=== PATIENT | male | born 1945 | race Caucasian/White ===

== ENCOUNTER 2025-02-13 09:14 | Inpatient (IN) ==
--- NOTE | 2025-01-19 15:01 | PAT Medication Instructions ---
Medication Instructions Date of Service January 19, 2025 Home Medications acetaminophen 500 mg tablet 500 mg PO QID PRN Pain atenolol 50 mg tablet 50 mg PO HS atorvastatin 20 mg tablet 20 mg PO HS empagliflozin 10 mg tablet (Jardiance) 10 mg PO QAM metformin 1,000 mg tablet 1,000 mg PO BID naproxen sodium 220 mg tablet (Aleve) 220 mg PO BID PRN Pain semaglutide 0.25 mg or 0.5 mg (2 mg/3 mL) subcutaneous pen injector (Ozempic) 0.5 mg subcut WK diabetes valsartan 80 mg tablet 80 mg PO HS ASK your surgeon for instructions naproxen sodium 220 mg tablet (Aleve) 220 mg PO BID PRN Pain STOP 7 days prior to surgery semaglutide 0.25 mg or 0.5 mg (2 mg/3 mL) subcutaneous pen injector (Ozempic) 0.5 mg subcut WK diabetes STOP taking 3 days before surgery empagliflozin 10 mg tablet (Jardiance) 10 mg PO QAM DO NOT take the morning of surgery metformin 1,000 mg tablet 1,000 mg PO BID Take morning of surgery With a small sip of water, OTHERWISE NOTHING TO EAT OR DRINK AFTER MIDNIGHT: acetaminophen 500 mg tablet 500 mg PO QID PRN Pain (if needed) Take evening before surgery acetaminophen 500 mg tablet 500 mg PO QID PRN Pain (if needed) atenolol 50 mg tablet 50 mg PO HS atorvastatin 20 mg tablet 20 mg PO HS metformin 1,000 mg tablet 1,000 mg PO BID valsartan 80 mg tablet 80 mg PO HS Other Notes If you have any questions please call us at [phone] or [phone] or [phone] or [phone]
--- NOTE | 2025-01-20 09:48 | Anesthesiology Consultation ---
Date of Service January 20, 2025 Assessment & Plan (1) Encounter for pre-operative examination: Chart Review Chart Review: Acceptable Risk for Surgery (pending PCP clearance ) and Patient seen in Pre Admission Testing - Awaiting PCP clearance scheduled 01/23/25- please fax preop testing to PCP per patient request (Dr Resendez- [facility]) - Check BSG AM DOS - Last dose of Ozempic scheduled 02/02/25- will be off Ozempic x 11 days by DOS on 02/13/25 Per PAT appt on 01/20/25, no recent illness/disease exposures, illness related symptoms, or recent illness/disease positive tests. Will leave to surgeon's discretion if preop Covid testing needed Teaching & Discussion Pre-Anesthesia Teaching/Discussion Notes: Instructed NPO after midnight before surgery,except medications with 15 cc of water. Medication instructions provided according to the [facility] guidelines. History Surgery Operation Date: 02/13/25 07:45 Proposed Procedures p Hardware Removal L3-S1, Decompression L2-L3, L5-S1 Fusion L2-S1 Spinal Cord Monitoring - Silver Esteban DO Height/Weight Height: 6 ft Weight: 87.4 kg Allergies Allergy/AdvReac Type Severity Reaction Status Date / Time No Known Allergies Allergy Verified 01/19/25 13:40 Medications Home Medications Medication Instructions Recorded Confirmed Last Taken acetaminophen 500 mg tablet 500 mg PO QID PRN Pain 01/19/25 01/19/25 Unknown atenolol 50 mg tablet 50 mg PO HS 01/19/25 01/19/25 Unknown atorvastatin 20 mg tablet 20 mg PO HS 01/19/25 01/19/25 Unknown empagliflozin 10 mg tablet 10 mg PO QAM 01/19/25 01/19/25 Unknown (Jardiance) metformin 1,000 mg tablet 1,000 mg PO BID 01/19/25 01/19/25 Unknown naproxen sodium 220 mg tablet 220 mg PO BID PRN Pain 01/19/25 01/19/25 Unknown (Aleve) semaglutide 0.25 mg or 0.5 mg (2 0.5 mg subcut WK diabetes 01/19/25 01/19/25 01/19/25 mg/3 mL) subcutaneous pen injector (Ozempic) valsartan 80 mg tablet 80 mg PO HS 01/19/25 01/19/25 Unknown Past Medical History Medical History Chronic kidney disease stage 3 - monitoring Degenerative disc disease Diabetes mellitus, type 2 History of prostate cancer ~2018 - treated with CyberKnife radiation treatments & had gold material treatment([facility]). monitoring currently, PSA WNL since. Hx of renal calculi passed on his own. Hyperlipidemia Hypertension Exercise / Class Metabolic Activity II 4-5 Yardwork/Stairs/Walk up hill (one flight of stairs - no chest pain or SOB ) Past Family History Family History Other No family history of adverse response to anesthesia Past Surgical History Surgical History History of colonoscopy History of hydrocelectomy unilateral History of prostate biopsy S/P lumbar spinal fusion L3-S1 (~) Dr John at [facility] Past Anesthesia History No Hx of Anesthesia Complications and No Family Hx of Anesthesia Complications History of PONV No Hx of PONV and No Hx of Motion Sickness Social History Smoking Status: Current some day smoker Smoking cigarettes per day: pipe occasional (advised on npo policy) Do You Dip or Chew Tobacco: No Hx Alcohol Use: Yes alcohol intake frequency: holidays/special occasions only Hx Substance Use: No substance use type: does not use Review of Systems - Hx of blood transfusion (around )- post op with previous spinal fusion- had possible reaction to transfusion- had facial redness so blood transfusion was stopped Patient denies chest pain, shortness of breath, dyspnea on exertion, reflux, cough, wheezing, palpitations. No hx of seizures, stroke, [place], apnea/snoring. No hx of blood clots or blood transfusions Physical Exam Vital Signs VITALS BP 143/86 P 56 TEMP 97.5 SP02 100% RESP 16 Constitutional no acute distress ENMT Mouth: + small oral opening; no TMJ clicking Thyromental Distance: > or= 3.5 Finger Breadths (4.0) Mallampati Class: IV Full dentures on top and bottom Neck + facial hair (advised to shave/trim ); neck extension not limited Respiratory normal respiratory effort; no respiratory distress Auscultation: lungs clear to auscultation bilaterally; no wheezes Cardiovascular Rate/Rhythm: regular rate and regular rhythm Heart Sounds: no murmur Vessels: no carotid bruit Musculoskeletal Spine: no pain with cervical ROM Extremities: extremities normal to inspection Psychiatric Orientation: alert Lab Results Anesthesia Preop Results Results Anesthesia Widget: WBC 6.56 K/ul (4.8-10.8) 01/20/25 Hgb 13.4 g/dl (14.0-18.0) L 01/20/25 Hct 38.6 % (42.0-52.0) L 01/20/25 Plt 212 K/uL (130-400) 01/20/25 Na 140 mmol/L (136-145) 01/20/25 K 5.0 mmol/L (3.5-5.1) 01/20/25 Cl 108 mmol/L (98-107) H 01/20/25 CO2 26 mmol/L (21-32) 01/20/25 BUN 34 mg/dl (6-23) H 01/20/25 Creat 1.26 mg/dl (0.6-1.4) 01/20/25 Glucose Level 168 mg/dl (70-99(Fasting)) H 01/20/25 PT 10.2 Seconds (9.0-12.0) 01/20/25 PTT 32 Seconds (21-31) H 01/20/25 INR 0.9 (0.9-1.1) 01/20/25 HA1c 7.5 % (4.5-5.6) H 01/20/25 Urine Color Yellow 01/20/25 Urine Appearance Clear (Clear) 01/20/25 Urine pH 5.5 (4.5-7.5) 01/20/25 Urine Specific [place] 1.035 (1.000-1.030) H 01/20/25 Urine Protein Trace (Negative) H 01/20/25 Urine Glucose (UA) 3+ (Negative) H 01/20/25 Urine Ketones Trace (Negative) H 01/20/25 Urine Blood Trace (Negative) H 01/20/25 Urine Nitrite Negative (Negative) 01/20/25 Urine Bilirubin Negative (Negative) 01/20/25 Urine Urobilinogen Negative (Negative) 01/20/25 Urine Leukocyte Esterase Negative (Negative) 01/20/25 Urine WBC (Auto) 0-5 /hpf (0-5) 01/20/25 Urine RBC (Auto) 3-5 /hpf (0-2) H 01/20/25 Urine Hyaline Casts (Auto) 0-2 /lpf (0-2) 01/20/25 Urine Epithelial Cells (Auto) 0-2 /hpf (0-2) 01/20/25 Urine Bacteria (Auto) None Seen (None Seen) 01/20/25 Blood Type AB Negative 01/20/25 Antibody Screen NEGATIVE 01/20/25 Testing Electrocardiogram Date: 01/20/25 SB with 1st degree AVB at 56bpm Inferior infarct, age undetermined When compared to EKG from May 17, 2011- no significant change was found per cardio Chest X-Ray Date: 01/20/25 Findings: + NAD
[2025-02-13] MEDS: LACTATED RINGER'S 1,000 ML IV SCH (09:52)
[2025-02-13] MEDS: ACETAMINOPHEN 500 MG TAB PO SCH (10:32)
[2025-02-13] MEDS: CeleBREX 200 MG CAP PO SCH (10:32)
[2025-02-13] MEDS: GABAPENTIN 300 MG CAP PO SCH (10:32)
[2025-02-13] MEDS: LR 60ML/HR IV SCH (10:32)
[2025-02-13] MEDS ORDERED: DEXAMETHASONE SOD INJ 4 MG/ML VIAL ONE (10:36)
[2025-02-13] MEDS ORDERED: PROPOFOL IV EMULSION 10 MG/ML 20 ML VIAL IV ONE (10:36)
[2025-02-13] MEDS ORDERED: fentaNYL citrate PF 100 MCG/2 ML VIAL ONE (10:36)
[2025-02-13] MEDS ORDERED: LIDOCAINE 2% 2 ML VIAL/AMP(20MG/ML) INFIL ONE (10:36)
[2025-02-13] MEDS ORDERED: ONDANSETRON INJ 2 MG/ML 2 ML VIAL ONE ×2 (10:36→16:28)
[2025-02-13] MEDS ORDERED: GLYCOPYRROLATE 0.2 MG/ML VIAL ONE (10:36)
[2025-02-13] MEDS ORDERED: ROCURONIUM BROMIDE 10 MG/ML 5 ML VIAL IV ONE ×2 (10:36→13:24)
[2025-02-13] MEDS ORDERED: PROMETHAZINE HCL 6.25 MG in SODIUM CHLORIDE 0.9% 50 ML IV PRN (10:42)
[2025-02-13] MEDS ORDERED: HYDROmorphone INJ 1 MG/ML SYRINGE IV PRN (10:42)
[2025-02-13] MEDS ORDERED: ATROPINE SULFATE 0.1 MG/ML 10ML SYR IV PRN (10:42)
--- NOTE | 2025-02-13 10:59 | History & Physical Bridge Note ---
Date of Service February 13, 2025 History & Physical Bridge Note I have examined the patient, reviewed the History & Physical and in the interval since the performance of the History & Physical I have noted the following changes of clinical significance: no changes noted
--- NOTE | 2025-02-13 11:00 | History & Physical Report ---
Date of Service February 13, 2025 Assessment & Plan (1) Spinal stenosis, lumbar region with neurogenic claudication: Plan: Hardware removal L3-S1 decompression L2-L3 L5-S1 fusion L2-S1 History of Present Illness Chief Complaint: Back and leg pain Primary Care Provider: Calvin Resendez MD This is an 79-year-old male presents with chronic system back and leg pain and failing course of nonoperative care is here for surgical invention. Allergies Allergy/AdvReac Type Severity Reaction Status Date / Time No Known Allergies Allergy Verified 02/13/25 09:51 Home Medications Medication Instructions Recorded Confirmed Type acetaminophen 500 mg tablet 500 mg PO QID PRN Pain 01/19/25 02/13/25 History atenolol 50 mg tablet 50 mg PO HS 01/19/25 02/13/25 History atorvastatin 20 mg tablet 20 mg PO HS 01/19/25 02/13/25 History empagliflozin 10 mg tablet 10 mg PO QAM 01/19/25 02/13/25 History (Jardiance) metformin 1,000 mg tablet 1,000 mg PO BID 01/19/25 02/13/25 History naproxen sodium 220 mg tablet 220 mg PO BID PRN Pain 01/19/25 02/13/25 History (Aleve) semaglutide 0.25 mg or 0.5 mg (2 0.5 mg subcut WK diabetes 01/19/25 02/13/25 History mg/3 mL) subcutaneous pen injector (Ozempic) valsartan 80 mg tablet (Diovan) 80 mg PO HS 01/19/25 02/13/25 History Past Med/Surg History Problem List (Updated 02/13/25 @ 11:00 by Silver Esteban DO) Spinal stenosis, lumbar region with neurogenic claudication Encounter for pre-operative examination Medical History (Updated 02/13/25 @ 11:00 by Silver Esteban DO) AAA (abdominal aortic aneurysm) 3.3cm per Oct 2024 u/s per PCP records Diabetes mellitus, type 2 Hyperlipidemia Hypertension Degenerative disc disease Chronic kidney disease stage 3 - monitoring Hx of renal calculi passed on his own. History of prostate cancer ~2017 - treated with CyberKnife radiation treatments & had gold material treatment([facility]). monitoring currently, PSA WNL since. Surgical History History of hydrocelectomy unilateral History of colonoscopy History of prostate biopsy S/P lumbar spinal fusion L3-S1 (~) Dr John at [facility] Family History Other No family history of adverse response to anesthesia Social History Smoking Status: Current some day smoker Tobacco Type: Pipe Cigarettes Per Day: pipe occasional (advised on npo policy); Second Hand Exposure: No; Do You Dip or Chew Tobacco: No; Tobacco Cessation Education Requested by Patient: No Hx Alcohol Use: Yes Hx Substance Use: No Preferred Language: French Communication Ability: Effective Rehab Physician Required: No Beliefs That Will Affect Care: None Current Living Situation: Spouse Other Information That Helps Us Care for You: No Feels Safe at Home: Yes Safety Concerns: Feels Safe At This Time Assistive Devices: Walker Physical Exam Physical Exam: Patient is alert and oriented heart regular rhythm lungs clear Results & Data Results & Data Vital Signs (Past 12 Hours) Vital Signs Temp Pulse Resp BP Pulse Ox O2 Del Method 02/13/25 09:50 36.9 C 60 20 148/77 H 100 Room Air
[2025-02-13] MEDS: ceFAZolin 2000MG 2,000 MG/15 ML SYR IV SCH ×2 (11:27→20:30)
[2025-02-13] MEDS ORDERED: ePHEDrine sulfate 50 MG/5 ML SYR ONE (11:47)
[2025-02-13] MEDS: BUPIVACAINE/EPINEPHRINE 0.25% 1:200,000 30 ML VIAL ONE (11:50)
[2025-02-13] MEDS ORDERED: HYDROmorphone INJ 2 MG/ML SYR/VIAL ONE (11:53)
[2025-02-13] MEDS ORDERED: PHENYLEPHRINE 100MCG/ML 5ML SYR ONE (12:43)
[2025-02-13] MEDS ORDERED: PHENYLEPHRINE HCL 10 MG/ML VIAL ONE (14:19)
[2025-02-13] MEDS ORDERED: SUGAMMADEX SODIUM 200 MG/2 ML VIAL IV ONE (14:25)
[2025-02-13] MEDS: FLOSEAL HEMOSTATIC MATRIX 10ML TOP ONE (14:35)
[2025-02-13] MEDS: ceFAZolin 330 MG/ML 1 GM VIAL ONE (14:36)
--- NOTE | 2025-02-13 14:56 | Operative Report ---
Post Operative Report Pre & Post Diagnosis Operation Date: 02/13/25 10:55 Pre-Op Diagnosis: #1 lumbar spondylosis with radiculopathy #2 lumbar spinal stenosis Post-Op Diagnosis: Same I identified the patient and participated in the time-out.: Yes Procedure Operation Date: 02/13/25 10:55 Actual Procedures #1 removal of posterior instrumentation L3-L5. #2 exploration of fusion L3-L5. #3 lumbar decompression with bilateral medial facetectomies and foraminotomies L2-L3 L5-S1. #4 posterior spinal fusion L2-L3 L5-S1. #5 placement of posterior instrumentation L2-S1 using camber. #6 interbody fusion L2-L3 L5-S1. #7 placement of Spira 13 x 26 mm at L2-L3 and 9 x 26 mm at L5-S1. #8 placement locally harvested morselized autograft and posterior gutters. #9 placement infuse collagen sponge combined with Koros in the posterior lateral gutters and os design interbody space. #10 application of versa wrap of the exposed dura. Surgeon Silver Esteban, DO Directory Clerk Alexi Peters Estimated Blood Loss 1,250 Findings See Below Patient lost over 1200 cc of blood. This is largely due to the necessity of removing previous instrumentation which was quite difficult in nature. Technical difficulty with significant and recommending an modifier 22. Specimens None Indications This is an 79-year-old male presents publish diagnosis of failing course of nonoperative care is here for surgical invention. Description of Procedure Patient was met with identified informed consent obtained. Patient was then taken to the operative suite underwent vision placement by position the [place] table top Ramin frame. All bony promises well-padded eyes expected to ensure no external pressure placed upon them. This point the thoracolumbar spine was prepped and draped no sterile fashion. Sharp dissection with the assistance of Bovie cautery from down to and exposing the lamina transverse processes of L2 and instrumentation at L3 L4-5 bilaterally. As well as the sacral ala. I then proceeded move the hardware bilaterally at L3-L4-L5 noting marked maturation of the bone graft. I then performed a complete laminectomy of L5 including bilateral medial facetectomies and foraminotomies addressing severe neuroforaminal stenosis. I then proceeded to perform a complete laminectomy of L2 with bilateral medial facetectomies and foraminotomies addressing severe subarticular and foraminal stenosis. Pedicle screws were then placed in L2-L3 L5 and S1 levels bilaterally with assistance of fluoroscopy in the process chester placed. By way of a transforaminal approach on the left complete discectomy of L5-S1 was performed endplates guided to subcortical main bone and 9 x 26 mm Spira cage filled with os design bone graft tapped in position. Then proceeded to L2-L3 and by way of a transforaminal approach on the left complete discectomy performed endplates guided to subcortical mean bone and a 13 x 26 mm spiral cage filled with os design bone graft tapped in position. The rods were then locked in a final position bilaterally. The transverse processes of L2-L3 L5 and the sacral ala burred to subcortical bleeding bone. Infuse collagen sponge, with Koros and local autograft placed in the posterior gutters. Versa wrap placed over the exposed dura. 15 round ZBIGNIEW drain inserted. The incision was then closed with 1 Vicryl in the fascia 2-0 Vicryl subcutaneously and 4 Monocryl for fascial closure. Steri-Strips sterile dressing placed. Patient waken taken to PACU in stable condition. Please note Alexi record was present at the entire procedure and while the patient positioning complex portion of the surgery and final skin closure. I attest to the content of the Intraoperative Record and any orders documented therein. Any exceptions are noted below.
--- NOTE | 2025-02-13 15:17 | Fluoroscopy Report ---
FL lumbar spine 2-3V CLINICAL HISTORY: L3-S1 HW REMOVAL L2-L3 L5-S1 DECOMPRESSION L2-S1 FUSION COMPARISON STUDY: None FLUOROSCOPY TIME: 28 seconds FLUOROSCOPY IMAGES: 5 EXPOSURE DOSE: 19 mGy FINDINGS: Fluoroscopy was provided for lumbar fusion. IMPRESSION: Intraoperative fluoroscopy. ACT 112: Negative or not required by law. Electronically signed by: Bulmaro Lord M.D. 02/13/2025 3:16 PM
[2025-02-13] MEDS ORDERED: ALBUMIN HUMAN 5% 12.5 GM/250 ML VIAL IV ONE (16:35)
[2025-02-13 17:11] LABS: Hematocrit (blood only) 26.9 % (42.0-52.0); Hemoglobin 9.4 g/dl (14.0-18.0)
--- NOTE | 2025-02-13 17:29 | Anesthesiology Progress Note ---
Date of Service February 13, 2025 Anesthesia Post Procedure Vital Signs Vital Signs: Temp Pulse Pulse Resp BP Pulse Ox O2 Del Method 02/13/25 17:15 74 20 115/56 L 100 Nasal Cannula 02/13/25 17:05 36.5 C 75 12 116/57 L 100 Nasal Cannula 02/13/25 16:55 73 12 119/59 L 100 Nasal Cannula 02/13/25 16:45 71 12 93/50 L 100 Nasal Cannula 02/13/25 16:35 77 12 90/53 L 100 Nasal Cannula 02/13/25 16:25 73 13 89/53 L 100 Nasal Cannula 02/13/25 16:15 69 12 88/50 L 100 Nasal Cannula 02/13/25 16:05 72 12 87/49 L 100 Nasal Cannula 02/13/25 15:55 74 12 89/55 L 100 Nasal Cannula 02/13/25 15:45 83 12 87/49 L 100 Nasal Cannula 02/13/25 15:35 79 12 109/65 100 Nasal Cannula 02/13/25 15:25 82 12 77/51 L 100 Oxymask 02/13/25 15:18 36.0 C L 79 16 122/58 L 100 Oxymask 02/13/25 09:50 36.9 C 60 20 148/77 H 100 Room Air O2 Flow Rate 02/13/25 17:15 2 02/13/25 17:05 2 02/13/25 16:55 2 02/13/25 16:45 2 02/13/25 16:35 2 02/13/25 16:25 2 02/13/25 16:15 2 02/13/25 16:05 2 02/13/25 15:55 2 02/13/25 15:45 2 02/13/25 15:35 2 02/13/25 15:25 6 02/13/25 15:18 6 02/13/25 09:50 Pain Intensity Lower Back: Pain Intensity: 5 Back: Pain Intensity: 2 Transfer of Care Handoff Completed per policy Notes Mental Status: alert / awake / arousable Patient Amnestic to Procedure: Yes Nausea / Vomiting: adequately controlled Pain: adequately controlled Airway Patency, RR, SpO2: stable & adequate BP & HR: stable & adequate Hydration State: stable & adequate Anesthetic Complications: no major complications apparent
[2025-02-13] MEDS ORDERED: hydrOXYzine HCl 25 MG TAB PO PRN (17:44)
[2025-02-13] MEDS ORDERED: METOCLOPRAMIDE HCL INJ 5 MG/ML 2 ML VIAL IV PRN (17:44)
[2025-02-13] MEDS ORDERED: DO NOT ADMINISTER FLU VACCINE PRN (17:44)
[2025-02-13] MEDS ORDERED: bisacodyL 10 MG SUPP PR PRN (17:44)
[2025-02-13] MEDS ORDERED: ONDANSETRON INJ 2 MG/ML 2 ML VIAL IV PRN (17:44)
[2025-02-13] MEDS ORDERED: diphenhydrAMINE Capsule 25 MG CAP PO PRN (17:44)
[2025-02-13] MEDS ORDERED: ONDANSETRON 4 MG OD TAB PO PRN (17:44)
[2025-02-13] MEDS ORDERED: FAMOTIDINE 20 MG TAB PO PRN (17:44)
[2025-02-13] MEDS ORDERED: MAGNESIUM HYDROXIDE SUSP 30 ML UDC PO PRN (17:44)
[2025-02-13] MEDS ORDERED: LORazepam 0.5 MG TAB PO PRN (17:44)
[2025-02-13] MEDS ORDERED: ACETAMINOPHEN 1,000 MG/100 ML VIAL IV PRN (17:44)
[2025-02-13] MEDS ORDERED: DO NOT ADMINISTER PNEUMOCOCCAL VACCINE PRN (17:44)
[2025-02-13] MEDS ORDERED: PROMETHAZINE 12.5 MG/50.5 ML BAG IV PRN (17:44)
[2025-02-13] MEDS ORDERED: ACETAMINOPHEN 500 MG TAB PO PRN (17:44)
[2025-02-13] MEDS ORDERED: ALUMINUM/MAGNESIUM SUSP 30 ML UDC PO PRN (17:44)
[2025-02-13] MEDS ORDERED: LORazepam 2 MG/1 ML VIAL IV PRN (17:44)
[2025-02-13] MEDS ORDERED: NALOXONE HCL 0.4 MG/1 ML VIAL/CARP IV PRN (17:44)
[2025-02-13] MEDS ORDERED: SOD PHOSPHATE/SOD BIPHOSPHATE ENEMA 132 ML BTL PR PRN (17:44)
[2025-02-13] MEDS: PROMETHAZINE HCL INJ 25 MG/ML 1 ML VIAL ONE (17:55)
[2025-02-13] MEDS: SODIUM CHLORIDE 0.9% 50 ML BAG ONE (17:55)
[2025-02-13] MEDS ORDERED: GLUCOSE 10 TAB/TUBE PO PRN (19:20)
[2025-02-13] MEDS ORDERED: GLUCOSE 40% GEL 15 GM TUBE PO PRN (19:20)
[2025-02-13] MEDS ORDERED: DEXTROSE 50% 50 ML SYRINGE IV PRN (19:20)
[2025-02-13] MEDS ORDERED: GLUCAGON FOR INJ 1 MG VIAL SQ PRN (19:20)
[2025-02-13] MEDS ORDERED: CARBOHYDRATES FOR HYPOGLYCEMIA PO PRN (19:20)
--- NOTE | 2025-02-13 19:25 | Consultation ---
Date of Consultation February 13, 2025 Assessment & Plan (1) Status post lumbar spine operative procedure for decompression of spinal cord: (2) Acute blood loss as cause of postoperative anemia: (3) Spinal stenosis, lumbar region with neurogenic claudication: (4) Diabetes mellitus, type 2: (5) Hypertension: (6) Chronic kidney disease: Plan Patient status post lumbar procedure for decompression of the lumbar spine with significant amount of blood loss intraoperatively. Patient was hypotensive and was resuscitated with IV fluids and albumin. Patient now asymptomatic on the medical floor. Patient's MAP has been greater than 65 on all the most recent blood pressure readings Patient is not tachycardic or lightheaded. Continue to monitor hemoglobin, consider transfusion of PRBCs if hemoglobin less than 7 and/or patient becomes symptomatic. Hold Diovan due to blood pressure Atenolol has hold parameters, hold if meets criteria Short acting insulin sliding scale per parameters to manage his diabetes Monitor electrolytes and renal function Pain management and VTE prophylaxis per attending History of Present Illness Requesting Physician: Dr. Esteban Reason for Consultation: Postoperative management diabetes, hypertension, blood loss Attending Physician: Silver Esteban, DO History of Present Illness Patient is an 79-year-old gentleman presents to [facility] earlier today under the service of Dr. Esteban. Patient underwent lumbar surgical procedure outlined as follows: #1 removal of posterior instrumentation L3-L5. #2 exploration of fusion L3-L5. #3 lumbar decompression with bilateral medial facetectomies and foraminotomies L2-L3 L5-S1. #4 posterior spinal fusion L2-L3 L5-S1. #5 placement of posterior instrumentation L2-S1 using camber. #6 interbody fusion L2-L3 L5-S1. #7 placement of Spira 13 x 26 mm at L2-L3 and 9 x 26 mm at L5-S1. #8 placement locally harvested morselized autograft and posterior gutters. #9 placement infuse collagen sponge combined with Koros in the posterior lateral gutters and os design interbody space. #10 application of versa wrap of the exposed dura. During the procedure patient had significant amount of blood loss, reported approximate 1200 cc. Patient did not have hypotension associated with this and was resuscitated with 2600 cc of normal saline and 500 cc of albumin. We were consulted to evaluate the patient up on the medical floor after he had returned from PACU. Time of my evaluation the patient is sitting up in bed eating his dinner. His is at his bedside. He denies any lightheadedness and dizziness. No shortness of breath. No chest pain. He is tolerated the meal. He is aware that he had some significant blood loss. He states that when he had his first lumbar surgery he also had some blood loss and required a blood transfusion. Apparently at that time he had significant reaction to the blood transfusion. He is hesitant to have a blood transfusion again unless absolutely necessary. He understands that he will most likely need insulin while here in the hospital to manage his diabetes. Also he is aware that the steroids he receives with increases his glucose. Otherwise he states that he is feeling better. Back feels better and he denies any significant pain. Allergies Allergy/AdvReac Type Severity Reaction Status Date / Time No Known Allergies Allergy Verified 02/13/25 09:51 Home Medications Medication Instructions Recorded Confirmed Type acetaminophen 500 mg tablet 500 mg PO QID PRN Pain 01/19/25 02/13/25 History atenolol 50 mg tablet 50 mg PO HS 01/19/25 02/13/25 History atorvastatin 20 mg tablet 20 mg PO HS 01/19/25 02/13/25 History empagliflozin 10 mg tablet 10 mg PO QAM 01/19/25 02/13/25 History (Jardiance) metformin 1,000 mg tablet 1,000 mg PO BID 01/19/25 02/13/25 History naproxen sodium 220 mg tablet 220 mg PO BID PRN Pain 01/19/25 02/13/25 History (Aleve) semaglutide 0.25 mg or 0.5 mg (2 0.5 mg subcut WK diabetes 01/19/25 02/13/25 History mg/3 mL) subcutaneous pen injector (Ozempic) valsartan 80 mg tablet (Diovan) 80 mg PO HS 01/19/25 02/13/25 History Patient History Medical History (Updated 02/13/25 @ 19:28 by Aidan Mann DO) AAA (abdominal aortic aneurysm) 3.3cm per Oct 2024 u/s per PCP records Diabetes mellitus, type 2 Hyperlipidemia Hypertension Degenerative disc disease Chronic kidney disease stage 3 - monitoring Hx of renal calculi passed on his own. History of prostate cancer ~2017 - treated with CyberKnife radiation treatments & had gold material treatment([facility]). monitoring currently, PSA WNL since. Surgical History (Updated 02/13/25 @ 19:28 by Aidan Mann DO) History of hydrocelectomy unilateral History of colonoscopy History of prostate biopsy S/P lumbar spinal fusion L3-S1 (~) Dr John at [facility] Family History Other No family history of adverse response to anesthesia Social History Smoking Status: Current some day smoker Tobacco Type: Pipe Cigarettes Per Day: pipe occasional (advised on npo policy); Second Hand Exposure: No; Do You Dip or Chew Tobacco: No; Tobacco Cessation Education Requested by Patient: No Hx Alcohol Use: Yes Hx Substance Use: No Preferred Language: Wolof Communication Ability: Effective Manager Laundry Required: No Beliefs That Will Affect Care: None Current Living Situation: Spouse Other Information That Helps Us Care for You: No Feels Safe at Home: Yes Safety Concerns: Feels Safe At This Time Assistive Devices: Walker Review of Systems Review of Systems: Pertinent positive and negative review of systems as mentioned in the HPI Physical Exam Physical Exam: Constitutional: Alert, nontoxic, no acute distress HEENT: Mucous membranes moist. Sclera clear Neck: Soft, no adenopathy Lungs: Clear to auscultation, decreased, no wheezes rales or rhonchi CV: S1-S2, regular Abdomen: Soft, nontender, nondistended Extremities: No significant edema Musculoskeletal: Surgical dressing ZBIGNIEW drain coming from lumbar spine Neuro: No focal deficits Psych: Cooperative, normal mood Results & Data Vital Signs (Past 12 Hours) Vital Signs Temp Pulse Pulse Resp BP Pulse Ox O2 Del Method 02/13/25 18:30 36.4 C L 75 18 94/59 L 100 Nasal Cannula 02/13/25 18:00 71 18 99/60 L 99 Nasal Cannula 02/13/25 17:30 36.5 C 84 18 95/55 L 99 Nasal Cannula 02/13/25 17:15 74 20 115/56 L 100 Nasal Cannula 02/13/25 17:05 36.5 C 75 12 116/57 L 100 Nasal Cannula 02/13/25 16:55 73 12 119/59 L 100 Nasal Cannula 02/13/25 16:45 71 12 93/50 L 100 Nasal Cannula 02/13/25 16:35 77 12 90/53 L 100 Nasal Cannula 02/13/25 16:25 73 13 89/53 L 100 Nasal Cannula 02/13/25 16:15 69 12 88/50 L 100 Nasal Cannula 02/13/25 16:05 72 12 87/49 L 100 Nasal Cannula 02/13/25 15:55 74 12 89/55 L 100 Nasal Cannula 02/13/25 15:45 83 12 87/49 L 100 Nasal Cannula 02/13/25 15:35 79 12 109/65 100 Nasal Cannula 02/13/25 15:25 82 12 77/51 L 100 Oxymask 02/13/25 15:18 36.0 C L 79 16 122/58 L 100 Oxymask 02/13/25 09:50 36.9 C 60 20 148/77 H 100 Room Air O2 Flow Rate 02/13/25 18:30 2 02/13/25 18:00 2 02/13/25 17:30 2 02/13/25 17:15 2 02/13/25 17:05 2 02/13/25 16:55 2 02/13/25 16:45 2 02/13/25 16:35 2 02/13/25 16:25 2 02/13/25 16:15 2 02/13/25 16:05 2 02/13/25 15:55 2 02/13/25 15:45 2 02/13/25 15:35 2 02/13/25 15:25 6 02/13/25 15:18 6 02/13/25 09:50 Diagnostic Findings Reviewed imaging, laboratory and diagnostic studies. Pertinent findings as below. Hemoglobin 13.4 prior to admission, postoperatively hemoglobin 9.4 Glucose reviewed
[2025-02-13] MEDS: DOCUSATE SODIUM/SENNA 50/8.6MG TAB PO SCH (20:30)
[2025-02-13] MEDS: ATORVASTATIN 20 MG TAB PO SCH (20:30)
[2025-02-13] MEDS: ATENOLOL 50 MG TABLET PO SCH (20:30)
[2025-02-13] MEDS: oxyCODONE HCL IR 5 MG TAB (IMMEDIATE RELEASE) PO PRN (20:32)
[2025-02-13] MEDS: INSULIN ASPART PER UNIT CHARGE SC SCH (20:41)
--- OUTSIDE RECORDS SUMMARY | 2025-02-13 20:43 | External Medical Summary | Summary of Care ---
Author Name Unknown Organization [facility] Address [address] [facility] [facility] [place] [address] Phone [phone] Care Team Providers Care Tunnel Man Name Role Phone Calvin Resendez MD Primary Care Provider [phone] Reason for Visit * Reason Onset Date Comments Advice 01/28/2025 Encounter Details Date Type Department Care Team (Late st Contact Info) Description 01/28/2025 Telephone [facility] [address] [facility] [place] [phone] Calvin Resendez MD [address] [facility] [address] Advice Allergies Active Allergy Reactions Criticality Noted Date Comments Bee Venom 07/24/2014 documented as of this encounter (statuses as of 02/10/2025) Medications EPIPEN 2-GRZEGORZ 0.3 MG/0.3ML IJ SOAJ as needed Act elton BD Pen Needle Short U/F 31G X 8 MM (Insulin Pen Needle)Indications :Type 2 diabetes mellitus with hemoglobin A1c goal of less than 7.0% ([facility]) USE DIRECTED WITH VICTOZA 100 Each 3 01/19/20 22 Active metFORMIN HCl 1000 MG Oral Tablet (Glucophage)Indica tions:Type 2 diabetes mellitus with hemoglobin A1c goal of less than 7.0% (HCC) take 1 tablet by mouth twice a day 180 Tablet 1 08/01/20 23 Active Ozempic (0.25 or 0.5 MG/DOSE) 2 MG/3ML Solution Pen-injector (Semaglutide(0.25 or 0.5MG/DOS)) inject 0.5 milligram subcutaneously every week 9 mL 1 05/15/20 Active Gabapentin 100 MG Oral Capsule (Neurontin)Indicat ions:Chronic bilateral low back pain with left-sided sciatica 2 three times a day 540 Capsule 1 05/15/20 Active Additional Information Patient not taking.Reported on 01/23/2025 Atenolol 50 MG Oral Tablet (Tenormin)Indicati ons:HTN, goal below 130/80 take 1 tablet by mouth once daily 90 Tablet 1 05/15/20 Active Atorvastatin Calcium 20 MG Oral Tablet (Lipitor)Indicatio ns:Hyperlipidemia, unspecified hyperlipidemia type take 1 tablet by mouth once daily 90 Tablet 2 07/15/20 Active Valsartan 80 MG Oral Tablet (Diovan)Indication s:HTN, goal below 130/80 take 1 tablet by mouth at bedtime 90 Tablet 1 11/10/20 24 Active Jardiance 10 MG Oral Tablet (Empagliflozin) take 1 tablet by mouth daily every morning 90 Tablet 1 12/07/19 Active documented as of this encounter (statuses as of 02/10/2025) Active Problems Problem Noted Date Diagnosed Date Type 2 diabetes mellitus wit h stage 3a chronic kidney disease, without long-term current use of insulin 01/23/2025 AAA (abdominal aortic aneurysm) 11/04/2024 Overview (11/04/2024): 3.3 cm AAA noted on renal us 10/29/24 Type 2 diabetes mellitus wit h stage 3 chronic kidney disease, without long-term current use of insulin 12/01/2020 Hypertensive kidney disease with stage 3a chronic kidney disease 09/27/2020 Overview: Per CKD protocol Spinal stenosis of lumbar re gion without neurogenic claudication 08/28/2019 History of prostate cancer 12/27/2018 Overview (01/05/2023): Follows with [facility] Anemia of chronic disease 11/03/2016 Status post lumbar spinal fusion 08/13/2015 Type 2 diabetes mellitus wit h hemoglobin A1c goal of less than 7.0% 07/24/2014 Overview (03/14/2016): ICD-10 update of inactive term HTN, goal below 130/80 07/24/2014 Hyperlipidemia 07/24/2014 Displacement of lumbar inter vertebral disc without myelopathy 05/30/2011 documented as of this encounter (statuses as of 02/10/2025) Resolved Problems Problem Noted Date Diagnosed Date Resolved Date Type 2 diabetes mellitus wit h stage 3a chronic kidney disease, without long-term current use of insulin 02/05/2024 09/09/2024 Chronic kidney disease, stage 3a 01/02/2022 01/05/2023 Overview: Per CKD protocol Diabetes mellitus with stage 3 chronic kidney disease 09/27/2020 01/05/2023 Overview: Per CKD protocol Hypertensive kidney disease with chronic kidney disease stage III 06/24/2019 09/30/2020 Overview: Per CKD protocol Benign hypertensive kidney d isease with chronic kidney disease stage I through stage IV, or unspecified(403.10) 03/29/2018 12/27/2018 Type 2 diabetes mellitus wit h stage 3 chronic kidney disease, without long-term current use of insulin 03/29/2018 09/30/2020 Overview: Per CKD protocol Kidney disease, chronic, sta ge III (GFR 30-59 ml/min) 08/17/2015 04/11/2018 Degenerative disc disease, lumbar 08/13/2015 12/27/2018 Sacral back pain 08/13/2015 08/28/2019 Lumbago 08/13/2015 12/27/2018 documented as of this encounter (statuses as of 02/10/2025) Immunizations Name Administration Dates Next Due COVID-19 mRNA, LNP-s, No Pre serve, 2-Dose Series (GID Group) 09/24/2021,02/07/2021,01/12/2021 COVID-19, MRNA-LNP, PF, 30 M CG/0.3 mL, 12 YRS AND ABOVE, IM (PFIZER-Comirnat) 09/09/2024 Pneumococcal Conjugate Vacc, 13 Valent (Prevnar) 02/04/2016 Pneumococcal Polysaccharide PPV23 (Pneumovax) 12/09/2010 Season Influenza, Quad, PF, Adjuvanted, 65+ Yrs, IM (FLUAD) 08/20/2020 Seasonal Influenza Vac., MDV , IM, 0.5 mL (Fluzone) 07/24/2014,10/24/2013,10/19/2012,10/06,09/26/2010,10/19/2009 Seasonal Influenza, High Dos e, Trivalent, PF, IM (Fluzone HD) 09/09/2024 Seasonal Influenza, PF, 6 M & above, IM , (FluLaval or Fluzone) 12/27/2018,08/17/2017 Seasonal Influenza, Quadriva lent Hd (Fluzone Hd) 11/14/2023,01/05/2023,12/12/2021 Seasonal Influenza, Quadriva lent, No Preserve, IM 11/03/2016,08/13/2015 Seasonal Influenza, Trivalen t, Adjuvanted, 65+ YRS, PF, (Fluad) 08/28/2019 TDAP (age 10 and older)(Boostrix) 03/29/2018 Varicella Zoster Vaccine (Adult) 08/13/2015 Zoster Vaccine Recombinant (Shingrix) 06/14/2022 ,12/20/2021 documented as of this encounter Social History Tobacco Use Types Packs/Day Years Used Date Smoking Tobacco: Some Days Pipe Smokeless Tobacco: Never Alcohol Use Standard Drinks/Week Comments Not Currently 1 (1 standard drink = 0.6 oz pur e alcohol) not since 06/2024 PHQ-2 Answer Date Recorded PHQ Adult Total Score 0 09/09/2024 Hunger Vital Sign Answer Date Recorded Within the past 12 months, y ou worried that your food would run out before you got the money to buy more. Never true 02/05/20 24 Within the past 12 months, t he food you bought just didn't last and you didn't have money to get more. Never true 02/05/2024 Childcare Answer Date Recorded Do you feel overwhelmed with taking care of a child, family member or friend? No 02/05/2024 Does your family need help f inding childcare? (Household - for ages 0-17 years) Not on file 02/05/2024 Clothing Answer Date Recorded Have you been unable to get clothing when it was really needed? No 02/05/2024 Is your family able to get c lothes or diapers when needed? (Household - for ages 0-17 years) Not on file 02/05/2024 Personal Safety Answer Date Recorded Do you feel unsafe or have concerns for your saf ety? No 02/05/2024 Do you have concerns for you r family's safety? (Household - for ages 0-17 years) Not on file 02/05/2024 Utilities Answer Date Recorded Do you have trouble paying y our heating, water, or electric bill? No 02/05/2024 Is your family able to pay t he heat, water, or electric bill? (Household - for ages 0-17 years) Not on file 02/05/2024 Does your family have access to good internet? (Household - for ages 0-17 years) Not on file 02/05/2024 Employment Status Answer Date Recorded Are you unemployed or without regular income? No 02/05/2024 Does the household have a [facility] source [facility] income? (Household - for ages 0-17 years) Not on file 02/05/2024 Social Connections Answer Date Recorded How often do you feel lonely or isolated from th ose around you? Never 02/05/2024 Financial Resource Strain Answer Date R ecorded Do you have any trouble payi ng for your medications, or do you think you might in the future? No 02/05/2024 Does your family have troubl e paying for medicine? (Household - for ages 0-17 years) Not on file 02/05/2024 Transportation Needs Answer Date Record ed READ ONLY Do you have troubl e getting a ride to medical visits or work? Never True 02/05/2024 Does your family have a hard time getting a ride to doctors visits? (Household - for ages 0-17 years) Not on file 02/05/2024 Has lack of transportation k ept you from medical appointments, meetings, work, or from getting things needed for daily living? Check all that apply. (Adult - for ages 18 years and over) Not on file 02/05/2024 Do you (or your family) have trouble finding or paying for a ride (transportation)? (Household - for ages 0-17 years) Not on file 02/05/2024 Housing Stability Answer Date Recorded Do you currently live in a s helter or have no steady place to sleep at night? No 02/05/2024 READ ONLY Do you think you a re at risk of becoming homeless? No 02/05/2024 Does your family worry about paying for your home or becoming homeless? (Household - for ages 0-17 years) Not on file 0 02/05/2024 Are you homeless or worried that you might be in the future? (Adult - for ages 18 years and over) Not on file Are you (or your family) kian eless or worried that you might be in the future? (Household - for ages 0-17 years) Not on file Food Insecurity Answer Date Recorded Do you need food for this week? No 02/05/2024 Are you able to get enough f ood for your family? (Household - for ages 0-17 years) Not on file 02/05/2024 Does your family need food t his week? (Household - for ages 0-17 years) Not on file 02/05/2024 Do you always have enough fo od for your family? (Household - for ages 0-17 years) Not on file 02/05/2024 Food Insecurity Answer Date Recorded Within the past 12 months, y ou worried that your food would run out before you got the money to buy more. Never true 02/05/20 24 Within the past 12 months, t he food you bought just didn't last and you didn't have money to get more. Never true 02/05/2024 Do you need food for this week? No 02/05/2024 Sex and Gender Information Value Date Recorded Sex Assigned at Male 06/12/2022 8:06 AM EDT Legal Sex Male 6:53 AM EST Gender Identity Not on file Sexual Orientation Not on file documented as of this encounter Miscellaneous Notes * Telephone Encounter - Rochelle Franco NRCMA - 02/09/2025 4:02 PM EDT Zoey notified. * Telephone Encounter - Bo Grover MD - 02/06/2025 3:56 PM EDT Yes, cleared for surgery * Telephone Encounter - Christianne Lujan LPN - 02/06/2025 11:52 AM EDT Pre-op clearance appt done 01/23/25 Dr Alvarado. Preop labs, EKG and CXR dated 01/20 are now available in chart. * Telephone Encounter - Cynthia Thomas OSA - 02/06/2025 9:08 AM EDT Danielle from [facility] called to ask that the doctor review the pre- op testing she loaded into [facility] and let them know if the patient is cleared. Surgery is Next Week.Thank You. * Telephone Encounter - Deana Holland OSA - 01/28/2025 10:35 AM EDT Pre op clearance testing was faxed to office, needs reviewed and posted to [employer]. documented in this encounter Plan of Treatment Upcoming Encounters Date Type Department Care Team (Late st Contact Info) Description 03/16/2025 7:00 AM EDT [facility] [place] [phone] Calvin Resendez MD [address] [place] [address] Health Maintenance Due Date Last Done Comments DISCUSS TOBACCO CESSATION (REFER TO SMARTSET #[id number]) 11/03/2017 11/03/2016 (Discussed) Adult Wellness Visit 06/12/2023 06/12/2022 B-12 11/14/2024 11/14/2023, 12/20, 08/28/2019, Additional history exists Albumin/Creatinine Ratio 02/07/2025 024, 01/05/2023, 06/13/2022, Additional history exists COVID-19 Vaccine ( season) 2025 09/09/2024, 09/24/2021, 02/07/2021, Additional history exists Diabetic Eye Exam 06/16/2025 06/16/2024, , 04/11/2023, Additional history exists GFR 07/23/2025 01/20/2025, 08/20, 02/05/2024, Additional history exists HbA1c 07/23/2025 01/20/2025, 08/20, 02/05/2024, Additional history exists CKD PHOS USE SMARTSET [id number] 09/09/202508/20, 02/05/2024, 07/16/2023, Additional history exists Depression Screening 09/09/2025 09/09/2024 Diabetic Foot Exam 09/09/2025 09/09/2024, 0 07/16/2023, 06/12/2022, Additional history exists CKD HGB USE SMARTSET 22953 01/20/202601/20, 09/09/2024, 03/28/2023, Additional history exists DTap/Tdap Vaccines (2 - Td or Tdap) 03/29/2028 03/29/2018 Pneumococcal Vaccine: 50+ Years Completed 02/04/2016, 12/09/2010 Zoster Vaccines Completed 06/14/2022, 02/0 11/2021, 08/13/2015 Influenza Vaccine (FLU shot) Completed , 11/14/2023, 01/05/2023, Additional history exists HPV (Gardasil) Vaccine Aged Out No lo nger eligible based on patient's age to complete this topic Hepatitis B Vaccine Aged Out No longe r eligible based on patient's age to complete this topic MENINGOCOCCAL (MENACTRA/MENVEO) Aged Out No longer eligible based on patient's age to complete this topic Meningitis B Vaccine (Bexsero/Trumemba) Aged Out No longer eligible based on patient's age to complete this topic documented as of this encounter Medical Devices Not on filedocumented as of this encounter Care Teams Tunnel Man Relationship Specialty Start Date End Date Calvin Resendez MD [address] [place] [address] PCP - General Family Medicine 12/12/21 documented as of this encounter
--- OUTSIDE RECORDS SUMMARY | 2025-02-13 20:43 | External Medical Summary | Summary of Care ---
Author Name Unknown Organization [facility] Address [address] [facility] [place] [address] Phone [phone] Care Team Providers Care Bladder Tier Name Role Phone Augie Freire MD Primary Care Provider [phone] [phone] Reason for Visit * Reason Comments eRx-Medication Refill Encounter Details Date Type Department Care Team (Late st Contact Info) Description 02/11/2025 Refill [facility] [address] [place] [phone] Augie Freire MD [address] [place] [address] Type 2 diabetes mellitus with hemoglobin A1c goal of less than 7.0% (HCC) Allergies Active Allergy Reactions Criticality Noted Date Comments Bee Venom 07/24/2014 documented as of this encounter (statuses as of 02/12/2025) Medications EPIPEN 2-GRZEGORZ 0.3 MG/0.3ML IJ SOAJ as needed Act elton BD Pen Needle Short U/F 31G X 8 MM (Insulin Pen Needle)Indication s:Type 2 diabetes mellitus with hemoglobin A1c goal of less than 7.0% (HCC) USE DIRECTED WITH VICTOZA 100 Each 3 022 Active Ozempic (0.25 or 0.5 MG/DOSE) 2 MG/3ML Solution Pen-injector (Semaglutide(0.25 or 0.5MG/DOS)) inject 0.5 milligram subcutaneously every week 9 mL 1 024 Active Gabapentin 100 MG Oral Capsule (Neurontin)Indica tions:Chronic bilateral low back pain with left-sided sciatica 2 three times a day 540 Capsule 1 024 Active Additional Information Patient not taking.Reported on 01/23/2025 Atenolol 50 MG Oral Tablet (Tenormin)Indicat ions:HTN, goal below 130/80 take 1 tablet by mouth once daily 90 Tablet 1 024 Active Atorvastatin Calcium 20 MG Oral Tablet (Lipitor)Indicati ons:Hyperlipidemi a, unspecified hyperlipidemia type take 1 tablet by mouth once daily 90 Tablet 2 024 Active Valsartan 80 MG Oral Tablet (Diovan)Indicatio ns:HTN, goal below 130/80 take 1 tablet by mouth at bedtime 90 Tablet 1 024 Active Jardiance 10 MG Oral Tablet (Empagliflozin) take 1 tablet by mouth daily every morning 90 Tablet 1 025 Active metFORMIN HCl 1000 MG Oral Tablet (Glucophage)Indic ations:Type 2 diabetes mellitus with hemoglobin A1c goal of less than 7.0% (HCC) take 1 tablet by mouth twice a day 180 Tablet 1 025 Active metFORMIN HCl 1000 MG Oral Tablet (Glucophage)Indic ations:Type 2 diabetes mellitus with hemoglobin A1c goal of less than 7.0% (HCC) take 1 tablet by mouth twice a day 180 Tablet 1 023 2024 Discontinued documented as of this encounter (statuses as of 02/12/2025) Active Problems Problem Noted Date Diagnosed Date [...] prostate cancer 12/27/2018 Overview (01/05/2023): Follows with [facility] Anemia of chronic disease 11/03/2016 Status post lumbar spinal fusion 08/13/2015 Type 2 diabetes mellitus wit h hemoglobin A1c goal of less than 7.0% 07/24/2014 Overview (03/14/2016): ICD-10 update of inactive term HTN, goal below 130/80 07/24/2014 Hyperlipidemia 07/24/2014 Displacement of lumbar inter vertebral disc without myelopathy 05/30/2011 documented as of this encounter (statuses as of 02/12/2025) Resolved Problems Problem Noted Date Diagnosed Date [...] as of this encounter (statuses as of 02/12/2025) Immunizations Name Administration Dates Next Due COVID-19 mRNA, LNP-s, No Pre serve, 2-Dose Series ([employer]) 09/24/2021,02/07/2021,01/12/2021 COVID-19, MRNA-LNP, PF, 30 M CG/0.3 mL, 12 YRS AND ABOVE, IM (PFIZER-Comirnaty) 09/09/2024 Pneumococcal Conjugate Vacc, 13 Valent (Prevnar) [...] No 02/05/2024 Does the household have a re lar source of income? (Household - for ages [...] encounter Miscellaneous Notes * Telephone Encounter - Gunjan Julien, [facility] - 02/12/2025 1:28 PM EDTSigned Prescriptions: Disp Refills metFORMIN HCl 1000 MG Oral Tablet (Glucoph*180 Ta*1 Sig: take 1 tablet by mouth twice a dayAuthorizing Provider: AUGIE FREIRE User: GUNJAN JULIEN MA documented in this encounter Plan of Treatment Upcoming Encounters Date Type Department Care Team (Late st Contact Info) Description 03/16/2025 7:00 AM EDT Office Visit [facility] [address] [place] [phone] Augie Freire MD [address] [place] [address] Health Maintenance Due Date Last Done Comments DISCUSS TOBACCO CESSATION (REFER TO SMARTSET #3346) 11/03/2017 11/03/2016 (Discussed) Adult Wellness Visit 06/12/2023 [...] Additional history exists CKD PHOS USE SMARTSET 17374 09/09/202508/20, 02/05/2024, 07/16/2023, Additional history exists Depression Screening 09/09/2025 09/09/2024 Diabetic Foot Exam 09/09/2025 09/09/2024, 0 07/16/2023, 06/12/2022, Additional history exists CKD HGB USE SMARTSET 87193 01/20/202601/20, 09/09/2024, 03/28/2023, Additional history exists DTap/Tdap Vaccines (2 - Td or Tdap) 03/29/2028 03/29/2018 Pneumococcal Vaccine: 50+ Years Completed 02/04/2016, 12/09/2010 Zoster Vaccines Completed 06/14/2022, 11/2021, 08/13/2015 Influenza Vaccine (FLU shot) Completed [...] Not on filedocumented as of this encounter Visit Diagnoses Diagnosis Type 2 diabetes mellitus with hemoglobin A1c goal of less than 7.0% (HCC) documented in this encounter Care Teams Bladder Tier Relationship Specialty Start Date End Date Augie Freire MD [address] [place] [phone] PCP - General Family Medicine 12/12/21 documented as of this encounter
--- OUTSIDE RECORDS SUMMARY | 2025-02-13 20:43 | External Medical Summary | Summary of Care ---
Author Name Unknown Organization [facility] Address [address] [facility] [place] [address] Phone [phone] Care Team Providers Care Repairer And Checker Name Role Phone Calvin Resendez MD Primary Care Provider [phone] [phone] Reason for Visit * Reason Onset Date Comments Advice 01/28/2025 Encounter Details Date Type Department Care Team (Late st Contact Info) Description 01/28/2025 Telephone [facility] [address] [facility] [place] [phone] Calvin Resendez MD 21 [facility] [place] [address] Advice Allergies Active Allergy Reactions Criticality Noted Date Comments Bee Venom 07/24/2014 documented as of this encounter (statuses as of 02/06/2025) Medications EPIPEN 2-GRZEGORZ 0.3 MG/0.3ML IJ SOAJ as needed Act elton BD Pen Needle Short U/F 31G X 8 MM (Insulin Pen Needle)Indications :Type 2 diabetes mellitus with hemoglobin A1c goal of less than 7.0% ([facility]) USE DIRECTED WITH VICTOZA 100 Each 3 [...] as of this encounter (statuses as of 02/06/2025) Active Problems Problem Noted Date Diagnosed Date [...] prostate cancer 12/27/2018 Overview (01/05/2023): Follows with [facility] Anemia of chronic disease 11/03/2016 Status post lumbar spinal fusion 08/13/2015 Type 2 diabetes mellitus wit h hemoglobin A1c goal of less than 7.0% 07/24/2014 Overview (03/14/2016): ICD-10 update of inactive term HTN, goal below 130/80 07/24/2014 Hyperlipidemia 07/24/2014 Displacement of lumbar inter vertebral disc without myelopathy 05/30/2011 documented as of this encounter (statuses as of 02/06/2025) Resolved Problems Problem Noted Date Diagnosed Date [...] as of this encounter (statuses as of 02/06/2025) Immunizations Name Administration Dates Next Due COVID-19 mRNA, LNP-s, No Pre serve, 2-Dose Series ([employer]) 09/24/2021,02/07/2021,01/12/2021 COVID-19, MRNA-LNP, PF, 30 M CG/0.3 [...] No 02/05/2024 Does the household have a [facility] source of income? (Household - for [...] encounter Miscellaneous Notes * Telephone Encounter - Bo Grover MD [...] the pre- op testing she loaded into epic and let them know if the patient is cleared. Surgery is Next Week.Thank You. * Telephone Encounter - Deana Holland OSA - 01/28/2025 10:35 AM EDT Pre op clearance testing was faxed to office, needs reviewed and posted to [employer]. documented in this encounter Plan of Treatment Upcoming Encounters Date Type Department Care Team (Late st Contact Info) Description 03/16/2025 7:00 AM EDT Office Visit [facility] [place] [phone] Calvin Resendez MD [address] [place] [address] Health Maintenance Due Date Last Done Comments DISCUSS TOBACCO CESSATION (REFER TO SMARTSET #3291) 11/03/2017 11/03/2016 (Discussed) Adult Wellness Visit 06/12/2023 [...] Additional history exists CKD PHOS USE SMARTSET 74537 09/09/202508/20, 02/05/2024, 07/16/2023, Additional history exists Depression Screening 09/09/2025 09/09/2024 Diabetic Foot Exam 09/09/2025 09/09/2024, 0 07/16/2023, 06/12/2022, Additional history exists CKD HGB USE SMARTSET 42075 01/20/202601/20, 09/09/2024, 03/28/2023, Additional history exists DTap/Tdap Vaccines (2 - Td or Tdap) 03/29/2028 03/29/2018 Pneumococcal Vaccine: 50+ Years Completed 02/04/2016, 12/09/2010 Zoster Vaccines Completed 06/14/2022, 0211/2021, 08/13/2015 Influenza Vaccine (FLU shot) Completed , [...] filedocumented as of this encounter Care Teams Repairer And Checker Relationship Specialty Start Date End Date Calvin Resendez MD [address] [facility] [place] [phone] PCP - General Family Medicine 12/12/21 documented as of this encounter
--- OUTSIDE RECORDS SUMMARY | 2025-02-13 20:43 | External Medical Summary | Summary of Care ---
Author Name Unknown Organization [facility] Address [address] [place] [facility] [place] [address] Phone [phone] Care Team Providers Care Electrical Systems Engineer Name Role Phone Calvin Resendez MD Primary Care Provider [phone] [phone] Encounter Details Date Type Department Care Team (Late st Contact Info) Description 01/20/2025 Result Scan Unspecified Department <No scans attached> Allergies Active Allergy Reactions Criticality Noted Date Comments Bee Venom 07/24/2014 documented as of this encounter (statuses as of 01/27/2025) Medications EPIPEN 2-GRZEGORZ 0.3 MG/0.3ML IJ SOAJ [...] subcutaneously every week 9 mL 1 05/15/20 24 Active Gabapentin 100 MG Oral Capsule (Neurontin)Indicat ions:Chronic bilateral low back pain with left-sided sciatica 2 three times a day 540 Capsule 1 05/15/20 Active Additional Information Patient not taking.Reported on 01/23/2025 Atenolol 50 MG Oral Tablet (Tenormin)Indicati ons:HTN, goal below 130/80 take 1 tablet by mouth once daily 90 Tablet 1 05/15/20 24 Active Atorvastatin Calcium 20 MG Oral Tablet (Lipitor)Indicatio ns:Hyperlipidemia, unspecified hyperlipidemia type take 1 tablet by mouth once daily 90 Tablet 2 07/15/20 24 Active Valsartan 80 MG Oral Tablet (Diovan)Indication s:HTN, goal below 130/80 take 1 tablet by mouth at bedtime 90 Tablet 1 11/10/20 24 Active Jardiance 10 MG Oral Tablet (Empagliflozin) take 1 tablet by mouth daily every morning 90 Tablet 1 12/07/19 25 Active documented as of this encounter (statuses as of 01/27/2025) Active Problems Problem Noted Date Diagnosed Date [...] prostate cancer 12/27/2018 Overview (01/05/2023): Follows with [facility] Anemia of chronic disease 11/03/2016 Status post lumbar spinal fusion 08/13/2015 Type 2 diabetes mellitus wit h hemoglobin A1c goal of less than 7.0% 07/24/2014 Overview (03/14/2016): ICD-10 update of inactive term HTN, goal below 130/80 07/24/2014 Hyperlipidemia 07/24/2014 Displacement of lumbar inter vertebral disc without myelopathy 05/30/2011 documented as of this encounter (statuses as of 01/27/2025) Resolved Problems Problem Noted Date Diagnosed Date [...] as of this encounter (statuses as of 01/27/2025) Immunizations Name Administration Dates Next Due COVID-19 mRNA, LNP-s, No Pre serve, 2-Dose Series ([employer]) 09/24/2021,02/07/2021,01/12/2021 COVID-19, MRNA-LNP, PF, 30 M CG/0.3 [...] 02/05/2024 Does the household have a re gular source of income? (Household - for ages [...] on file documented as of this encounter Plan of Treatment Upcoming Encounters Date Type Department Care Team (Late st Contact Info) Description 03/16/2025 7:00 AM EDT [facility] [place] [phone] Calvin Resendez MD [address] [place] [phone] Health Maintenance Due Date Last Done Comments DISCUSS TOBACCO CESSATION (REFER TO SMARTSET #4637) 11/03/2017 11/03/2016 (Discussed) Adult Wellness Visit 06/12/2023 06/12/2022 B-12 11/14/2024 11/14/2023, 12/20, 08/28/2019, Additional history exists Albumin/Creatinine Ratio 02/07/2025 024, 01/05/2023, 06/13/2022, Additional history exists COVID-19 Vaccine ( season) 2025 09/09/2024, 09/24/2021, 02/07/2021, Additional history exists GFR 03/10/2025 01/20/2025, 08/20, 02/05/2024, Additional history exists HbA1c 03/10/2025 01/20/2025, 08/20, 02/05/2024, Additional history exists Diabetic Eye Exam 06/16/2025 06/16/2024, , 04/11/2023, Additional history exists CKD HGB USE SMARTSET 59566 09/09/202501/20, 09/09/2024, 03/28/2023, Additional history exists CKD PHOS USE SMARTSET 48182 09/09/202508/20, 02/05/2024, 07/16/2023, Additional history exists Depression Screening 09/09/2025 09/09/2024 Diabetic Foot Exam 09/09/2025 09/09/2024, 0 07/16/2023, 06/12/2022, Additional history exists DTap/Tdap Vaccines (2 - [...] Not on filedocumented as of this encounter Procedures Procedure Name Priority Date/Time Associated Diagnosis Comments EKG SCANNED RESULT 01/20/2025 documented in this encounter Results * EKG SCANNED RESULT (01/20/2025) 01/20/2025 us No Physician Data Unknown EKG Final Result documented in this encounter Care Teams Electrical Systems Engineer Relationship Specialty Start Date End Date Calvin Resendez MD 21 [facility] [place] [phone] PCP - General Family Medicine 12/12/21 documented as of this encounter
--- OUTSIDE RECORDS SUMMARY | 2025-02-13 20:44 | External Medical Summary | Summary of Care ---
Author Name Unknown Organization [facility] Address [address] [facility] [address] Phone [phone] Care Team Providers Care Legal Clerk Name Role Phone Calvin Resendez MD Primary Care Provider [phone] [phone] Reason for Referral * Evaluate & Treat - Unlimited Visits (Within 10 days (routine)) - Authorized Specialty Diagnoses / Procedures Referred By Contac t Referred To Contact Neuro/Ortho Surgery - Spine. / Neurological Surgery Diagnoses Spinal stenosis of lumbar region with neurogenic claudication Calvin Resendez MD [address] [place] [address] Phone: tel: fax: Referral ID Status Reason Start Date Expiration Date Visits Requested Visits Authorized [id number] Authorized Specialty Services Required 11/27/[phone] Question Answer Referral Priority Within 10 days (routine) Where should this appointment be scheduled? [facility] spine region: Back - Thoracic/Lumbar Do you have any recent complete loss of bladder or bowel function? No Encounter Details Date Type Department Care Team (Late st Contact Info) Description 11/27/2024 Telephone [facility] Yennifer Alfonso [address] [place] [phone] Calvin Resendez MD [address] [place] [address] Allergies Active Allergy Reactions Criticality Noted Date Comments Bee Venom 07/24/2014 documented as of this encounter (statuses as of 11/27/2024) Medications EPIPEN 2-GRZEGORZ 0.3 MG/0.3ML IJ SOAJ [...] times a day 540 Capsule 1 05/15/20 24 Active Empagliflozin 10 MG Oral Tablet (Jardiance) Take 1 Tablet by mouth in the morning. 90 Tablet 1 05/15/20 24 Active Atenolol 50 MG Oral Tablet (Tenormin)Indicati ons:HTN, [...] bedtime 90 Tablet 1 11/10/20 24 Active documented as of this encounter (statuses as of 11/27/2024) Active Problems Problem Noted Date Diagnosed Date AAA (abdominal aortic aneurysm) 11/04/2024 Overview (11/04/2024): [...] prostate cancer 12/27/2018 Overview (01/05/2023): Follows with [facility] Anemia of chronic disease 11/03/2016 Status post lumbar spinal fusion 08/13/2015 Type 2 diabetes mellitus wit h hemoglobin A1c goal of less than 7.0% 07/24/2014 Overview (03/14/2016): ICD-10 update of inactive term HTN, goal below 130/80 07/24/2014 Hyperlipidemia 07/24/2014 Displacement of lumbar inter vertebral disc without myelopathy 05/30/2011 documented as of this encounter (statuses as of 11/27/2024) Resolved Problems Problem Noted Date Diagnosed Date [...] as of this encounter (statuses as of 11/27/2024) Immunizations Name Administration Dates Next Due COVID-19 mRNA, LNP-s, No Pre serve, 2-Dose Series ([employer]) 09/24/2021,02/07/2021,01/12/2021 COVID-19, MRNA-LNP, PF, 30 M CG/0.3 mL, 12 YRS AND ABOVE, IM ([facility]) 09/09/2024 Pneumococcal Conjugate Vacc, 13 Valent (Prevnar) [...] ages 0-17 years) Not on file 02/05/2024 Sex and Gender Information Value Date Recorded Sex Assigned at Male 06/12/2022 8:06 AM EDT Legal Sex Male 6:53 AM EST Gender Identity Not on file Sexual Orientation Not on file documented as of this encounter Miscellaneous Notes * Telephone Encounter - Calvin Resendez MD - 11/27/2024 12:13 PM EST Spine referral placed, myg sent to pt documented in this encounter Plan of Treatment Upcoming Encounters Date Type Department Care Team (Late st Contact Info) Description 12/22/2024 7:45 AM EST Office Visit Ophthalmology, [place] [address] [place] [address] Micah Aquino MD [address] [place] [address] 03/16/2025 7:00 AM EDT Office Visit Family [facility], [place] [address] [place] [phone] Calvin Resendez MD [address] [place] [address] Scheduled Referrals Name Type Priority Associated Diagnoses Orde r Schedule SPINE SURGERY REFERRAL OP Referral Within 10 days (routine) Spinal stenosis of lumbar region with neurogenic claudication Ordered: 11/27/2024 Health Maintenance Due Date Last Done Comments DISCUSS TOBACCO CESSATION (REFER TO SMARTSET #3291) 11/03/2017 11/03/2016 (Discussed) Adult Wellness Visit 06/12/2023 06/12/2022 B-12 11/14/2024 11/14/2023, 12/20, 08/28/2019, Additional history exists Albumin/Creatinine Ratio 02/07/20252 024, 01/05/2023, 06/13/2022, Additional history exists GFR 03/10/2025 09/09/2024, 01/17, 07/16/2023, Additional history exists HbA1c 03/10/2025 09/09/2024, 01/17, 07/16/2023, Additional history exists Diabetic Eye Exam 06/16/2025 06/16/2024, , 04/11/2023, Additional history exists CKD HGB USE SMARTSET 68469 09/09/202509/09, 03/28/2023, 01/05/2023, Additional history exists CKD PHOS USE SMARTSET 49197 09/09/202508/20, 02/05/2024, 07/16/2023, Additional history exists Depression Screening 09/09/2025 09/09/2024 Diabetic Foot Exam 09/09/2025 09/09/2024, 0 07/16/2023, 06/12/2022, Additional history exists DTap/Tdap Vaccines (2 - Td or Tdap) 03/29/2028 03/29/2018 Pneumococcal Vaccine: 50+ Years Completed 02/04/2016, 12/09/2010 Zoster Vaccines Completed 06/14/2022, 02/11/2021, 08/13/2015 COVID-19 Vaccine Completed 09/09/2024, 04/2021, 02/07/2021, Additional history exists Influenza Vaccine (FLU shot) Completed , 11/14/2023, [...] as of this encounter Visit Diagnoses Diagnosis Spinal stenosis of lumbar region with neurogenic claudication- Primary Spinal stenosis, lumbar region, with neurogenic claudication documented in this encounter Care Teams Legal Clerk Relationship Specialty Start Date End Date Calvin Resendez MD [address] [place] [address] PCP - General Family Medicine 12/12/21 documented as of this encounter
--- OUTSIDE RECORDS SUMMARY | 2025-02-13 20:44 | External Medical Summary | Summary of Care ---
Author Name Unknown Organization [facility] Address [address] [place] [address] Phone [phone] Care Team Providers Care Clearing Distribution Clerk Name Role Phone Calivn Resendez MD Primary Care Provider [phone] [phone] Reason for Visit * Reason Onset Date Comments Imaging Records Request 12/09/2024 Encounter Details Date Type Department Care Team (Late st Contact Info) Description 12/09/2024 Telephone Radiology Film File [address] [place] [address] Support, Imaging Radiology [address] [place] [address] Imaging Records Request Allergies Active Allergy Reactions Criticality Noted Date Comments Bee Venom 07/24/2014 documented as of this encounter (statuses as of 12/09/2024) Medications EPIPEN 2-GRZEGORZ 0.3 MG/0.3ML IJ SOAJ [...] day 540 Capsule 1 05/15/20 24 Active Atenolol 50 MG [...] as of this encounter (statuses as of 12/09/2024) Active Problems Problem Noted Date Diagnosed Date [...] prostate cancer 12/27/2018 Overview (01/05/2023): Follows with [facility] Anemia of chronic disease 11/03/2016 Status post lumbar spinal fusion 08/13/2015 Type 2 diabetes mellitus wit h hemoglobin A1c goal of less than 7.0% 07/24/2014 Overview (03/14/2016): ICD-10 update of inactive term HTN, goal below 130/80 07/24/2014 Hyperlipidemia 07/24/2014 Displacement of lumbar inter vertebral disc without myelopathy 05/30/2011 documented as of this encounter (statuses as of 12/09/2024) Resolved Problems Problem Noted Date Diagnosed Date [...] as of this encounter (statuses as of 12/09/2024) Immunizations Name Administration Dates Next Due COVID-19 mRNA, LNP-s, No Pre serve, 2-Dose Series (Cinnamon) 09/24/2021,02/07/2021,01/12/2021 COVID-19, MRNA-LNP, PF, 30 M CG/0.3 [...] encounter Miscellaneous Notes * Telephone Encounter - Bulmaro Hickman [employer] Support - 12/09/2024 9:39 AM EST [facility] [place] 11-22-2024 MRI L SPINE, MRI PELVIS images be pushed to theirsystem. [place] Authorization to Release on file. Images pushed to [facility] external connection through [employer] Report(s) faxed to [phone]. documented in this encounter Plan of Treatment Upcoming Encounters Date Type Department Care Team (Late st Contact Info) Description 12/22/2024 7:45 AM EST Office Visit [facility] [place] [address] Micah Aquino MD [place] [address] 03/16/2025 7:00 AM EDT Office Visit Family Practice, [place] [address] [place] [phone] Calvin Resendez MD [address] [place] [address] Health Maintenance Due Date Last Done Comments DISCUSS TOBACCO CESSATION (REFER TO SMARTSET #3291) 11/03/2017 11/03/2016 (Discussed) Adult Wellness Visit 06/12/2023 06/12/2022 B-12 11/14/2024 11/14/2023, 12/20, 08/28/2019, Additional history exists Albumin/Creatinine Ratio 02/07/2025 024, 01/05/2023, 06/13/2022, Additional history exists GFR 03/10/2025 09/09/2024, 01/17, 07/16/2023, Additional history exists HbA1c 03/10/2025 09/09/2024, 01/17, 07/16/2023, Additional history exists Diabetic Eye Exam 06/16/2025 06/16/2024, , 04/11/2023, Additional history exists CKD HGB USE SMARTSET 91572 09/09/202509/09, 03/28/2023, 01/05/2023, Additional history exists CKD PHOS USE SMARTSET 56716 09/09/202508/20, 02/05/2024, 07/16/2023, Additional history exists Depression Screening 09/09/2025 09/09/2024 Diabetic Foot Exam 09/09/2025 09/09/2024, 0 07/16/2023, 06/12/2022, Additional history exists DTap/Tdap Vaccines (2 - Td or Tdap) 03/29/2028 03/29/2018 Pneumococcal Vaccine: 50+ Years Completed 02/04/2016, 12/09/2010 Zoster Vaccines Completed 06/14/2022, 02/0 11/2021, 08/13/2015 COVID-19 Vaccine Completed 09/09/2024, 04/2021, 02/07/2021, [...] filedocumented as of this encounter Care Teams Clearing Distribution Clerk Relationship Specialty Start Date End Date Calvin Resendez MD [address] [place] [address] PCP - General Family Medicine 12/12/21 documented as of this encounter
--- OUTSIDE RECORDS SUMMARY | 2025-02-13 20:44 | External Medical Summary | Summary of Care ---
Author Name Unknown Organization [facility] Address [address] [facility] [place] [address] Phone [phone] Care Team Providers Care Footwear Sales Associate Name Role Phone Calvin Resendez MD Primary Care Provider [phone] Reason for Visit * Reason Comments Physical-Exam Pre-op. Back surgery 02/13. UOC. Encounter Details Date Type Department Care Team (Late st Contact Info) Description 01/23/2025 11:20 AM EST Office Visit [facility] [address] [place] [phone] Juan Francisco Aranda MD [address] [place] [place] [phone] Pre-op evaluation*; Type 2 diabetes mellitus with stage 3a chronic kidney disease, without long-term current use of insulin (HCC); History of fusion of lumbar spine; Lumbar disc disease with radiculopathy; Degeneration of intervertebral disc of lumbar region with discogenic back pain and lower extremity pain; Osteoarthritis of spine with radiculopathy, lumbar region; HTN, goal below 130/80; Hyperlipidemia, unspecified hyperlipidemia type; Pararenal abdominal aortic aneurysm (AAA) without rupture (HCC) Allergies Active Allergy Reactions Criticality Noted Date Comments Bee Venom 07/24/2014 documented as of this encounter (statuses as of 01/24/2025) Medications EPIPEN 2-GRZEGORZ 0.3 MG/0.3ML IJ SOAJ [...] day 540 Capsule 1 05/15/20 24 Active Additional Information Patient not taking.Reported on [...] as of this encounter (statuses as of 01/24/2025) Active Problems Problem Noted Date Diagnosed Date [...] prostate cancer 12/27/2018 Overview (01/05/2023): Follows with [facility] Anemia of chronic disease 11/03/2016 Status post lumbar spinal fusion 08/13/2015 Type 2 diabetes mellitus wit h hemoglobin A1c goal of less than 7.0% 07/24/2014 Overview (03/14/2016): ICD-10 update of inactive term HTN, goal below 130/80 07/24/2014 Hyperlipidemia 07/24/2014 Displacement of lumbar inter vertebral disc without myelopathy 05/30/2011 documented as of this encounter (statuses as of 01/24/2025) Resolved Problems Problem Noted Date Diagnosed Date [...] as of this encounter (statuses as of 01/24/2025) Immunizations Name Administration Dates Next Due COVID-19 mRNA, LNP-s, No Pre serve, 2-Dose Series ([employer]) 09/24/2021,02/07/2021,01/12/2021 COVID-19, MRNA-LNP, PF, 30 M CG/0.3 [...] Tobacco: Some Days Pipe Smokeless Tobacco: Never Tobacco Cessation:Ready to Q uit: No; Counseling Given: Yes Alcohol Use Standard Drinks/Week Comments Not Currently [...] on file documented as of this encounter Last Filed Vital Signs Vital Sign Reading Time Taken Comments Blood Pressure 130/72 01/23/2025 11:18 AM EST Pulse 64 01/23/2025 11:18 AM EST Temperature 35.7 C (96.2 F) 01/23/2025 11:[address] Respiratory Rate - - Oxygen Saturation 96% 01/23/2025 11:18 AM EST Inhaled Oxygen Concentration - - Weight 88.2 kg (194 lb 8 oz) 01/23/2025 11:18 AM EST Height - - Body Mass Index 27.13 09/09/2024 9:41 AM EDT documented in this encounter Progress Notes * Juan Francisco Aranda MD - 01/23/2025 11:21 AM EST Images from the original note were not included. Pre-Operative Medical Evaluation Procedure Information Type of Surgery: Scheduled for hardware removal of L3, L5, decompression of L2, L3, and L5/S1, and instrumentation of L2/S1. Referring Physician / Surgeon: Dr. Esteban at [facility]. Date of procedure: 02/13/2025. History of Present Illness He is an 79 year old with lumbar spinal stenosis who presents for preoperative clearance. He is scheduled for lumbar spine surgery on February [address] [facility], involving hardware removalof L3-L5, decompression of L2-L3 and L5-S1, and instrumentation of L2-S1. He has a history of lumbar fusion and lumbar disc disease with radiculopathy, experiencing persistent left-sided radicular pain despite multiple injections and physical therapy. An MRI in 2022 revealed posterior lumbar ostomyand fusion of L3-L5, with multilevel degenerative changes, most pronounced at L2, L3, L5, and S1, adjacent to the fused segments. There is moderate spinal canal narrowing due to progressive ligamentum flavum thickening and facet arthropathy at L2-L3, and increased degenerative disc disease at L5-[id number] to a prior exam in 2010. He has diabetes, managed with Jardiance 10 mg daily, Ozempic 0.5 mg weekly, and Metformin 1 gram twice daily. His last A1c was 7.5%. Hypertension is controlled with Valsartan 80 mg nightly and Atenolol 50 mg daily. Blood pressure isreported to be under control. He has an abdominal aortic aneurysm, identified on an ultrasound in October 2024, showing aneurysmal dilation of the proximal abdominal aorta with an AP diameter of 3.3 cm and transverse diameter of3.1 cm. The mid and distal aorta measures 2.5 cm and 2.2 cm respectively, with atherosclerotic changes. This condition is being monitored, and Atenolol is part of the management to prevent further damage. He uses a walker to prevent falls due to neuropathy and back issues. He experiences neuropathy, which he attributes to both diabetes and his back condition. He smokes a pipe occasionally but has never smoked cigarettes. No swelling in his legs and no past reactions to anesthesia. Previous blood work in August showed normal kidney function and no anemia. Medical History Problem List: Type 2 diabetes mellitus with stage 3a chronic kidney disease, without long-term current use of insulin ([facility]) (01/23/2025) AAA (abdominal aortic aneurysm) ([facility]) (11/04/2024) Type 2 diabetes mellitus with stage 3a chronic kidney disease, without long-term current use of insulin ([facility]) (02/05/2024) Chronic kidney disease, stage 3a ([facility]) (01/02/2022) Type 2 diabetes mellitus with stage 3 chronic kidney disease, without long-term current use of insulin ([facility]) (12/01/2020) Diabetes mellitus with stage 3 chronic kidney disease ([facility]) (2019) Hypertensive kidney disease with stage 3a chronic kidney disease (07/2020) Spinal stenosis of lumbar region without neurogenic claudication (08/2019) Hypertensive kidney disease with chronic kidney disease stage III ([facility]) (06/24/2019) History of prostate cancer (12/27/2018) Benign hypertensive kidney disease with chronic kidney disease stage I through stage IV, or unspecified(403.10) (03/29/2018) Type 2 diabetes mellitus with stage 3 chronic kidney disease, without long-term current use of insulin ([facility]) (03/29/2018) Anemia of chronic disease (11/03/2016) Kidney disease, chronic, stage III (GFR 30-59 ml/min) ([facility]) (2014) Degenerative disc disease, lumbar (08/13/2015) Status post lumbar spinal fusion (08/13/2015) Sacral back pain (08/13/2015) Lumbago (08/13/2015) Type 2 diabetes mellitus with hemoglobin A1c goal of less than 7.0% ([facility]) (07/24/2014) HTN, goal below 130/80 (07/24/2014) Hyperlipidemia (07/24/2014) Displacement of lumbar intervertebral disc without myelopathy (2010) Current Medications Jardiance 10 MG Oral Tablet (Empagliflozin), take 1 tablet by mouth daily every morning Valsartan 80 MG Oral Tablet (Diovan), 80 mg, Oral, HS Atorvastatin Calcium 20 MG Oral Tablet (Lipitor), take 1 tablet by mouth once daily Atenolol 50 MG Oral Tablet (Tenormin), take 1 tablet by mouth once daily Ozempic (0.25 or 0.5 MG/DOSE) 2 MG/3ML Solution Pen-injector (Semaglutide(0.25 or 0.5MG/DOS)), inject 0.5 milligram subcutaneously every week metFORMIN HCl 1000 MG Oral Tablet (Glucophage), take 1 tablet by mouth twice a day BD Pen Needle Short U/F 31G X 8 MM (Insulin Pen Needle), USE DIRECTED WITH VICTOZA Gabapentin 100 MG Oral Capsule (Neurontin), 2 three times a day (Patient not taking: Reported on 01/23/2025) EPIPEN 2-GRZEGORZ 0.3 MG/0.3ML IJ SOAJ, as needed (Patient not taking: Reported on 01/23/2025) Allergies: Bee venom Past Medical History: has a past medical history of Benign hypertensive kidney disease with chronic kidney disease stage I through stage IV, or unspecified(403.10) (03/29/2018), Cataract, senile, Essential hypertension, benign, INFORMATION, Kidney stones, Mixed hyperlipidemia, Sacral back pain (08/13/2015), and Type II or unspecified type diabetes mellitus without mention of complication, not stated as uncontrolled (2004). Past Surgical History: has a past surgical history that includes information and information. Social History: reports that he has been smoking pipe. He has never used smokeless tobacco. He reports that he doesnot currently use alcohol after a past usage of about 1.0 standard drink of alcohol per week. He reports that he does not use drugs. Family History: family history includes Diabetes in his father; Hypertension in his father; Stroke in his father. Anesthesia History Type of Anesthesia: General Endotracheal and Caudal block Anesthesia reaction: No History of surgical complications: None Personal history of venous thromboembolic disease: No Objective BP 130/72 | Pulse 64 | Temp 96.2 F (35.7 C) (Tympanic) | Wt 194 lb 8 oz (88.2 kg) | SpO2 96% | BMI 27.13 kg/m | BSA 2.1 m Physical Exam Physical Exam Vitals reviewed. Constitutional: General: He is not in acute distress. Appearance: Normal appearance. Comments: Ambulates with the assistance of a Rollator walker HENT: Nose: Nose normal. Eyes: Conjunctiva/sclera: Conjunctivae normal. Neck: Thyroid: No thyroid mass, thyromegaly or thyroid tenderness. Cardiovascular: Pulses: Normal pulses. Heart sounds: Normal heart sounds. No murmur heard. Pulmonary: Effort: Pulmonary effort is normal. No respiratory distress. Breath sounds: Normal breath sounds. Musculoskeletal: Cervical back: Neck supple. Right lower leg: No edema. Left lower leg: No edema. Comments: Lumbar spine with limited ROM. Neurological: General: No focal deficit present. Mental Status: He is alert and oriented to person, place, and time. Mental status is at baseline. Gait: Gait abnormal. Psychiatric: Mood and Affect: Mood normal. Behavior: Behavior normal. Thought Content: Thought content normal. Results LABS A1c: 7.5% Hb: 14.6 (08/2024) Mitochondria: 43 (08/2024) RADIOLOGY Lumbar spine MRI: Posterior lumbar ostomy and fusion of L3-L5, multilevel degenerative change, moderate spinal canal narrowing related to progressive ligamentum flavum thickening and facet arthropathy at L2-L3, increased degenerative disc disease in L5-S1 compared to 2010 (2022) Abdominal aorta ultrasound: Aneurysmal dilation, proximal abdominal aorta with AP diameter of 3.3 cm and transverse diameter of 3.1 cm, mid AP diameter of 2.5 cm, distal AP diameter of 2.2 cm with atherosclerotic change (10/29/2024) Surgical Risk Revised Cardiac Risk Index (RCRI) High-risk type of surgery? 1=Yes History of ischemic heart disease? 0=No History of congestive heart failure? 0=No History of cerebrovascular disease? 0=No Pre-operative treatment with insulin? 0=No Preoperative serum creatinine >2.0 mg/dL? 0=No Revised cardiac index score One Risk Factor- 1.0% (95% CI: 0.5-1.4) Functional and Surgical Risk Assessment Functional status is good (greater than 4 METS). Patient is ave medical risk for the listed procedure. Assessment and Plan Assessment & Plan Preop evaluation -Presently Clinically Stable for Scheduled Surgery. -To call with any changes in present status. -I was not able to obtain medical records (preoperative labs and EKG) despite reaching out to [facility] multiple times. No contraindication to surgery if normal laboratory tests and ECG. ? Lumbar Spinal Stenosis Persistent left-sided radicular pain despite multiple injections and physical therapy. History of lumbar fusion and lumbar disc disease with radiculopathy. Scheduled for hardware removal of L3, L5, decompression of L2, L3, and L5 S1, and instrumentation of L2 S1 on 02/13/[address]eban at [facility]. -Continue current management plan. Type 2 Diabetes Mellitus Controlled on Jardiance 10mg daily, Metformin 1g twice daily, and Ozempic 0.5mg weekly. -Continue current management plan. -Stop Ozempic 1 week before surgery. -Stop Jardiance 3-4 days before surgery. Hypertension Controlled on Valsartan 80mg nightly and Atenolol 50mg daily. -Continue current management plan. Hyperlipidemia Managed with Atorvastatin daily. -Continue current management plan. Abdominal Aortic Aneurysm Noted on ultrasound from 10/29/2024. Atenolol used for management. -Continue current management plan. -Monitor for changes. Neuropathy Likely secondary to diabetes and lumbar spinal stenosis. -Continue current management plan. Follow-up after surgery to assess recovery and reinstate medications as appropriate. Visit Diagnoses and Orders 1. Pre-op evaluation 2. Type 2 diabetes mellitus with stage 3a chronic kidney disease, without long- term current use of insulin (HCC) 3. History of fusion of lumbar spine 4. Lumbar disc disease with radiculopathy 5. Degeneration of intervertebral disc of lumbar region with discogenic back pain and lower extremity pain 6. Osteoarthritis of spine with radiculopathy, lumbar region 7. HTN, goal below 130/80 8. Hyperlipidemia, unspecified hyperlipidemia type 9. Pararenal abdominal aortic aneurysm (AAA) without rupture (HCC) Perioperative medication adjustments and instructions As above. Text in this note was generated using an [employer] documentation service. I discussed the use of a device to record and summarize our discussion today. All persons present during the encounter consented to its use. Juan Francisco Alvarado MD [facility] [address] [place] [id number] documented in this encounter Nursing Notes * Zulema Fang MED ASSIST - 01/23/2025 11:14 AM EST Chief Complaint Patient presents with Physical-Exam Pre-op. Back surgery 02/13. UOC. Pt had pre-op testing done at [facility] on Sunday, including labs, EKG and chest X-ray documented in this encounter Plan of Treatment Upcoming Encounters Date Type Department Care Team (Late st Contact Info) Description 03/16/2025 7:00 AM EDT Office Visit [facility] [address] [phone] Calvin Resendez MD [address] [place] [place] [address] Health Maintenance Due Date Last Done Comments DISCUSS TOBACCO CESSATION (REFER TO SMARTSET #[id number]) 11/03/2017 11/03/2016 (Discussed) Adult Wellness Visit 06/12/2023 06/12/2022 B-12 11/14/2024 11/14/2023, 12/20, 08/28/2019, Additional history exists Albumin/Creatinine Ratio 02/07/2025 024, 01/05/2023, 06/13/2022, Additional history exists COVID-19 Vaccine ( season) 2025 09/09/2024, 09/24/2021, 02/07/2021, Additional history exists GFR 03/10/2025 09/09/2024, 01/17, 07/16/2023, Additional history exists HbA1c 03/10/2025 09/09/2024, 01/17, 07/16/2023, Additional history exists Diabetic Eye Exam 06/16/2025 06/16/2024, , 04/11/2023, Additional history exists CKD HGB USE SMARTSET 42462 09/09/202509/09, 03/28/2023, 01/05/2023, Additional history exists CKD PHOS USE SMARTSET 65246 09/09/202508/20, 02/05/2024, 07/16/2023, Additional history exists Depression [...] as of this encounter Visit Diagnoses Diagnosis Pre-op evaluation- Primary Preoperative examination, unspecified Type 2 diabetes mellitus with stage 3a chronic kidney disease, without long-term current use of insulin (HCC) History of fusion of lumbar spine Lumbar disc disease with radiculopathy Displacement of lumbar intervertebral disc without myelopathy Degeneration of intervertebral disc of lumbar region with discogenic back pain and lower extremity pain Osteoarthritis of spine with radiculopathy, lumbar region HTN, goal below 130/80 Unspecified essential hypertension Hyperlipidemia, unspecified hyperlipidemia type Pararenal abdominal aortic aneurysm (AAA) without rupture (HCC) documented in this encounter Care Teams Footwear Sales Associate Relationship Specialty Start Date End Date Calvin Resendez MD [address] [place] [phone] PCP - General Family Medicine 12/12/21 documented as of this encounter"
--- OUTSIDE RECORDS SUMMARY | 2025-02-13 20:44 | External Medical Summary | Summary of Care ---
Author Name Unknown Organization [facility] Address [address] [facility] [place] [address] Phone [phone] Care Team Providers Care Skilled Nursing Facilities Professional Name Role Phone Calvin Resendez MD Primary Care Provider [phone] Encounter Details Date Type Department Care Team (Late st Contact Info) Description 01/27/2025 Orders Only [facility] [address] [facility] [place] [address] Calvin Resendez MD [address] [place] [address] Allergies Active Allergy Reactions Criticality Noted Date [...] prostate cancer 12/27/2018 Overview (01/05/2023): Follows with [facility] Anemia of chronic disease 11/03/2016 Status [...] mRNA, LNP-s, No Pre serve, 2-Dose Series ([employer]) 09/24/2021,02/07/2021,01/12/2021 COVID-19, MRNA-LNP, PF, 30 M CG/0.3 mL, 12 YRS AND ABOVE, IM ([employer]) 09/09/2024 Pneumococcal Conjugate Vacc, 13 Valent (Prevnar) [...] Description 03/16/2025 7:00 AM EDT Office Visit [facility] [address] [place] [phone] Calvin Resendez MD [address] [phone] Health Maintenance Due Date Last Done Comments DISCUSS TOBACCO CESSATION (REFER TO SMARTSET #[id number]) 11/03/2017 11/03/2016 (Discussed) Adult Wellness Visit 06/12/2023 [...] Additional history exists CKD HGB USE SMARTSET 92748 09/09/202501/20, 09/09/2024, 03/28/2023, Additional history exists CKD PHOS USE SMARTSET 50244 09/09/202508/20, 02/05/2024, 07/16/2023, Additional history exists Depression Screening 09/09/2025 09/09/2024 Diabetic Foot Exam 09/09/2025 09/09/2024, 0 07/16/2023, 06/12/2022, Additional history exists DTap/Tdap Vaccines (2 - Td or Tdap) 03/29/2028 03/29/2018 Pneumococcal Vaccine: 50+ Years Completed 02/04/2016, 12/09/2010 Zoster Vaccines Completed 06/14/2022, 02/11/2021, 08/13/2015 Influenza Vaccine (FLU shot) Completed , [...] Procedure Name Priority Date/Time Associated Diagnosis Comments XR CHEST 2 VIEWS Routine 01/20/2025 CHEMISTRY-OUTSIDE Routine 01/20/2025 documented in this encounter Results * (ABNORMAL) CHEMISTRY-OUTSIDE (01/20/2025) Not all results display below - see scan for full detail OUTSIDE LAB (SEE SCANNED REPORT) Comment:SEE SCAN - HA1C, CBC D, BMP, PTINR , UA CREATININE 1.26 0.6 - 1.4 MG/DL OUTSIDE LAB (SEE SCANNED REPORT) EGFR 57.30 ML/MIN OUTSIDE LA B (SEE SCANNED REPORT) POTASSIUM 5.0 3.5 - 5.1 MMOL/L OUTSIDE LAB (SEE SCANNED REPORT) GLUCOSE 168(A) 70 - 99 MG/DL OUTSIDE LAB (SEE SCANNED REPORT) HOURS FASTING OUTSID E LAB (SEE SCANNED REPORT) TRIGLYCERIDES-OUT SIDE LAB OUTSIDE LAB (SEE SCANNED REPORT) CHOLESTEROL-OUTSI DE LAB OUTSIDE LAB (SEE SCANNED REPORT) HDL-OUTSIDE LAB OUTS BARRY LAB (SEE SCANNED REPORT) CHOL/HDL RATIO-OUTSIDE LAB OUTSIDE LA B (SEE SCANNED REPORT) LDL (CALCULATED)-OUTS BARRY LAB OUTSIDE LAB (SEE SCANNED REPORT) LDL (DIRECT MEASURE)-OUTSIDE LAB OUTSIDE LAB (SEE SCANNED REPORT) HEMOGLOBIN, [id number] LAB 7.5(A) 4.5 - 5.6 % OUTSIDE LAB (SEE SCANNED REPORT) PHOSPHORUS-OUTSID E LAB OUTSIDE LAB (SEE SCANNED REPORT) PTH-OUTSIDE LAB OUTS BARRY LAB (SEE SCANNED REPORT) MICROALBUMIN RATIO-OUTSIDE LAB OUTSIDE LA B (SEE SCANNED REPORT) PROTEIN, UA-OUTSIDE LAB OUTSIDE LAB (SEE SCANNED REPORT) HGB 13.4(A) 14.0 - 18.0 G/DL OUTSIDE LAB (SEE SCANNED REPORT) 01/20/2025 us Silver Esteban DO LABORATORY Fin al Result OUTSIDE LAB (SEE SCANNED REPORT) * XR CHEST 2 VIEWS (01/20/2025) Anatomical Region Laterality Modality Chest Other 01/20/2025 us Silver Esteban DO RADIOLOGY (RAD GENE RAL) Final Result documented in this encounter Care Teams Skilled Nursing Facilities Professional Relationship Specialty Start Date End Date Calvin Resendez MD [address] [facility] [place] [phone] PCP - General Family Medicine 12/12/21 documented as of this encounter
--- OUTSIDE RECORDS SUMMARY | 2025-02-13 20:44 | External Medical Summary | Summary of Care ---
Author Name Unknown Organization [facility] Address [address] [facility] [address] Phone [phone] Care Team Providers Care Mediator Name Role Phone Calvin Resendez MD Primary Care Provider +1 [phone] Reason for Referral * Evaluate & Treat - Unlimited Visits (Within 10 days (routine)) - Authorized Specialty Diagnoses / Procedures Referred By Contac t Referred To Contact Neuro/Ortho Surgery - Spine. / Neurological Surgery Diagnoses Spinal stenosis of lumbar region with neurogenic claudication Calvin Resendez MD [address] [address] Phone: tel: fax: Referral ID Status Reason Start Date Expiration Date Visits Requested Visits Authorized [id number] Authorized Specialty Services Required 11/27/[phone] Question Answer Referral Priority Within 10 days (routine) Where should this appointment be scheduled? [facility] spine region: Back - Thoracic/Lumbar Do you have any recent complete loss of bladder or bowel function? No Encounter Details Date Type Department Care Team (Late st Contact Info) Description 11/27/2024 Telephone [facility] Yennifer Alfonso [address] [phone] Calvin Resendez MD [address] [address] Allergies Active Allergy Reactions Criticality Noted Date Comments Bee Venom 07/24/2014 documented as of this encounter (statuses as of 11/28/2024) Medications EPIPEN 2-GRZEGORZ 0.3 MG/0.3ML IJ SOAJ [...] as of this encounter (statuses as of 11/28/2024) Active Problems Problem Noted Date Diagnosed Date [...] prostate cancer 12/27/2018 Overview (01/05/2023): Follows with [facility] Anemia of chronic disease 11/03/2016 Status post lumbar spinal fusion 08/13/2015 Type 2 diabetes mellitus wit h hemoglobin A1c goal of less than 7.0% 07/24/2014 Overview (03/14/2016): ICD-10 update of inactive term HTN, goal below 130/80 07/24/2014 Hyperlipidemia 07/24/2014 Displacement of lumbar inter vertebral disc without myelopathy 05/30/2011 documented as of this encounter (statuses as of 11/28/2024) Resolved Problems Problem Noted Date Diagnosed Date [...] as of this encounter (statuses as of 11/28/2024) Immunizations Name Administration Dates Next Due COVID-19 mRNA, LNP-s, No Pre serve, 2-Dose Series ([employer]) 09/24/2021,02/07/2021,01/12/2021 COVID-19, MRNA-LNP, PF, 30 M CG/0.3 mL, 12 YRS AND ABOVE, IM ([employer]) 09/09/2024 Pneumococcal Conjugate Vacc, 13 Valent (Prevnar) [...] encounter Miscellaneous Notes * Telephone Encounter - Louise Leone OSA - 11/28/2024 7:22 AM EST Lmom for pt to call and schedule with a spine surgeon 2nd attempt * Telephone Encounter - Calvin Resendez MD - 11/27/2024 12:13 PM EST Spine referral placed, myg sent to pt documented in this encounter Plan of Treatment Upcoming Encounters Date Type Department Care Team (Late st Contact Info) Description 12/22/2024 7:45 AM EST Office Visit Ophthalmology, [place] [address] [address] Micah Aquino MD [address] [address] 03/16/2025 7:00 AM EDT Office Visit Family [facility], [place] [address] [phone] Calvin Resendez MD [address] [address] Scheduled Referrals Name Type Priority Associated Diagnoses Orde r Schedule SPINE SURGERY REFERRAL OP Referral Within 10 days (routine) Spinal stenosis of lumbar region with neurogenic claudication Ordered: 11/27/2024 Health Maintenance Due Date Last Done Comments DISCUSS TOBACCO CESSATION (REFER TO SMARTSET #7616) 11/03/2017 11/03/2016 (Discussed) Adult Wellness Visit 06/12/2023 06/12/2022 B-12 11/14/2024 11/14/2023, 12/20, 08/28/2019, Additional history exists Albumin/Creatinine Ratio 02/07/20252 024, 01/05/2023, 06/13/2022, Additional history exists GFR 03/10/2025 09/09/2024, 01/17, 07/16/2023, Additional history exists HbA1c 03/10/2025 09/09/2024, 01/17, 07/16/2023, Additional history exists Diabetic Eye Exam 06/16/2025 06/16/2024, , 04/11/2023, Additional history exists CKD HGB USE SMARTSET 57286 09/09/202509/09, 03/28/2023, 01/05/2023, Additional history exists CKD PHOS USE SMARTSET 32870 09/09/202508/20, 02/05/2024, 07/16/2023, Additional history exists Depression Screening 09/09/2025 09/09/2024 Diabetic Foot Exam 09/09/2025 09/09/2024, 0 07/16/2023, 06/12/2022, Additional history exists DTap/Tdap Vaccines (2 - Td or Tdap) 03/29/2028 03/29/2018 Pneumococcal Vaccine: 50+ Years Completed 02/04/2016, 12/09/2010 Zoster Vaccines Completed 06/14/2022, 11/2021, 08/13/2015 COVID-19 Vaccine Completed 09/09/2024, 04/2021, [...] claudication documented in this encounter Care Teams Mediator Relationship Specialty Start Date End Date Calvin Resendez MD [address] [address] PCP - General Family Medicine 12/12/21 documented as of this encounter
--- OUTSIDE RECORDS SUMMARY | 2025-02-13 20:44 | External Medical Summary | Summary of Care ---
Author Name Unknown Organization [facility] [address] [facility] [address] Phone [phone] Care Team Providers Care Blade Sharpener Name Role Phone Calvin Resendez MD Primary Care Provider [phone] [phone] Reason for Referral * Evaluate & Treat - Unlimited Visits (Within 10 days (routine)) - Authorized Specialty Diagnoses / Procedures Referred By Contac t Referred To Contact Neuro/Ortho Surgery - Spine. / Neurological Surgery Diagnoses Spinal stenosis of lumbar region with neurogenic claudication Calvin Resendez MD [address] [address] Phone: tel: fax: Referral ID Status Reason Start Date Expiration Date Visits Requested Visits Authorized [id number] Authorized Specialty Services Required 11/27/[phone] Question Answer Referral Priority Within 10 days (routine) Where should this appointment be scheduled? [facility]: Back - Thoracic/Lumbar Do you have any recent complete loss of bladder or bowel function? No Encounter Details Date Type Department Care Team (Late st Contact Info) Description 11/27/2024 Telephone [facility] Yennifer Alfonso [address] [phone] Calvin Resendez MD [address] [address] Allergies Active Allergy Reactions Criticality Noted Date [...] prostate cancer 12/27/2018 Overview (01/05/2023): Follows with [facility] Anemia of chronic disease 11/03/2016 Status [...] mRNA, LNP-s, No Pre serve, 2-Dose Series (Vers[employer]) 09/24/2021,02/07/2021,01/12/2021 COVID-19, MRNA-LNP, PF, 30 M CG/0.3 mL, 12 YRS AND ABOVE, IM ([facility]) 09/09/2024 Pneumococcal Conjugate Vacc, 13 Valent (Prevnar) [...] Miscellaneous Notes * Telephone Encounter - Louise eLone OSA - 11/28/2024 7:22 AM EST Lmom [...] 12/22/2024 7:45 AM EST Office Visit Ophthalmology, [place] [address] [address] Micah Aquino MD [address] [address] 03/16/2025 7:00 AM EDT Office Visit Family [facility], [place] [address] [phone] Calvin Resendez MD [address] [address] Scheduled Referrals Name Type Priority Associated Diagnoses Orde r Schedule SPINE SURGERY REFERRAL OP Referral Within 10 days (routine) Spinal stenosis of lumbar region with neurogenic claudication Ordered: 11/27/2024 Health Maintenance Due Date Last Done Comments DISCUSS TOBACCO CESSATION (REFER TO SMARTSET #[id number]) 11/03/2017 11/03/2016 (Discussed) Adult Wellness Visit 06/12/2023 06/12/2022 B-12 11/14/2024 11/14/2023, 12/20, 08/28/2019, Additional history exists Albumin/Creatinine Ratio 02/07/20252 024, 01/05/2023, 06/13/2022, Additional history exists GFR 03/10/2025 09/09/2024, 01/17, 07/16/2023, Additional history exists HbA1c 03/10/2025 09/09/2024, 01/17, 07/16/2023, Additional history exists Diabetic Eye Exam 06/16/2025 06/16/2024, , 04/11/2023, Additional history exists CKD HGB USE SMARTSET 90376 09/09/202509/09, 03/28/2023, 01/05/2023, Additional history exists CKD PHOS USE SMARTSET 79173 09/09/202508/20, 02/05/2024, 07/16/2023, Additional history exists Depression [...] claudication documented in this encounter Care Teams Blade Sharpener Relationship Specialty Start Date End Date Calvin Resendez MD [address] [address] PCP - General Family Medicine 12/12/21 documented as of this encounter
--- OUTSIDE RECORDS SUMMARY | 2025-02-13 20:44 | External Medical Summary | Summary of Care ---
Author Name Unknown Organization [facility] Address [address] [facility] [place] [address] Phone [phone] Care Team Providers Care Audio Visual Aids Director Name Role Phone Calvin Resendez MD Primary Care Provider [phone] [phone] Reason for Referral * Evaluate & Treat - Unlimited Visits (Within 10 days (routine)) - Authorized Specialty Diagnoses / Procedures Referred By Contac t Referred To Contact Neuro/Ortho Surgery - Spine. / Neurological Surgery Diagnoses Spinal stenosis of lumbar region with neurogenic claudication Calvin Resendez MD [address] [address] Phone: tel: fax: Referral ID Status Reason Start Date Expiration Date Visits Requested Visits Authorized [id number] Authorized Specialty Services Required 11/27/[phone] Question Answer Referral Priority Within 10 days (routine) Where should this appointment be scheduled? [facility] region: Back - Thoracic/Lumbar Do you have any recent complete loss of bladder or bowel function? No Reason for Visit * Reason Onset Date Comments Other 11/27/2024 Encounter Details Date Type Department Care Team (Late st Contact Info) Description 11/27/2024 Telephone [facility] Yennifer Alfonso [address] [phone] Calvin Resendez MD [address] [address] Other Allergies Active Allergy Reactions Criticality Noted Date [...] prostate cancer 12/27/2018 Overview (01/05/2023): Follows with [facility] Anemia of chronic disease 11/03/2016 Status [...] mRNA, LNP-s, No Pre serve, 2-Dose Series ([employer]) 09/24/2021,02/07/2021,01/12/2021 COVID-19, MRNA-LNP, PF, 30 M CG/0.3 [...] encounter Miscellaneous Notes * Telephone Encounter - Jolene Aponte OSA - 11/28/2024 10:43 AM EST pt wishes to go back to Dr Kirill John in [place] fax# [phone] please fax order Ty * Telephone Encounter - Louise Leone OSA [...] Description 12/22/2024 7:45 AM EST Office Visit [facility], [place] [address] [address] Micah Aquino MD [address] [address] 03/16/2025 7:00 AM EDT Office Visit [facility] [address] [phone] Calvin Resendez MD [address] [address] Scheduled Referrals Name Type Priority Associated Diagnoses Orde r Schedule SPINE SURGERY REFERRAL OP Referral Within 10 days (routine) Spinal stenosis of lumbar region with neurogenic claudication Ordered: 11/27/2024 Health Maintenance Due Date Last Done Comments DISCUSS TOBACCO CESSATION (REFER TO SMARTSET #8725) 11/03/2017 11/03/2016 (Discussed) Adult Wellness Visit 06/12/2023 06/12/2022 B-12 11/14/2024 11/14/2023, 12/20, 08/28/2019, Additional history exists Albumin/Creatinine Ratio 02/07/2025 024, 01/05/2023, 06/13/2022, Additional history exists GFR 03/10/2025 09/09/2024, 01/17, 07/16/2023, Additional history exists HbA1c 03/10/2025 09/09/2024, 01/17, 07/16/2023, Additional history exists Diabetic Eye Exam 06/16/2025 06/16/2024, , 04/11/2023, Additional history exists CKD HGB USE SMARTSET 19128 09/09/202509/09, 03/28/2023, 01/05/2023, Additional history exists CKD PHOS USE SMARTSET 98357 09/09/202508/20, 02/05/2024, 07/16/2023, Additional history exists Depression [...] claudication documented in this encounter Care Teams Audio Visual Aids Director Relationship Specialty Start Date End Date Calvin Resendez MD [address] [address] PCP - General Family Medicine 12/12/21 documented as of this encounter
--- OUTSIDE RECORDS SUMMARY | 2025-02-13 20:44 | External Medical Summary | Summary of Care ---
Author Name Unknown Organization [facility] Address [address] [facility] [address] Phone [phone] Care Team Providers Care Patient Sitter Name Role Phone Calvin Resendez MD Primary Care Provider [phone] [phone] Reason for Referral * Precert (Within 10 days (routine)) - Authorized Specialty Diagnoses / Procedures Referred By Contac t Referred To Contact Radiology Diagnoses Status post lumbar spinal fusion Spinal stenosis of lumbar region with neurogenic 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 Procedures MRI L SPINE W WO CONTRAST Calvin Resendez MD [address] [place] [address] Phone: tel: fax: Referral ID Status Reason Start Date Expiration Date V isits Requested Visits Authorized [id number] Authorized 11/03/[phone] Reason for Visit * Precert (Within 10 days (routine)) - Authorized Specialty Diagnoses / Procedures Referred By Contac t Referred To Contact Radiology Diagnoses Status post lumbar spinal fusion Spinal stenosis of lumbar region with neurogenic 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 Procedures MRI L SPINE W WO CONTRAST Calvin Resendez MD [address] [place] [address] Phone: tel: fax: Referral ID Status Reason Start Date Expiration Date V isits Requested Visits Authorized [id number] Authorized 11/03/[phone] Encounter Details Date Type Department Care Team (Latest Contact Info) Description 11/22/2024 11:51 AM EST - 11/22/2024 11:59 PM EST Hospital Encounter Radiology, [facility] [address] [place] [address] Arrived Discharge Disposition: Home - Self Care Allergies Active Allergy Reactions Criticality Noted Date Comments Bee Venom 07/24/2014 documented as of this encounter (statuses as of 11/23/2024) Medications EPIPEN 2-GRZEGORZ 0.3 MG/0.3ML IJ SOAJ [...] as of this encounter (statuses as of 11/23/2024) Active Problems Problem Noted Date Diagnosed Date [...] prostate cancer 12/27/2018 Overview (01/05/2023): Follows with [facility] Anemia of chronic disease 11/03/2016 Status post lumbar spinal fusion 08/13/2015 Type 2 diabetes mellitus wit h hemoglobin A1c goal of less than 7.0% 07/24/2014 Overview (03/14/2016): ICD-10 update of inactive term HTN, goal below 130/80 07/24/2014 Hyperlipidemia 07/24/2014 Displacement of lumbar inter vertebral disc without myelopathy 05/30/2011 documented as of this encounter (statuses as of 11/23/2024) Resolved Problems Problem Noted Date Diagnosed Date [...] as of this encounter (statuses as of 11/23/2024) Immunizations Name Administration Dates Next Due COVID-19 mRNA, LNP-s, No Pre serve, 2-Dose Series ([employer]) 09/24/2021,02/07/2021,01/12/2021 COVID-19, MRNA-LNP, PF, 30 M CG/0.3 [...] 12/22/2024 7:45 AM EST Office Visit Ophthalmology, [place] [address] [address] Micah Aquino MD [address] [address] 03/16/2025 7:00 AM EDT Office Visit Family Practice, [place] [address] [phone] Calvin Resendez MD [address] [address] Pending Results Name Type Priority Associated Diagnoses Date /Time MRI L SPINE W WO CONTRAST Medical Imaging Routine Status post lumbar spinal fusion Spinal stenosis of lumbar region with neurogenic 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 11/22/2024 1:24 PM EST Scheduled Orders Name Type Priority Associated Diagnoses Orde r Schedule MRI L SPINE W WO CONTRAST Medical Imaging Routine Status post lumbar spinal fusion Spinal stenosis of lumbar region with neurogenic 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 1 Occurrences starting 11/22/2024 until 11/22/2024 Health Maintenance Due Date Last Done Comments [...] Additional history exists CKD HGB USE SMARTSET 50624 09/09/202509/09, 03/28/2023, 01/05/2023, Additional history exists CKD PHOS USE SMARTSET 51036 09/09/202508/20, 02/05/2024, 07/16/2023, Additional history exists Depression [...] as of this encounter Visit Diagnoses Diagnosis Status post lumbar spinal fusion Arthrodesis status Spinal stenosis of lumbar region with neurogenic claudication Spinal stenosis, lumbar region, with neurogenic 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 documented in this encounter Care Teams Patient Sitter Relationship Specialty Start Date End Date Calvin Resendez MD [address] [address] PCP - General Family Medicine 12/12/21 documented as of this encounter
--- OUTSIDE RECORDS SUMMARY | 2025-02-13 20:44 | External Medical Summary | Summary of Care ---
Author Name Unknown Organization [facility] Address [address] [facility] [address] Phone [phone] Care Team Providers Care Verifying Machine Operator Name Role Phone Calvin Resendez MD Primary Care Provider [phone] [phone] Encounter Details Date Type Department Care Team (Late st Contact Info) Description 12/11/2024 Population Health External Data Unspecified Department Allergies Active Allergy Reactions Criticality Noted Date Comments Bee Venom 07/24/2014 documented as of this encounter (statuses as of 12/11/2024) Medications EPIPEN 2-GRZEGORZ 0.3 MG/0.3ML IJ SOAJ [...] as of this encounter (statuses as of 12/11/2024) Active Problems Problem Noted Date Diagnosed Date [...] as of this encounter (statuses as of 12/11/2024) Resolved Problems Problem Noted Date Diagnosed Date [...] as of this encounter (statuses as of 12/11/2024) Immunizations Name Administration Dates Next Due COVID-19 mRNA, LNP-s, No Pre serve, 2-Dose Series ([employer]) 09/24/2021,02/07/2021,01/12/2021 COVID-19, MRNA-LNP, PF, 30 M CG/0.3 mL, 12 YRS AND ABOVE, IM [facility] 09/09/2024 Pneumococcal Conjugate Vacc, 13 Valent (Prevnar) [...] 18 years and over) Not on file 03/19/202 4 Are you (or your family) kian eless [...] 12/22/2024 7:45 AM EST Office Visit Ophthalmology, [place] [address] [place] [address] Micah Aquino MD [address] [address] 03/16/2025 7:00 AM EDT Office Visit Family [facility], [place] [address] [phone] Calvin Resendez MD [address] [address] Health Maintenance Due Date Last Done Comments [...] Additional history exists CKD HGB USE SMARTSET 19544 09/09/202509/09, 03/28/2023, 01/05/2023, Additional history exists CKD PHOS USE SMARTSET 37018 09/09/202508/20, 02/05/2024, 07/16/2023, Additional history exists Depression Screening 09/09/2025 09/09/2024 Diabetic Foot Exam 09/09/2025 09/09/2024, 0 07/16/2023, 06/12/2022, Additional history exists DTap/Tdap Vaccines (2 - Td or Tdap) 03/29/2028 03/29/2018 Pneumococcal Vaccine: 50+ Years Completed 02/04/2016, 12/09/2010 Zoster Vaccines Completed 06/14/2022, /11/2021, 08/13/2015 COVID-19 Vaccine Completed 09/09/2024, 04/2021, 02/07/2021, [...] filedocumented as of this encounter Care Teams Verifying Machine Operator Relationship Specialty Start Date End Date Calvin Resendez MD [address] [address] PCP - General Family Medicine 12/12/21 documented as of this encounter
--- OUTSIDE RECORDS SUMMARY | 2025-02-13 20:44 | External Medical Summary | Summary of Care ---
Author Name Unknown Organization [facility] Address [address] [facility] [place] [address] Phone [phone] Care Team Providers Care Supervisor Matrix Name Role Phone Augie Freire MD Primary Care Provider +1 [phone] Reason for Visit * Reason Comments eRx-Medication Refill Encounter Details Date Type Department Care Team (Late st Contact Info) Description 12/07/[address] [facility] [address] [facility] [place] [address] Augie Freire MD [address] [facility] [place] [address] Allergies Active Allergy Reactions Criticality Noted Date Comments Bee Venom 07/24/2014 documented as of this encounter (statuses as of 12/07/2024) Medications EPIPEN 2-GRZEGORZ 0.3 MG/0.3ML IJ SOAJ as needed Act elton BD Pen Needle Short U/F 31G X 8 MM (Insulin Pen Needle)Indication s:Type 2 diabetes mellitus with hemoglobin A1c goal of less than 7.0% ([facility]) USE DIRECTED WITH VICTOZA 100 Each 3 022 Active metFORMIN HCl 1000 MG Oral Tablet (Glucophage)Indic ations:Type 2 diabetes mellitus with hemoglobin A1c goal of less than 7.0% (HCC) take 1 tablet by mouth twice a day 180 Tablet 1 023 Active Ozempic (0.25 or 0.5 MG/DOSE) 2 MG/3ML Solution Pen-injector (Semaglutide(0.25 or 0.5MG/DOS)) inject 0.5 milligram subcutaneously every week 9 mL 1 024 Active Gabapentin 100 MG Oral Capsule (Neurontin)Indica tions:Chronic bilateral low back pain with left-sided sciatica 2 three times a day 540 Capsule 1 024 Active Atenolol 50 MG Oral Tablet (Tenormin)Indicat ions:HTN, [...] every morning 90 Tablet 1 025 Active Empagliflozin 10 MG Oral Tablet (Jardiance) Take 1 Tablet by mouth in the morning. 90 Tablet 1 024 2024 Discontinued documented as of this encounter (statuses as of 12/07/2024) Active Problems Problem Noted Date Diagnosed Date [...] prostate cancer 12/27/2018 Overview (01/05/2023): Follows with [facility] Anemia of chronic disease 11/03/2016 Status post lumbar spinal fusion 08/13/2015 Type 2 diabetes mellitus wit h hemoglobin A1c goal of less than 7.0% 07/24/2014 Overview (03/14/2016): ICD-10 update of inactive term HTN, goal below 130/80 07/24/2014 Hyperlipidemia 07/24/2014 Displacement of lumbar inter vertebral disc without myelopathy 05/30/2011 documented as of this encounter (statuses as of 12/07/2024) Resolved Problems Problem Noted Date Diagnosed Date [...] as of this encounter (statuses as of 12/07/2024) Immunizations Name Administration Dates Next Due COVID-19 mRNA, LNP-s, No Pre serve, 2-Dose Series ([employer]) 09/24/2021,02/07/2021,01/12/2021 COVID-19, MRNA-LNP, PF, 30 M CG/0.3 mL, 12 YRS AND ABOVE, IM [facility] 09/09/2024 Pneumococcal Conjugate Vacc, 13 Valent (Prevnar) [...] No 02/05/2024 Does the household have a zuni hospitallar source of income? (Household - for ages [...] encounter Miscellaneous Notes * Telephone Encounter - April Juárez RPh - 12/07/2024 6:00 PM ESTSigned Prescriptions: Disp Refills Jardiance 10 MG Oral Tablet (Empagliflozin)90 Tab*1 Sig: take 1tablet by mouth daily every morningAuthorizing Provider: AUGIE FREIRE User: APRIL JUÁREZ documented in this encounter Plan of Treatment Upcoming Encounters Date Type Department Care Team (Late st Contact Info) Description 12/22/2024 7:45 AM EST Office Visit Ophthalmology, [place] [address] [address] Micah Aquino MD [address] [address] 03/16/2025 7:00 AM EDT Office Visit Family Practice, [place] [address] [phone] Augie Freire MD [address] [place] [place] [address] Health Maintenance Due Date Last Done Comments [...] Additional history exists CKD HGB USE SMARTSET 05108 09/09/202509/09, 03/28/2023, 01/05/2023, Additional history exists CKD PHOS USE SMARTSET 89286 09/09/202508/20, 02/05/2024, 07/16/2023, Additional history exists Depression [...] filedocumented as of this encounter Care Teams Supervisor Matrix Relationship Specialty Start Date End Date Augie Freire MD [address] [place] [address] PCP - General Family Medicine 12/12/21 documented as of this encounter
--- OUTSIDE RECORDS SUMMARY | 2025-02-13 20:44 | External Medical Summary | Summary of Care ---
Author Name Unknown Organization [facility] [address] [facility] [facility] [facility] [address] Phone [phone] Care Team Providers Care Dental Hygiene Teacher Name Role Phone Calvin Resendez MD Primary Care Provider [phone] [phone] Reason for Referral * Evaluate & Treat - Unlimited Visits (Within 10 days (routine)) - Authorized Specialty Diagnoses / Procedures Referred By Contac t Referred To Contact Neuro/Ortho Surgery - Spine. / Neurological Surgery Diagnoses Spinal stenosis of lumbar region with neurogenic claudication Calvin Resendez MD [address] [place] [address] Phone: tel: fax: Referral ID Status Reason Start Date Expiration Date Visits Requested Visits Authorized [id number] Authorized Specialty Services Required 11/27/[phone] Question Answer Referral Priority Within 10 days (routine) Where should this appointment be scheduled? [facility] spine region: Back - Thoracic/Lumbar Do you have any recent complete loss of bladder or bowel function? No Encounter Details Date Type Department Care Team (Late st Contact Info) Description 11/27/2024 Telephone [facility] Yennifer Alfonso [address] [place] [phone] Calvin Resendez MD [address] [place] [address] Allergies Active Allergy Reactions Criticality Noted Date [...] prostate cancer 12/27/2018 Overview (01/05/2023): Follows with [facility] Anemia of chronic disease 11/03/2016 Status [...] mRNA, LNP-s, No Pre serve, 2-Dose Series ([employer]) 09/24/2021,02/07/2021,01/12/2021 COVID-19, MRNA-LNP, PF, 30 M CG/0.3 mL, 12 YRS AND ABOVE, IM ([employer]) 09/09/2024 Pneumococcal Conjugate Vacc, 13 Valent (Prevnar) [...] 12/22/2024 7:45 AM EST Office Visit Ophthalmology, [place] [address] [address] Micah Aquino MD [address] [place] [address] 03/16/2025 7:00 AM EDT Office Visit Family [facility], [place] [address] [phone] Calvin Resendez MD [address] [place] [address] Scheduled Referrals Name Type Priority Associated Diagnoses Orde r Schedule SPINE SURGERY REFERRAL OP Referral Within 10 days (routine) Spinal stenosis of lumbar region with neurogenic claudication Ordered: 11/27/2024 Health Maintenance Due Date Last Done Comments DISCUSS TOBACCO CESSATION (REFER TO SMARTSET #0741) 11/03/2017 11/03/2016 (Discussed) Adult Wellness Visit 06/12/2023 06/12/2022 B-12 11/14/2024 11/14/2023, 12/20, 08/28/2019, Additional history exists Albumin/Creatinine Ratio 02/07/20252 024, 01/05/2023, 06/13/2022, Additional history exists GFR 03/10/2025 09/09/2024, 01/17, 07/16/2023, Additional history exists HbA1c 03/10/2025 09/09/2024, 01/17, 07/16/2023, Additional history exists Diabetic Eye Exam 06/16/2025 06/16/2024, , 04/11/2023, Additional history exists CKD HGB USE SMARTSET 23082 09/09/202509/09, 03/28/2023, 01/05/2023, Additional history exists CKD PHOS USE SMARTSET 63633 09/09/202508/20, 02/05/2024, 07/16/2023, Additional history exists Depression [...] claudication documented in this encounter Care Teams Dental Hygiene Teacher Relationship Specialty Start Date End Date Calvin Resendez MD [address] [place] [address] PCP - General Family Medicine 12/12/21 documented as of this encounter
--- OUTSIDE RECORDS SUMMARY | 2025-02-13 20:44 | External Medical Summary | Summary of Care ---
Author Name Unknown Organization [facility] Address [address] [place] [address] Phone [phone] Care Team Providers Care Practical Nursing Instructor Name Role Phone Calvin Resendez MD Primary Care Provider [phone] [phone] Reason for Referral * Evaluate & Treat - Unlimited Visits (Within 10 days (routine)) - Authorized Specialty Diagnoses / Procedures Referred By Contac t Referred To Contact Neuro/Ortho Surgery - Spine. / Neurological Surgery Diagnoses Spinal stenosis of lumbar region with neurogenic claudication Calvin Resendez MD [address] [address] Phone: tel: fax: Referral ID Status Reason Start Date Expiration Date Visits Requested Visits Authorized [id number] Authorized Specialty Services Required 11/27/[phone] Question Answer Referral Priority Within 10 days (routine) Where should this appointment be scheduled? [facility] region: Back - Thoracic/Lumbar Do you have any recent complete loss of bladder or bowel function? No Encounter Details Date Type Department Care Team (Late st Contact Info) Description 11/27/2024 Telephone [facility] Yennifer Alfonso [address] [place] [phone] Calvin Resendez MD [address] [place] [address] Allergies Active Allergy Reactions Criticality Noted Date [...] prostate cancer 12/27/2018 Overview (01/05/2023): Follows with [facility] Anemia of chronic disease 11/03/2016 [...] mRNA, LNP-s, No Pre serve, 2-Dose Series ([employer]) 09/24/2021,02/07/2021,01/12/2021 COVID-19, MRNA-LNP, PF, 30 M CG/0.3 mL, 12 YRS AND ABOVE, IM ([employer]) 09/09/2024 Pneumococcal Conjugate Vacc, 13 Valent (Prevnar) [...] 12/22/2024 7:45 AM EST Office Visit Ophthalmology, [place] [address] [address] Micah Aquino MD [address] [place] [address] 03/16/2025 7:00 AM EDT Office Visit Family [facility], [place] [address] [phone] Calvin Resendez MD [address] [place] [address] Scheduled Referrals Name Type Priority Associated Diagnoses [...] Additional history exists CKD HGB USE SMARTSET 77533 09/09/202509/09, 03/28/2023, 01/05/2023, Additional history exists CKD PHOS USE SMARTSET 34445 09/09/202508/20, 02/05/2024, 07/16/2023, Additional history exists Depression [...] claudication documented in this encounter Care Teams Practical Nursing Instructor Relationship Specialty Start Date End Date Calvin Resendez MD [address] [place] [address] PCP - General Family Medicine 12/12/21 documented as of this encounter
--- OUTSIDE RECORDS SUMMARY | 2025-02-13 20:44 | External Medical Summary | Summary of Care ---
Author Name Unknown Organization [facility] Address [address] [facility] [place] [address] Phone [phone] Care Team Providers Care Learning Services Coordinator Name Role Phone Calvin Resendez MD Primary Care Provider [phone] [phone] Reason for Referral * Evaluate & Treat - Unlimited Visits (Within 10 days (routine)) - Authorized Specialty Diagnoses / Procedures Referred By Contac t Referred To Contact Neuro/Ortho Surgery - Spine. / Neurological Surgery Diagnoses Spinal stenosis of lumbar region with neurogenic claudication Calvin Resendez MD [address] [address] Phone: tel: fax: Referral ID Status Reason Start Date Expiration Date Visits Requested Visits Authorized [id number] Authorized Specialty Services Required 11/27/[phone] [...] (Late st Contact Info) Description 11/27/2024 Telephone [facility] Yennifer Alfonso [address] [phone] [...] mRNA, LNP-s, No Pre serve, 2-Dose Series ([employer]) 09/24/2021,02/07/2021,01/12/2021 COVID-19, MRNA-LNP, PF, 30 M CG/0.3 [...] encounter Miscellaneous Notes * Telephone Encounter - Danielle Shipley, JACQUE - 11/28/2024 10:45 AM EST Faxed as requested * Telephone Encounter - Jolene Aponte OSA - 11/28/2024 10:43 AM EST pt wishes to go back to Dr Kirill John in [place] fax# [phone] please fax order Ty * Telephone Encounter [...] Description 12/22/2024 7:45 AM EST Office Visit [facility] [address] [address] Micah Aquino MD [address] [place] [address] 03/16/2025 7:00 AM EDT Office Visit [facility] [place] [address] [phone] Calvin Resendez MD [address] [place] [address] Scheduled Referrals Name Type Priority Associated Diagnoses [...] Additional history exists CKD HGB USE SMARTSET 98395 09/09/202509/09, 03/28/2023, 01/05/2023, Additional history exists CKD PHOS USE SMARTSET 87257 09/09/202508/20, 02/05/2024, 07/16/2023, Additional history exists Depression [...] claudication documented in this encounter Care Teams Learning Services Coordinator Relationship Specialty Start Date End Date Calvin Resendez MD [address] [address] PCP - General Family Medicine 12/12/21 documented as of this encounter
--- OUTSIDE RECORDS SUMMARY | 2025-02-13 20:44 | External Medical Summary | Summary of Care ---
Author Name Unknown Organization [facility] Address [address] [facility] [address] Phone [phone] Care Team Providers Care Shade Bander Name Role Phone Calvin Resendez MD Primary Care Provider [phone] [phone] Reason for Referral * Evaluate & Treat - Unlimited Visits (Within 10 days (routine)) - Authorized Specialty Diagnoses / Procedures Referred By Contac t Referred To Contact Neuro/Ortho Surgery - Spine. / Neurological Surgery Diagnoses Spinal stenosis of lumbar region with neurogenic claudication Calvin Resendez MD [address] [address] Phone: tel: fax: Referral ID Status Reason Start Date Expiration Date Visits Requested Visits Authorized [id number] Authorized Specialty Services Required 11/27/[phone] Question Answer Referral Priority Within 10 days (routine) Where should this appointment be scheduled? [facility] region: Back - Thoracic/Lumbar Do you have any recent complete loss of bladder or bowel function? No Encounter Details Date Type Department Care Team (Late st Contact Info) Description 11/27/2024 Telephone [facility] Yennifer Alfonso [address] [phone] Calvin Resendez MD [address] [place] [address] Allergies Active Allergy Reactions Criticality Noted Date [...] prostate cancer 12/27/2018 Overview (01/05/2023): Follows with [facility] Anemia of chronic disease 11/03/2016 Status post [...] mRNA, LNP-s, No Pre serve, 2-Dose Series ([employer]) 09/24/2021,02/07/2021,01/12/2021 COVID-19, MRNA-LNP, PF, 30 M CG/0.3 mL, 12 YRS AND ABOVE, IM ([facility]) 09/09/2024 Pneumococcal Conjugate Vacc, 13 Valent (Prevnar) [...] 12/22/2024 7:45 AM EST Office Visit Ophthalmology, [place] [address] [address] Micah Aquino MD [address] [address] 03/16/2025 7:00 AM EDT Office Visit Family [facility], [place] [address] [phone] Calvin Resendez MD [address] [place] [address] Scheduled Referrals Name Type Priority Associated Diagnoses [...] Additional history exists CKD HGB USE SMARTSET 28176 09/09/202509/09, 03/28/2023, 01/05/2023, Additional history exists CKD PHOS USE SMARTSET 68233 09/09/202508/20, 02/05/2024, 07/16/2023, Additional history exists Depression [...] claudication documented in this encounter Care Teams Shade Bander Relationship Specialty Start Date End Date Calvin Resendez MD [address] [address] PCP - General Family Medicine 12/12/21 documented as of this encounter
--- OUTSIDE RECORDS SUMMARY | 2025-02-13 20:45 | External Medical Summary | Summary of Care ---
Author Name Unknown Organization [facility] Address [address] [facility] [place] [address] Phone [phone] Care Team Providers Care Supervisor Dairy Sanitation Name Role Phone Augie Freire MD Primary Care Provider [phone] [phone] Reason for Visit * Reason Comments eRx-Medication Refill Encounter Details Date Type Department Care Team (Late st Contact Info) Description 11/08/2024 Refill [facility] [address] [facility] [place] [phone] Augie Freire MD 21 [facility] [place] [address] HTN, goal below 130/80 Allergies Active Allergy Reactions Criticality Noted Date Comments Bee Venom 07/24/2014 documented as of this encounter (statuses as of 11/10/2024) Medications EPIPEN 2-GRZEGORZ 0.3 MG/0.3ML IJ SOAJ as needed Act elton BD Pen Needle Short U/F 31G X 8 MM (Insulin Pen Needle)Indication s:Type 2 diabetes mellitus with hemoglobin A1c goal of less than 7.0% ([facility]) USE DIRECTED WITH VICTOZA 100 Each 3 022 Active metFORMIN HCl 1000 MG Oral Tablet (Glucophage)Indic ations:Type 2 diabetes mellitus with hemoglobin A1c goal of less than 7.0% ([facility]) take 1 tablet by mouth twice a day 180 Tablet 1 023 Active Ozempic (0.25 or 0.5 MG/DOSE) 2 MG/3ML Solution Pen-injector (Semaglutide(0.25 or 0.5MG/DOS)) inject 0.5 milligram subcutaneously every week 9 mL 1 Active Gabapentin 100 MG Oral Capsule (Neurontin)Indica tions:Chronic bilateral low back pain with left-sided sciatica 2 three times a day 540 Capsule 1 Active Empagliflozin 10 MG Oral Tablet (Jardiance) Take 1 Tablet by mouth in the morning. 90 Tablet 1 024 Active Atenolol 50 MG Oral [...] at bedtime 90 Tablet 1 024 Active Valsartan 80 MG Oral Tablet (Diovan)Indicatio ns:HTN, goal below 130/80 Take 1 Tablet by mouth at bedtime. 90 Tablet 1 024 2023 Discontinued documented as of this encounter (statuses as of 11/10/2024) Active Problems Problem Noted Date Diagnosed Date [...] prostate cancer 12/27/2018 Overview (01/05/2023): Follows with [facility] Anemia of chronic disease 11/03/2016 Status post lumbar spinal fusion 08/13/2015 Type 2 diabetes mellitus wit h hemoglobin A1c goal of less than 7.0% 07/24/2014 Overview (03/14/2016): ICD-10 update of inactive term HTN, goal below 130/80 07/24/2014 Hyperlipidemia 07/24/2014 Displacement of lumbar inter vertebral disc without myelopathy 05/30/2011 documented as of this encounter (statuses as of 11/10/2024) Resolved Problems Problem Noted Date Diagnosed Date [...] as of this encounter (statuses as of 11/10/2024) Immunizations Name Administration Dates Next Due COVID-19 mRNA, LNP-s, No Pre serve, 2-Dose Series ([employer]) 09/24/2021,02/07/2021,01/12/2021 COVID-19, MRNA-LNP, PF, 30 M CG/0.3 mL, 12 YRS AND ABOVE, IM ([facility] 09/09/2024 Pneumococcal Conjugate Vacc, 13 Valent (Prevnar) [...] No 02/05/2024 Does the household have a [facility] source of income? (Household - for ages [...] encounter Miscellaneous Notes * Telephone Encounter - Juan Francisco Melendez RPh - 11/10/2024 11:53 AM EST Signed Prescriptions: Disp Refills Valsartan 80 MG Oral Tablet (Diovan) 90 Tab*1 Sig: take 1 tablet by mouth at bedtimeAuthorizing Provider: AUGIE FREIRE User: JUAN FRANCISCO MELENDEZ- documented in this encounter Plan of Treatment Upcoming Encounters Date Type Department Care Team (Late st Contact Info) Description 11/22/2024 12:30 PM EST [address] [address] 11/22/2024 1:15 PM EST Hospital Encounter Radiology, [address] [place] [address] 12/22/2024 7:45 AM EST Office Visit Ophthalmology, [place] [address] [address] Micah Aquino MD 21 [facility] [place] [address] 03/16/2025 7:00 AM EDT Office Visit Family Practice, [place] [address] [phone] [facility] [place] [address] Health Maintenance Due Date Last Done Comments [...] Additional history exists CKD HGB USE SMARTSET 22614 09/09/202509/09, 03/28/2023, 01/05/2023, Additional history exists CKD PHOS USE SMARTSET 23883 09/09/202508/20, 02/05/2024, 07/16/2023, Additional history exists Depression Screening 09/09/2025 09/09/2024 Diabetic Foot Exam 09/09/2025 09/09/2024, 0 07/16/2023, 06/12/2022, Additional history exists DTap/Tdap Vaccines (2 - Td or Tdap) 03/29/2028 03/29/2018 Pneumococcal Vaccine: 65+ Years Completed 02/04/2016, 12/09/2010 Zoster Vaccines Completed [...] as of this encounter Visit Diagnoses Diagnosis HTN, goal below 130/80 Unspecified essential hypertension documented in this encounter Care Teams Supervisor Dairy Sanitation Relationship Specialty Start Date End Date Aguie Freire MD [address] [place] [address] PCP - General Family Medicine 12/12/21 documented as of this encounter
--- OUTSIDE RECORDS SUMMARY | 2025-02-13 20:45 | External Medical Summary | Summary of Care ---
Author Name Unknown Organization [facility] [address] [place] [address] Phone [phone] Care Team Providers Care Tutor Coordinator Name Role Phone Calvin Resendez MD Primary Care Provider [phone] [phone] Encounter Details Date Type Department Care Team (Latest Contact Info) Description 10/29/2024 1:25 PM EST - 10/29/2024 11:59 PM [facility] Hospital Encounter Radiology, [address] [phone] Arrived Discharge Disposition: Home - Self Care Allergies Active Allergy Reactions Criticality Noted Date Comments Bee Venom 07/24/2014 documented as of this encounter (statuses as of 10/30/2024) Medications EPIPEN 2-GRZEGORZ 0.3 MG/0.3ML IJ SOAJ [...] daily 90 Tablet 1 05/15/20 24 Active Valsartan 80 MG Oral Tablet (Diovan)Indication s:HTN, goal below 130/80 Take 1 Tablet by mouth at bedtime. 90 Tablet 1 05/15/20 24 Active Atorvastatin Calcium 20 MG Oral Tablet (Lipitor)Indicatio ns:Hyperlipidemia, unspecified hyperlipidemia type take 1 tablet by mouth once daily 90 Tablet 2 07/15/20 24 Active documented as of this encounter (statuses as of 10/30/2024) Active Problems Problem Noted Date Diagnosed Date Type 2 diabetes mellitus wit h stage 3 chronic kidney disease, without long-term current use of insulin 12/01/2020 Hypertensive kidney disease with stage 3a chronic kidney disease 09/27/2020 Overview: Per CKD protocol Spinal stenosis of lumbar re gion without neurogenic claudication 08/28/2019 History of prostate cancer 12/27/2018 Overview (01/05/2023): Follows with [facility] Anemia of chronic disease 11/03/2016 Status post lumbar spinal fusion 08/13/2015 Type 2 diabetes mellitus wit h hemoglobin A1c goal of less than 7.0% 07/24/2014 Overview (03/14/2016): ICD-10 update of inactive term HTN, goal below 130/80 07/24/2014 Hyperlipidemia 07/24/2014 Displacement of lumbar inter vertebral disc without myelopathy 05/30/2011 documented as of this encounter (statuses as of 10/30/2024) Resolved Problems Problem Noted Date Diagnosed Date [...] as of this encounter (statuses as of 10/30/2024) Immunizations Name Administration Dates Next Due COVID-19 mRNA, LNP-s, No Pre serve, 2-Dose Series ([employer]) 09/24/2021,02/07/2021,01/12/2021 COVID-19, MRNA-LNP, PF, 30 M CG/0.3 mL, 12 YRS AND ABOVE, IM ([employer]) 09/09/2024 Pneumococcal Conjugate Vacc, 13 Valent (Prevnar) [...] No 02/05/2024 Does the household have a [facility] source of income? (Household - for [...] 12/22/2024 7:45 AM EST Office Visit Ophthalmology, [place] [address] Micah Aquino MD [address] [place] [place] [address] 03/16/2025 7:00 AM EDT Office Visit Family Practice, [place] [address] [phone] Calvin Resendez MD [address] [place] [address] Health Maintenance Due Date Last Done Comments [...] Additional history exists CKD HGB USE SMARTSET 19442 09/09/202509/09, 03/28/2023, 01/05/2023, Additional history exists CKD PHOS USE SMARTSET 43234 09/09/202508/20, 02/05/2024, 07/16/2023, Additional history exists Depression [...] Procedure Name Priority Date/Time Associated Diagnosis Comments US RENAL Routine 10/29/2024 6:11 PM EST Acute right flank pain documented in this encounter Results * US RENAL (10/29/2024 6:11 PM EST) Anatomical Region Laterality Modality Abdomen, Body Ultrasound 10/30/2024 8:23 AM EST Impressions 10/30/2024 8:21 AM EST IMPRESSION: Kidneys within normal limits. Proximal abdominal aorta aneurysm. Diffuse urinary bladder wall thickening and trabeculation as discussed. Prostate gland enlarged. Cholelithiasis. Narrative 10/30/2024 8:21 AM EST EXAM: US RENAL HISTORY: 2 weeks right flank pain, rule out kidney stone TECHNIQUE: Real-time scanning performed of kidneys, visualized regional abdominal aorta and urinary bladder. COMPARISON: XR ABDOMEN 1 VIEW, ACC: [id number], dated 2024-10-27 15:47:50; CT UROGRAPHY W WO CONTRAST, ACC: [id number], dated 2024-03-17 14:56:45; XR ABDOMEN 1 VIEW, ACC: [id number], dated 2022-07-12 12:27:53 FINDINGS: Kidneys: Renal size length: Right-12.6 cm and left-11.5 cm Each renal contour is lobulated. There is no discrete focal lesion identified. Cortex bilaterally maintained in regard to thickness/echotexture. No hydronephrosis. No demonstrable intrarenal calculus or perinephric abnormality. Limited gallbladder: Limited image gallbladder demonstrates cholelithiasis. Visualized regional abdominal aorta: There is aneurysmal dilatation proximal abdominal aorta with AP diameter of 3.3 cm and transverse diameter 3.1 cm. AP diameters: Mid-2.5 cm and distal-2.2 cm There is atherosclerotic change. Urinary bladder: Not optimally distended. No gross intraluminal lesion. The urinary bladder wall is again diffusely thickened and trabeculated. This could in part reflect degree of distension however outlet obstruction, inflammatory/infectious or infiltrative process are differential considerations. Please correlate clinically Prostate gland measurements correspond to volume approximally 70 cc; enlarged Procedure Note Bo Miller MD - 10/30/2024 EXAM: US RENAL HISTORY: 2 weeks right flank pain, rule out kidney stone TECHNIQUE: Real-time scanning performed of kidneys, visualized regional abdominalaorta and urinary bladder. COMPARISON: XR ABDOMEN 1 VIEW, ACC: [id number], dated 2024-10-27 15:47:50; CT UROGRAPHY W WO CONTRAST, ACC: [id number], dated 2024-03-17 14:56:45; XR ABDOMEN 1 VIEW, ACC: [id number], dated 2022-07-12 12:27:53 FINDINGS: Kidneys: Renal size length: Right-12.6 cm and left-11.5 cm Each renal contour is lobulated. There is no discrete focal lesionidentified. Cortex bilaterally maintained in regard tothickness/echotexture. No hydronephrosis. No demonstrable intrarenal calculus or perinephric abnormality. Limited gallbladder: Limited image gallbladder demonstratescholelithiasis. Visualized regional abdominal aorta: There is aneurysmal dilatation proximal abdominal aorta with AP diameterof 3.3 cm and transverse diameter 3.1 cm. AP diameters: Mid-2.5 cm and distal-2.2 cm There is atherosclerotic change. Urinary bladder: Not optimally distended. No gross intraluminal lesion. The urinary bladder wall is again diffusely thickened and trabeculated.This could in part reflect degree of distension however outletobstruction, inflammatory/infectious or infiltrative process aredifferential considerations. Please correlate clinically Prostate gland measurements correspond to volume approximally 70 cc;enlarged IMPRESSION IMPRESSION: Kidneys within normal limits. Proximal abdominal aorta aneurysm. Diffuse urinary bladder wall thickening and trabeculation as discussed.Prostate gland enlarged. Cholelithiasis. us Calvin Resendez MD RAD ULTRASOUND Final Res ult documented in this encounter Visit Diagnoses Diagnosis Acute right flank pain Abdominal pain, unspecified site documented in this encounter Care Teams Tutor Coordinator Relationship Specialty Start Date End Date [facility]endez MD [facility] [place] [id number] PCP - General Family Medicine 12/12/21 documented as of this encounter
--- OUTSIDE RECORDS SUMMARY | 2025-02-13 20:45 | External Medical Summary ---
Author Name Unknown Address Unknown Organization K01:[facility] [place] - [address] [place] [address] Laboratory Report Ordering Provider Test Date Status TANI GHOSH 09/09/2024 10:55:06 Final Observation Date Value Abnormality Reference (Units ) Status BUN 09/09/2024 10:55:06 33 Above high normal 6-20 (mg/dL) Final Creatinine 09/09/2024 10:55:06 1.2 0.6-1.2 (mg/dL) Final Glomerular filtration rate/1.73 sq M.predicted [Volume Rate/Area] in Serum, Plasma or Blood by Creatinine-based formula (CKD-EPI) 09/09/2024 10:55:06 60 >=60 (mL/min) Final eGFR is calculated based on the CKD-EPI 2020 equation. Sodium 09/09/2024 10:55:06 141 135-146 (m mol/L) Final Potassium 09/09/2024 10:55:06 4.7 3.5-5.1 (m mol/L) Final Cl 09/09/2024 10:55:06 104 98-107 (mm ol/L) Final CO2 09/09/2024 10:55:06 24 22-32 (mmo l/L) Final Anion gap 09/09/2024 10:55:06 13 7-15 (mmol /L) Final Glucose 09/09/2024 10:55:06 155 Above high normal 70 -120 (mg/dL) Final Calcium 09/09/2024 10:55:06 10.5 Above high normal 8. 4-10.2 (mg/dL) Final Albumin 09/09/2024 10:55:06 4.9 3.8-5.0 (g /dL) Final Phosphate 09/09/2024 10:55:06 3.9 2.5-4.8 (m g/dL) Final Performing Location [facility] [place] - [address] [place] [address]
--- OUTSIDE RECORDS SUMMARY | 2025-02-13 20:45 | External Medical Summary | Summary of Care ---
Author Name Unknown Organization [facility] [address] [place] [address] Phone [phone] Care Team Providers Care Senior Analyst Programmer Name Role Phone Calvin Resendez MD Primary Care Provider [phone] Reason for Visit * Reason Onset Date Comments Appointment 11/17/2024 Encounter Details Date Type Department Care Team (Late st Contact Info) Description 11/17/2024 Telephone Radiology, [address] [address] Jose Armando Valladares, RT Appointment Allergies Active Allergy Reactions Criticality Noted Date Comments Bee Venom 07/24/2014 documented as of this encounter (statuses as of 11/17/2024) Medications EPIPEN 2-GRZEGORZ 0.3 MG/0.3ML IJ SOAJ [...] a day 540 Capsule 1 05/15/20 Active Empagliflozin 10 MG Oral Tablet (Jardiance) [...] as of this encounter (statuses as of 11/17/2024) Active Problems Problem Noted Date Diagnosed Date [...] prostate cancer 12/27/2018 Overview (01/05/2023): Follows with [facility] Anemia of chronic disease 11/03/2016 Status post lumbar spinal fusion 08/13/2015 Type 2 diabetes mellitus wit h hemoglobin A1c goal of less than 7.0% 07/24/2014 Overview (03/14/2016): ICD-10 update of inactive term HTN, goal below 130/80 07/24/2014 Hyperlipidemia 07/24/2014 Displacement of lumbar inter vertebral disc without myelopathy 05/30/2011 documented as of this encounter (statuses as of 11/17/2024) Resolved Problems Problem Noted Date Diagnosed Date [...] as of this encounter (statuses as of 11/17/2024) Immunizations Name Administration Dates Next Due COVID-19 mRNA, LNP-s, No Pre serve, 2-Dose Series ([employer]) 09/24/2021,02/07/2021,01/12/2021 COVID-19, MRNA-LNP, PF, 30 M CG/0.3 mL, 12 YRS AND ABOVE, IM ([employer]) 09/09/2024 Pneumococcal Conjugate Vacc, 13 Valent (Prevnar) [...] encounter Miscellaneous Notes * Telephone Encounter - Jose Armando Valladares RT - 11/17/2024 2:49 PM EST No answer/voicemail for mri questioning documented in this encounter Plan of Treatment Upcoming Encounters Date Type Department Care Team (Late st Contact Info) Description 11/22/2024 12:30 PM EST Appointment Radiology[address] [place] [address] 11/22/2024 1:15 PM EST Hospital Encounter Radiology[address] [place] [address] 12/22/2024 7:45 AM EST [facility] [address] [place] [address] [facility] Aquino MD [facility] [place] [address] 03/16/2025 7:00 AM EDT Office Visit [facility], [place] [address] [place] [phone] Calvin Resendez MD [address] [place] [address] Health Maintenance Due Date Last Done Comments [...] Additional history exists CKD HGB USE SMARTSET 53340 09/09/202509/09, 03/28/2023, 01/05/2023, Additional history exists CKD PHOS USE SMARTSET 78621 09/09/202508/20, 02/05/2024, 07/16/2023, Additional history exists Depression [...] filedocumented as of this encounter Care Teams Senior Analyst Programmer Relationship Specialty Start Date End Date Calvin Resendez MD [address] [place] [address] PCP - General Family Medicine 12/12/21 documented as of this encounter
--- OUTSIDE RECORDS SUMMARY | 2025-02-13 20:45 | External Medical Summary | Summary of Care ---
Author Name Unknown Organization [facility] Address [address] [place] [address] Phone [phone] Care Team Providers Care Cap And Stud Machine Operator Name Role Phone Calvin Resendez MD Primary Care Provider [phone] Reason for Visit * Reason Onset Date Comments ST[facility]IR [facility] 11/04/2024 Encounter Details Date Type Department Care Team (Late st Contact Info) Description 11/04/2024 Telephone [facility] [address], [place] [id number] Program, [place]air [address] [place] [address] [facility]IR [facility] Allergies Active Allergy Reactions Criticality Noted Date Comments Bee Venom 07/24/2014 documented as of this encounter (statuses as of 11/04/2024) Medications EPIPEN 2-GRZEGORZ 0.3 MG/0.3ML IJ SOAJ [...] as of this encounter (statuses as of 11/04/2024) Active Problems Problem Noted Date Diagnosed Date [...] prostate cancer 12/27/2018 Overview (01/05/2023): Follows with [facility] Anemia of chronic disease 11/03/2016 Status post lumbar spinal fusion 08/13/2015 Type 2 diabetes mellitus wit h hemoglobin A1c goal of less than 7.0% 07/24/2014 Overview (03/14/2016): ICD-10 update of inactive term HTN, goal below 130/80 07/24/2014 Hyperlipidemia 07/24/2014 Displacement of lumbar inter vertebral disc without myelopathy 05/30/2011 documented as of this encounter (statuses as of 11/04/2024) Resolved Problems Problem Noted Date Diagnosed Date [...] as of this encounter (statuses as of 11/04/2024) Immunizations Name Administration Dates Next Due COVID-19 mRNA, LNP-s, No Pre serve, 2-Dose Series ([employer]) 09/24/2021,02/07/2021,01/12/2021 COVID-19, MRNA-LNP, PF, 30 M CG/0.3 [...] encounter Miscellaneous Notes * Telephone Encounter - Pamela Torres LPN - 11/04/2024 11:12 AM EST AAA - Communication to Patient Patient contacted, recommendations reviewed, patient agrees, follow-up letter sent. Enrolled in STAIR Program PCP ОЛЬГА Torres LPN Coordinator STAIR (System to Track Abnormalities of Importance Reliably) [phone] * Telephone Encounter - Pamela Torres LPN - 11/04/2024 11:05 AM EST AAA - Clinical Summary Name: Alexi Freeman Age: [age] year old AAA Review: Initial Follow-up Encounter Provider: N/A Patient Identified by: NLP Report Imaging Interpretation: Ultrasound Type of Result: AAA 3.0 to 3.9 cm AAA Care Plan Imaging Recommendation: Aortic Duplex - details below Details: in 2 years AAA Care Plan Visit Recommendation: No Visit needed Details: None Next steps: Enroll in STAIR Program. Time spent: 15 minutes Patient managed in STAIR Program for Abdominal Aortic Aneurysm - banner added AAA - Communication to Patient Left Message Pamela Torres LPN Coordinator STAIR (System to Track Abnormalities of Importance Reliably) US RENAL 10/29/2024 Narrative EXAM: US RENAL HISTORY: 2 weeks right flank pain, rule out kidney stone TECHNIQUE: Real-time scanning performed of kidneys, visualized regional abdominal aorta and urinary bladder. COMPARISON: XR ABDOMEN 1 VIEW, ACC: [id number], dated 2024-10-27 15:47:50; CT UROGRAPHY W WO CONTRAST, ACC: [id number], dated 2024-03-17 14:56:45; XR ABDOMEN 1 VIEW, ACC: [id number], dated 2022-07-12 12:27:53 FINDINGS: Kidneys: Renal size [...] however outlet obstruction, inflammatory/infectious or infiltrative process aredifferential considerations. Please correlate clinically Prostate gland measurements correspond to volume approximally 70 cc; enlarged Impression IMPRESSION: Kidneys within normal limits. Proximal abdominal aorta aneurysm. Diffuse urinary bladder wall thickening and trabeculation as discussed. Prostate gland enlarged. Cholelithiasis. documented in this encounter Plan of Treatment Upcoming Encounters Date Type Department Care Team (Late st Contact Info) Description 11/22/2024 12:30 PM EST [address] [place] [address] 11/22/2024 1:15 PM EST [address]ment [address], [address] [place] [address] 12/22/2024 7:45 AM EST Office Visit Ophthalmology, [place] [address] [place] [address] Micah Aquino MD 21 [facility] [place] [address] 03/16/2025 7:00 AM EDT Office Visit Family Practice, [place] [address] [place] [phone] Calvin [facility] [place] [address] Health Maintenance Due Date Last Done Comments [...] Additional history exists CKD HGB USE SMARTSET 31014 09/09/202509/09, 03/28/2023, 01/05/2023, Additional history exists CKD PHOS USE SMARTSET 18410 09/09/202508/20, 02/05/2024, 07/16/2023, Additional history exists Depression Screening 09/09/2025 09/09/2024 Diabetic Foot Exam 09/09/2025 09/09/2024, 0 07/16/2023, 06/12/2022, Additional history exists AAA Monitoring 10/29/2025 10/29/2024, 11/16/2016 DTap/Tdap Vaccines (2 - Td or Tdap) [...] filedocumented as of this encounter Care Teams Cap And Stud Machine Operator Relationship Specialty Start Date End Date Calvin Resendez MD [address] [place] [phone] PCP - General Family Medicine 12/12/21 documented as of this encounter
--- OUTSIDE RECORDS SUMMARY | 2025-02-13 20:45 | External Medical Summary | Summary of Care ---
Author Name Unknown Organization [facility] Address [address] [place] [address] Phone [phone] Care Team Providers Care Crime Prevention Police Officer Name Role Phone Calvin Resendez MD Primary Care Provider [phone] Encounter Details Date Type Department Care Team (Late st Contact Info) Description 08/18/2024 Orders Only Outcomes Research Department [address] [place] [address] Cherri Dc CHRA Maples [employer] Research Other*[id number] Allergies Active Allergy Reactions Criticality Noted Date Comments Bee Venom 07/24/2014 documented as of this encounter (statuses as of 08/18/2024) Medications Medication Sig Dispensed Refills Start Date End Date Status EPIPEN 2-GRZEGORZ 0.3 MG/0.3ML IJ SOAJ as needed Active BD Pen Needle Short U/F 31G X 8 MM (Insulin Pen Needle)Indications: Type 2 diabetes mellitus with hemoglobin A1c goal of less than 7.0% (HCC) USE DIRECTED WITH VICTOZA 100 Each 3 01/18/2022 Active metFORMIN HCl 1000 MG Oral Tablet (Glucophage)Indicat ions:Type 2 diabetes mellitus with hemoglobin A1c goal of less than 7.0% (HCC) take 1 tablet by mouth twice a day 180 Tablet 1 08/01/2023 Active Additional Information Patient not taking.Reported on 04/02/2024 Ozempic (0.25 or 0.5 MG/DOSE) 2 MG/3ML Solution Pen-injector (Semaglutide(0.25 or 0.5MG/DOS)) inject 0.5 milligram subcutaneously every week 9 mL 1 05/15/2024 Active Gabapentin 100 MG Oral Capsule (Neurontin)Indicati ons:Chronic bilateral low back pain with left-sided sciatica 2 three times a day 540 Capsule 1 05/15/2024 Active Empagliflozin 10 MG Oral Tablet (Jardiance) Take 1 Tablet by mouth in the morning. 90 Tablet 1 05/15/2024 Active Atenolol 50 MG Oral Tablet (Tenormin)Indicatio ns:HTN, goal below 130/80 take 1 tablet by mouth once daily 90 Tablet 1 05/15/2024 Active Valsartan 80 MG Oral Tablet (Diovan)Indications :HTN, goal below 130/80 Take 1 Tablet by mouth at bedtime. 90 Tablet 1 05/15/2024 Active Atorvastatin Calcium 20 MG Oral Tablet (Lipitor)Indication s:Hyperlipidemia, unspecified hyperlipidemia type take 1 tablet by mouth once daily 90 Tablet 2 07/15/2024 Active documented as of this encounter (statuses as of 08/18/2024) Active Problems Problem Noted Date Diagnosed Date Type 2 diabetes mellitus wit h stage 3a chronic kidney disease, without long-term current use of insulin 02/05/2024 Type 2 diabetes mellitus wit h stage 3 chronic kidney disease, without long-term current use of insulin 12/01/2020 Hypertensive kidney disease with stage 3a chronic kidney disease 09/27/2020 Overview: Per CKD protocol Spinal stenosis of lumbar re gion without neurogenic claudication 08/28/2019 History of prostate cancer 12/27/2018 Overview: [facility] Anemia of chronic disease 11/03/2016 Status post lumbar spinal fusion 08/13/2015 Type 2 diabetes mellitus wit h hemoglobin A1c goal of less than 7.0% 07/24/2014 Overview: ICD-10 update of inactive term HTN, goal below 130/80 07/24/2014 Hyperlipidemia 07/24/2014 Displacement of lumbar inter vertebral disc without myelopathy 05/30/2011 documented as of this encounter (statuses as of 08/18/2024) Resolved Problems Problem Noted Date Diagnosed Date Resolved Date Chronic kidney disease, stage 3a 01/02/2022 01/05/2023 [...] as of this encounter (statuses as of 08/18/2024) Immunizations Name Administration Dates Next Due COVID-19 mRNA, LNP-s, No Pre serve, 2-Dose Series ([employer]) 09/24/2021,02/07/2021,01/12/2021 Pneumococcal Conjugate Vacc, 13 Valent (Prevnar) 02/04/2016 Pneumococcal Polysaccharide PPV23 (Pneumovax) 12/09/2010 Season Influenza, Quad, PF, Adjuvanted, 65+ Yrs, IM (FLUAD) 08/20/2020 Seasonal Influenza, PF, 6 M & above, IM , (FluLaval or Fluzone) 12/27/2018,08/17/2017 Seasonal Influenza, Quadriva lent Hd (Fluzone Hd) 11/14/2023,01/05/2023,12/12/2021 Seasonal Influenza, Quadriva lent, No Preserve, IM 11/03/2016,08/13/2015 Seasonal Influenza, Trivalen t, (IIV3), with Preserv, (Fluzone) 07/24/2014,10/24/2013,10/19/2012,10/06,09/26/2010,10/19/2009 Seasonal Influenza, Trivalen t, Adjuvanted, 65+ YRS, [...] Date Recorded PHQ Adult Total Score 0 07/16/2023 Hunger Vital Sign Answer Date Recorded Within [...] Assigned at Male 06/12/2022 8:06 AM EDT Gender Identity Not on file Sexual Orientation Not on file Job Start Date Occupation Industry Not on file Not on file Not on file documented as of this encounter Plan of Treatment Upcoming Encounters Date Type Department Care Team (Late st Contact Info) Description 09/09/2024 9:20 AM EDT Office Visit Family Practice, [place] [address] [place] [phone] Calvin Resendez MD [address] [place] [address] 12/22/2024 7:45 AM EST Office Visit Ophthalmology, [place] [address] [place] [address] Micah Aquino MD [address] [place] [address] Scheduled Orders Name Type Priority Associated Diagnoses Orde r Schedule MYCODE SUBSEQUENT ADULT Lab Routine [employer] Research Other*[id number] Every 6 Months for 2 Occurrences starting 08/18/2024 until 09/07/2025 Health Maintenance Due Date Last Done Comments DISCUSS TOBACCO CESSATION (REFER TO SMARTSET #3291) 11/03/2017 11/03/2016 (Discussed) Adult Wellness Visit 06/12/2023 06/12/2022 CKD HGB USE SMARTSET 29153 03/28/202403/28, 01/05/2023, 06/13/2022, Additional history exists Depression Screening 07/16/2024 07/16/2023 Diabetic Foot Exam 07/16/2024 07/16/2023, 0 06/12/2022, 06/03/2021, Additional history exists COVID-19 Vaccine ( season) 2024 09/24/2021, 02/07/2021, 01/12/2021 Influenza Vaccine (FLU shot) (#1) 2024 11/14/2023, 01/05/2023, 12/12/2021, Additional history exists GFR 08/07/2024 02/05/2024, 06/20, 01/05/2023, Additional history exists HbA1c 08/07/2024 02/05/2024, 06/20, 01/05/2023, Additional history exists B-12 11/14/2024 11/14/2023, 12/20, 08/28/2019, Additional history exists CKD PHOS USE SMARTSET 26319 02/04/202501/17, 07/16/2023, 01/05/2023, Additional history exists Albumin/Creatinine Ratio 02/07/2025 024, 01/05/2023, 06/13/2022, Additional history exists Diabetic Eye Exam 06/16/2025 06/16/2024, , 04/11/2023, Additional history exists DTap/Tdap Vaccines (2 - Td or Tdap) 03/29/2028 03/29/2018 Pneumococcal Vaccine: 65+ Years Completed 02/04/2016, 12/09/2010 Zoster Vaccines Completed 06/14/2022, 11/2021, 08/13/2015 HPV (Gardasil) Vaccine Aged Out No lo [...] as of this encounter Visit Diagnoses Diagnosis [employer] Research Other*[id number] documented in this encounter Care Teams Crime Prevention Police Officer Relationship Specialty Start Date End Date Calvin Resendez MD [address] [place] [phone] PCP - General Family Medicine 12/12/21 documented as of this encounter
--- OUTSIDE RECORDS SUMMARY | 2025-02-13 20:45 | External Medical Summary | Summary of Care ---
Author Name Unknown Organization [facility] Address [address] [facility] [place] [address] Phone [phone] Care Team Providers Care Parking Officer Name Role Phone Calvin Resendez MD Primary Care Provider [phone] Reason for Visit * Reason Comments Acute Pain in leg and back , mostly right side x 2 weeks Encounter Details Date Type Department Care Team (Late st Contact Info) Description 10/27/2024 2:40 PM EST Office Visit [facility] [address] [facility] [place] [address] Calvin Resendez MD [address] [place] [address] Acute right flank pain* Allergies Active Allergy Reactions Criticality Noted Date Comments Bee Venom 07/24/2014 documented as of this encounter (statuses as of 10/30/2024) Medications EPIPEN 2-GRZEGORZ 0.3 MG/0.3ML IJ SOAJ as needed Act elton BD Pen Needle Short U/F 31G X 8 MM (Insulin Pen Needle)Indications :Type 2 diabetes mellitus with hemoglobin A1c goal of less than 7.0% ([facility]) USE DIRECTED WITH VICTOZA 100 Each [...] prostate cancer 12/27/2018 Overview (01/05/2023): Follows with [facility] Anemia of chronic disease 11/03/2016 Status [...] mRNA, LNP-s, No Pre serve, 2-Dose Series ([employer]) 09/24/2021,02/07/2021,01/12/2021 COVID-19, MRNA-LNP, PF, 30 M CG/0.3 [...] No 02/05/2024 Does the household have a [facility] source [facility]? (Household - for ages [...] Sign Reading Time Taken Comments Blood Pressure 156/93 10/27/2024 2:50 PM EST Pulse 58 10/27/2024 2:50 PM EST Temperature 35.7 C (96.2 F) 10/27/2024 2:50 PM ES T Respiratory Rate 16 10/27/2024 2:50 PM EST Oxygen Saturation 99% 10/27/2024 2:50 PM EST Inhaled Oxygen Concentration - - Weight 89.7 kg (197 lb 11.2 oz) 10/27/2024 2:50 PM EST Height - - Body Mass Index 27.57 09/09/2024 9:41 AM EDT documented in this encounter Progress Notes * Calvin Resendez MD - 10/30/2024 4:34 PM EST Images from the original note were not included. Subjective Alexi Freeman is a 79 year old male that presents for Acute (Pain in leg and back, mostly rightside x 2 weeks) History of Present Illness The patient, an 79-year-old with a history of falls and back pain, presents with a three-week history of persistent right-sided back pain, radiating down the leg. The pain has been severe enough to disrupt sleep and necessitate the use of a walker for mobility, which is unusual for the patient. Thepain is localized to the upper right side of the back, at the level of the ribs, and has been contin uous for the past two weeks. The patient reports a history of similar pain associated with a kidneystone about ten years ago, and questions whether this could be a recurrence. The patient also reports increased urinary frequency, urinating approximately every two hours, which is more than usual. The volume of urine is described as small, about a quarter of a test sample. There is no reported dysuria, hematuria, fever, or chills. The patient has a history of urinary tract infections, with the most recent episode occurring in July. The patient has a history of falls, with the most recent fall occurring about six months ago. The patient wonders if a fall could have caused a rib injury that is contributing to the current pain. The patient also has a history of hardware placement in the lower lumbar region, but the pain is described as being higher than the hardware. The patient has previously undergone physical therapy for left leg weakness and has found it beneficial. The patient reports no current leg weakness, just pain. The patient has been on Jardiance for several years and recalls a previous episode of hematuria while on this medication. Objective Vitals: 10/27/24 1450 Temp: 96.2 F (35.7 C) Pulse: 58 Resp: 16 SpO2: 99% BP: 156/93 Physical Exam ABDOMEN: No tenderness on palpation, no fullness. GENITOURINARY: Increased urinary frequency without dysuria or hematuria. EXTREMITIES: No edema. MUSCULOSKELETAL: Able to flex and extend lower extremities without pain. NEUROLOGICAL: Normal range of motion in hips, no discomfort with circumduction or cross-body adduction. I have reviewed the following results: Results LABS Urinalysis: E. Coli UTI (07/2024) RADIOLOGY Hip X-ray: No acute displaced fracture or dislocation. Mild degenerative changes of both hips. Lumbar spinal hardware intact. (08/2024) CT Urography: No significant findings in bones. (02/2024) Assessment and Plan Assessment & Plan Right-sided Back Pain Chronic right-sided back pain radiating down the leg for two weeks, severe enough to disrupt sleep and mobility, requiring a walker. Previous hip x-rays showed mild degenerative changes but no acute fractures or dislocations. Differential diagnosis includes musculoskeletal injury, kidney stone, or UTI. Discussed limitations of x-rays in detecting kidney stones and potential need for ultrasound. History of kidney stones may contribute to symptoms. - Order x-ray of ribs and kidneys - Order urine analysis - Encourage increased fluid intake - Recommend stretching and heat application - Order kidney ultrasound if x-ray is inconclusive Urinary Frequency Increased urinary frequency, urinating every two hours with small volumes. Previous urine sample showed E. Coli UTI. No fever, chills, or hematuria. Differential diagnosis includes UTI or kidney stone. Discussed need for antibiotics if UTI is confirmed. - Order urine analysis - Review results and consider antibiotics if UTI is confirmed Neuropathy Chronic neuropathy with no new symptoms or changes. No leg swelling observed. - Continue current management General Health Maintenance Patient previously on Januvia, now on Jardiance. Noted Jardiance can cause hematuria. - Monitor for adverse effects from Jardiance Follow-up - Follow-up appointment to review test results and determine next steps - Consider physical therapy referral if imaging and tests are inconclusive. Acute right flank pain (Primary) - XR RIBS UNILATERAL W/PA CHEST MINIMUM 3 VIEWS - XR ABDOMEN 1 VIEW - US RENAL; Future; Expected date: 10/27/2024 - CULTURE, URINE, QUANTITATIVE ADDENDUM: U/s with normal kidneys, no stones. Persistent bladder wall thickening similar to CT urogram 02/2024, however both times bladder under distended. Wrap-Up Time: I spent a total of 20-29 minutes (exact time 24 mins) on the date of service in preparation, delivery, and documentation of the care provided to Alexi Freeman excluding any time spent in the performance of separately billed services. Text in this note was generated using an ambient documentation service. I discussed the use of a device to record and summarize our discussion today. All persons present during the encounter consented to its use. documented in this encounter Nursing Notes * Zulema Fang, MED ASSIST - 10/27/2024 2:46 PM EST Chief Complaint Patient presents with Acute Pain in leg and back, mostly right side x 2 weeks Pt also c/o frequent urination, no dysuria, has hx of prostate cancer. documented in this encounter Miscellaneous Notes * Result Encounter Note - Calvin Resendez MD - 10/28/2024 5:16 PM EST No UTI * Result Encounter Note - Calvin Resendez MD - 10/28/2024 6:40 AM EST Unremarkable xray. Await ultrasound for kidney. documented in this encounter Plan of Treatment Upcoming Encounters Date Type Department Care Team (Late st Contact Info) Description 12/22/2024 7:45 AM EST Office Visit Ophthalmology, [place] [address] [place] [address] Micah Aquino MD [address] [place] [address] 03/16/2025 7:00 AM EDT Office Visit [facility] [address] [place] [address] Calvin Resendez MD [address] [place] [address] Health Maintenance Due Date Last Done Comments [...] Additional history exists CKD HGB USE SMARTSET 39770 09/09/202509/09, 03/28/2023, 01/05/2023, Additional history exists CKD PHOS USE SMARTSET 24504 09/09/202508/20, 02/05/2024, 07/16/2023, Additional history exists Depression [...] Name Priority Date/Time Associated Diagnosis Comments XR ABDOMEN 1 VIEW Routine 10/27/2024 3:4 0 PM EST Acute right flank pain XR RIBS UNILATERAL W/PA CHEST MINIMUM 3 VIEWS Routine 10/27/2024 3:40 PM EST Acute right flank pain CULTURE, URINE, QUANTITATIVE Routine 10/27/2024 3:11 PM EST Acute right flank pain documented [...] bladder. COMPARISON: XR ABDOMEN 1 VIEW, ACC: [id number], dated 2024-10-27 15:47:50; CT UROGRAPHY W WO CONTRAST, ACC: [id number], dated 2024-03-17 14:56:45; XR ABDOMEN 1 VIEW, ACC: [id number], dated 2022-07-12 12:27:53 FINDINGS: Kidneys: Renal size [...] bladder. COMPARISON: XR ABDOMEN 1 VIEW, ACC: [id number], dated 2024-10-27 15:47:50; CT UROGRAPHY W WO CONTRAST, ACC: [id number], dated 2024-03-17 14:56:45; XR ABDOMEN 1 VIEW, ACC: [id number], dated 2022-07-12 12:27:53 FINDINGS: Kidneys: Renal size [...] Resendez MD RAD ULTRASOUND Final Res ult * XR ABDOMEN 1 VIEW (10/27/2024 3:40 PM EST) Anatomical Region Laterality Modality Abdomen, Pelvis Computed Radiogr aphy 10/27/2024 7:35 PM EST Impressions 10/27/2024 7:33 PM EST IMPRESSION 1. Non-specific bowel gas pattern. No compelling radiographic evidence of high grade bowel obstruction. 2. No appreciable nephrolithiasis. 3. No acute displaced rib fracture identified. 4. No compelling evidence of pneumonia or pulmonary edema. 5. Additional findings as above. Narrative 10/27/2024 7:33 PM EST EXAM XR ABDOMEN 1 VIEW; XR RIBS UNILATERAL W/PA CHEST MINIMUM 3 VIEWS-10/27/2024 3:40 pm HISTORY 2 weeks right flank pain, rule out rib fracture or kidney stone COMPARISON CT UROGRAPHY W WO CONTRAST, ACC: [id number], dated 2024-03-17 14:56:45; MRI PELVIS WO CONTRAST, ACC: [id number], dated 2023-03-17 10:47:35; XR ABDOMEN 1 VIEW, ACC: [id number], dated 2022-07-12 12:27:53 TECHNIQUE Radiography of the abdomen and chest. XR ABDOMEN 1 VIEW; XR RIBS UNILATERAL W/PA CHEST MINIMUM 3 VIEWS FINDINGS Support equipment: none present Non-specific bowel gas pattern. No compelling radiographic evidence of high grade bowel obstruction. No appreciable pneumoperitoneum, pneumatosis or portal venous air. Please note that CT may be more sensitive/accurate for detection of intra- abdominal air. Moderate colonic stool burden. Regional osseous structures are intact. Visualized lung bases are unremarkable. Please note that many acute abdominal pathologies may not be detected on radiography. These include but are not limited to, gonadal torsion, hydronephrosis, pyelonephritis, appendicitis, abscess, ascites, acute aortic injury and pancreatitis. The need for additional imaging, such as cross sectional examination, should be determined based on clinical factors. No acute displaced rib fracture identified. Lungs are clear and without acute focal consolidation or compelling evidence of hydrostatic pulmonary edema. There is no pneumothorax or pleural effusion. Lumbar fusion hardware as before. No appreciable nephrolithiasis. Procedure Note Pankaj Malagon MD - 10/27/2024 EXAM XR ABDOMEN 1 VIEW; XR RIBS UNILATERAL W/PA CHEST MINIMUM 3 VIEWS-43:40 pm HISTORY 2 weeks right flank pain, rule out rib fracture or kidney stone COMPARISON CT UROGRAPHY W WO CONTRAST, ACC: [id number], dated 2024-03-17 14:56:45; MRI PELVIS WO CONTRAST, ACC: [id number], dated 2023-03-17 10:47:35; XR ABDOMEN 1 VIEW, ACC: [id number], dated 2022-07-12 12:27:53 TECHNIQUE Radiography of the abdomen and chest. XR ABDOMEN 1 VIEW; XR RIBSUNILATERAL W/PA CHEST MINIMUM 3 VIEWS FINDINGS Support equipment: none present Non-specific bowel gas pattern. No compelling radiographic evidence ofhigh grade bowel obstruction. No appreciable pneumoperitoneum, pneumatosisor portal venous air. Please note that CT may be more sensitive/accuratefor detection of intra- abdominal air. Moderate colonic stool burden.Regional osseous structures are intact. Visualized lung bases areunremarkable. Please note that many acute abdominal pathologies may not be detected onradiography. These include but are not limited to, gonadal torsion,hydronephrosis, pyelonephritis, appendicitis, abscess, ascites, acuteaortic injury and pancreatitis. The need for additional imaging, such ascross sectional examination, should be determined based on clinicalfactors. No acute displaced rib fracture identified. Lungs are clear and withoutacute focal consolidation or compelling evidence of hydrostatic pulmonaryedema. There is no pneumothorax or pleural effusion. Lumbar fusionhardware as before. No appreciable nephrolithiasis. IMPRESSION IMPRESSION 1. Non-specific bowel gas pattern. No compelling radiographic evidence ofhigh grade bowel obstruction. 2. No appreciable nephrolithiasis. 3. No acute displaced rib fracture identified. 4. No compelling evidence of pneumonia or pulmonary edema. 5. Additional findings as above. us Calvin Resendez MD RADIOLOGY ([facility]) F inal Result * XR RIBS UNILATERAL W/PA CHEST MINIMUM 3 VIEWS (10/27/2024 3:40 PM EST) Anatomical Region Laterality Modality Chest Computed Radiogr aphy 10/27/2024 7:35 PM EST Impressions 10/27/2024 7:33 PM EST IMPRESSION 1. Non-specific bowel gas pattern. No compelling radiographic evidence of high grade bowel obstruction. 2. No appreciable nephrolithiasis. 3. No acute displaced rib fracture identified. 4. No compelling evidence of pneumonia or pulmonary edema. 5. Additional findings as above. Narrative 10/27/2024 7:33 PM EST EXAM XR ABDOMEN 1 VIEW; XR RIBS UNILATERAL W/PA CHEST MINIMUM 3 VIEWS-10/27/2024 3:40 pm HISTORY 2 weeks right flank pain, rule out rib fracture or kidney stone COMPARISON CT UROGRAPHY W WO CONTRAST, ACC: [id number], dated 2024-03-17 14:56:45; MRI PELVIS WO CONTRAST, ACC: [id number], dated 2023-03-17 10:47:35; XR ABDOMEN 1 VIEW, ACC: [id number], dated 2022-07-12 12:27:53 TECHNIQUE Radiography of the abdomen and chest. XR ABDOMEN 1 VIEW; XR RIBS UNILATERAL W/PA CHEST MINIMUM 3 VIEWS FINDINGS Support equipment: none present Non-specific bowel gas pattern. No compelling radiographic evidence of high grade bowel obstruction. No appreciable pneumoperitoneum, pneumatosis or portal venous air. Please note that CT may be more sensitive/accurate for detection of intra- abdominal air. Moderate colonic stool burden. Regional osseous structures are intact. Visualized lung bases are unremarkable. Please note that many acute abdominal pathologies may not be detected on radiography. These include but are not limited to, gonadal torsion, hydronephrosis, pyelonephritis, appendicitis, abscess, ascites, acute aortic injury and pancreatitis. The need for additional imaging, such as cross sectional examination, should be determined based on clinical factors. No acute displaced rib fracture identified. Lungs are clear and without acute focal consolidation or compelling evidence of hydrostatic pulmonary edema. There is no pneumothorax or pleural effusion. Lumbar fusion hardware as before. No appreciable nephrolithiasis. Procedure Note Pankaj Malagon MD - 10/27/2024 EXAM XR ABDOMEN 1 VIEW; XR RIBS UNILATERAL W/PA CHEST MINIMUM 3 VIEWS-43:40 pm HISTORY 2 weeks right flank pain, rule out rib fracture or kidney stone COMPARISON CT UROGRAPHY W WO CONTRAST, ACC: [id number], dated 2024-03-17 14:56:45; MRI PELVIS WO CONTRAST, ACC: [id number], dated 2023-03-17 10:47:35; XR ABDOMEN 1 VIEW, ACC: [id number], dated 2022-07-12 12:27:53 TECHNIQUE Radiography of the abdomen and chest. XR ABDOMEN 1 VIEW; XR RIBSUNILATERAL W/PA CHEST MINIMUM 3 VIEWS FINDINGS Support equipment: none present Non-specific bowel gas pattern. No compelling radiographic evidence ofhigh grade bowel obstruction. No appreciable pneumoperitoneum, pneumatosisor portal venous air. Please note that CT may be more sensitive/accuratefor detection of intra- abdominal air. Moderate colonic stool burden.Regional osseous structures are intact. Visualized lung bases areunremarkable. Please note that many acute abdominal pathologies may not be detected onradiography. These include but are not limited to, gonadal torsion,hydronephrosis, pyelonephritis, appendicitis, abscess, ascites, acuteaortic injury and pancreatitis. The need for additional imaging, such ascross sectional examination, should be determined based on clinicalfactors. No acute displaced rib fracture identified. Lungs are clear and withoutacute focal consolidation or compelling evidence of hydrostatic pulmonaryedema. There is no pneumothorax or pleural effusion. Lumbar fusionhardware as before. No appreciable nephrolithiasis. IMPRESSION IMPRESSION 1. Non-specific bowel gas pattern. No compelling radiographic evidence ofhigh grade bowel obstruction. 2. No appreciable nephrolithiasis. 3. No acute displaced rib fracture identified. 4. No compelling evidence of pneumonia or pulmonary edema. 5. Additional findings as above. us Calvin Resendez MD RADIOLOGY ([facility]) F inal Result * CULTURE, URINE, QUANTITATIVE (10/27/2024 3:11 PM EST) Culture Growth No significant growth 10/28/2024 4:05 PM EST [facility] Urine Urine specimen obtained by clean catch procedure / Unknown Non-blood Collection / Unknown 10/27/2024 3:11 PM EST 10/27/2024 4:34 PM EST Calvin Resendez MD LAB [facility] - GENERAL ORDER ESTEFANÍA Final Result [facility] [address] [place] [address] documented in this encounter Visit Diagnoses Diagnosis Acute right flank pain- Primary Abdominal pain, unspecified site Acute right flank pain Abdominal pain, unspecified site documented in this encounter Care Teams Parking Officer Relationship Specialty Start Date End Date Calvin Resendez MD [address] [place] [address] PCP - General Family Medicine 12/12/21 documented as of this encounter
--- OUTSIDE RECORDS SUMMARY | 2025-02-13 20:45 | External Medical Summary | Summary of Care ---
Author Name Unknown Organization [facility] Address [address] [facility] [place] [address] Phone [phone] Care Team Providers Care Toolroom Attendant Name Role Phone Calvin Resendez MD Primary Care Provider [phone] Encounter Details Date Type Department Care Team (Latest Contact Info) Description 10/27/2024 3:16 PM EST - 10/27/2024 11:59 PM [facility] Hospital Encounter Radiology, [place] [address] [facility] [place] [address] Arrived Discharge Disposition: Home - Self Care Allergies Active Allergy Reactions Criticality Noted Date Comments Bee Venom 07/24/2014 documented as of this encounter (statuses as of 10/28/2024) Medications EPIPEN 2-GRZEGORZ 0.3 MG/0.3ML IJ SOAJ [...] as of this encounter (statuses as of 10/28/2024) Active Problems Problem Noted Date Diagnosed Date Type 2 diabetes mellitus wit h stage 3 chronic kidney disease, without long-term current use of insulin 12/01/2020 Hypertensive kidney disease with stage 3a chronic kidney disease 09/27/2020 Overview: Per CKD protocol Spinal stenosis of lumbar re 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 Anemia of chronic disease 11/03/2016 Status post lumbar spinal fusion 08/13/2015 Type 2 diabetes mellitus wit h hemoglobin A1c goal of less than 7.0% 07/24/2014 Overview (03/14/2016): ICD-10 update of inactive term HTN, goal below 130/80 07/24/2014 Hyperlipidemia 07/24/2014 Displacement of lumbar inter vertebral disc without myelopathy 05/30/2011 documented as of this encounter (statuses as of 10/28/2024) Resolved Problems Problem Noted Date Diagnosed Date [...] as of this encounter (statuses as of 10/28/2024) Immunizations Name Administration Dates Next Due COVID-19 mRNA, LNP-s, No Pre serve, 2-Dose Series ([employer]) 09/24/2021,02/07/2021,01/12/2021 COVID-19, MRNA-LNP, PF, 30 M CG/0.3 mL, 12 YRS AND ABOVE, IM [facility] 09/09/2024 Pneumococcal Conjugate Vacc, 13 Valent [...] Care Team (Late st Contact Info) Description 10/29/2024 2:00 PM EST Appointment Radiology, [address] [place] [address] 12/22/2024 7:45 AM EST Office Visit Ophthalmology, [place] [address] [place] [address] [facility] [place] [address] 03/16/2025 7:00 AM EDT Office Visit Family Practice, [place] [address] [phone] Calvin Resendez MD 21 [facility] [place] [address] Health Maintenance Due Date Last Done Comments [...] Additional history exists CKD HGB USE SMARTSET 20653 09/09/202509/09, 03/28/2023, 01/05/2023, Additional history exists CKD PHOS USE SMARTSET 41855 09/09/202508/20, 02/05/2024, 07/16/2023, Additional history exists Depression [...] 3:40 PM EST Acute right flank pain documented in this encounter Results * XR ABDOMEN 1 VIEW (10/27/2024 3:40 [...] COMPARISON CT UROGRAPHY W WO CONTRAST, ACC: [id number], dated 2024-03-17 14:56:45; MRI PELVIS WO CONTRAST, ACC: [id number], dated 2023-03-17 10:47:35; XR ABDOMEN 1 VIEW, ACC: [id number], dated 2022-07-12 12:27:53 TECHNIQUE Radiography of the [...] COMPARISON CT UROGRAPHY W WO CONTRAST, ACC: [id number], dated 2024-03-17 14:56:45; MRI PELVIS WO CONTRAST, ACC: [id number], dated 2023-03-17 10:47:35; XR ABDOMEN 1 VIEW, ACC: [id number], dated 2022-07-12 12:27:53 TECHNIQUE Radiography of the [...] as above. us Calvin Resendez MD RADIOLOGY ([facility]) F inal Result * XR [...] COMPARISON CT UROGRAPHY W WO CONTRAST, ACC: [id number], dated 2024-03-17 14:56:45; MRI PELVIS WO CONTRAST, ACC: [id number], dated 2023-03-17 10:47:35; XR ABDOMEN 1 VIEW, ACC: [id number], dated 2022-07-12 12:27:53 TECHNIQUE Radiography of the [...] COMPARISON CT UROGRAPHY W WO CONTRAST, ACC: [id number], dated 2024-03-17 14:56:45; MRI PELVIS WO CONTRAST, ACC: [id number], dated 2023-03-17 10:47:35; XR ABDOMEN 1 VIEW, ACC: [id number], dated 2022-07-12 12:27:53 TECHNIQUE Radiography of the [...] MD RADIOLOGY ([facility]) F inal Result documented in this encounter Care Teams Toolroom Attendant Relationship Specialty Start Date End Date Calvin Resendez MD [address] [facility] [place] [id number] PCP - General Family Medicine 12/12/21 documented as of this encounter
--- OUTSIDE RECORDS SUMMARY | 2025-02-13 20:45 | External Medical Summary ---
Author Name Unknown Address Unknown Organization K01:[facility] [address] [facility] [place] [address] Laboratory Report Ordering Provider Test Date Status TANI GHOSH 09/09/2024 10:55:06 Final Observation Date Value Abnormality Reference (Units ) Status WBC, Total 09/09/2024 10:55:06 7.95 4.00-10.80 (K/uL) Final RBC 09/09/2024 10:55:06 4.70 4.50-5.25 (M/uL) Final Hemoglobin 09/09/2024 10:55:06 14.6 14.0-16.8 (g/dL) Final HCT 09/09/2024 10:55:06 43.7 40.0-48.4 (%) Final MCV 09/09/2024 10:55:06 93.0 82.0-99.5 (fL) Final MCH 09/09/2024 10:55:06 31.1 27.0-34.0 (pg) Final MCHC 09/09/2024 10:55:06 33.4 32.0-36.0 (g/dL) Final RDW 09/09/2024 10:55:06 13.1 11.5-15.5 (%) Final Platelets 09/09/2024 10:55:06 199 140-400 (K/uL) Final MPV 09/09/2024 10:55:06 10.5 6.6-11.1 (fL) Final Nucleated erythrocytes/100 leukocytes [Ratio] in Blood by Automated count 09/09/2024 10:55:06 0 <=0 (/100 WBCs) Final Performing Location [facility] [place] [facility] [address] [place] [address]
--- OUTSIDE RECORDS SUMMARY | 2025-02-13 20:45 | External Medical Summary | Summary of Care ---
Author Name Unknown Organization [facility] Address [address] [place] [address] Phone [phone] Care Team Providers Care Station Air Traffic Control Specialist Name Role Phone Calvin Resendez MD Primary Care Provider [phone] Reason for Visit * Reason Onset Date Comments [facility] 11/04/2024 Encounter Details Date Type Department Care Team (Late st Contact Info) Description 11/04/2024 Telephone [facility] [address], [place] [id number] Program, Stair [address] [place] [address] [facility] Allergies Active Allergy Reactions Criticality [...] prostate cancer 12/27/2018 Overview (01/05/2023): Follows with [facility] Anemia of chronic disease 11/03/2016 Status [...] mRNA, LNP-s, No Pre serve, 2-Dose Series ([employer]) 09/24/2021,02/07/2021,01/12/2021 COVID-19, MRNA-LNP, PF, 30 M CG/0.3 [...] (System to Track Abnormalities of Importance Reliably) [phone] * Telephone Encounter - Pamela Torres LPN [...] bladder. COMPARISON: XR ABDOMEN 1 VIEW, ACC: [id number], dated 2024-10-27 15:47:50; CT UROGRAPHY W WO CONTRAST, ACC: [id number], dated 2024-03-17 14:56:45; XR ABDOMEN 1 VIEW, ACC: [id number], dated 2022-07-12 12:27:53 FINDINGS: Kidneys: Renal size [...] Description 11/22/2024 12:30 PM EST App[address] Radiology[address] [place] [address] 11/22/2024 1:15 PM EST App[address]ment Radiology, [address] [place] [address] 12/22/2024 7:45 AM EST Office Visit Ophthalmology, [place] [address] [place] [address] Micah Aquino MD 21 [facility] [place] [address] 03/16/2025 7:00 AM EDT Office Visit Family Practice, [place] [address] [place] [phone] [facility] [address] Health Maintenance Due Date Last Done Comments [...] Additional history exists CKD HGB USE SMARTSET 55235 09/09/202509/09, 03/28/2023, 01/05/2023, Additional history exists CKD PHOS USE SMARTSET 77838 09/09/202508/20, 02/05/2024, 07/16/2023, Additional history exists Depression [...] filedocumented as of this encounter Care Teams Station Air Traffic Control Specialist Relationship Specialty Start Date End Date Calvin Resendez MD [address] [place] [phone] PCP - General Family Medicine 12/12/21 documented as of this encounter
--- OUTSIDE RECORDS SUMMARY | 2025-02-13 20:45 | External Medical Summary ---
Author Name Unknown Address Unknown Organization K01:[facility] - [address] [place] [address] Laboratory Report Ordering Provider Test Date Status ATNI GHOSH 10/27/2024 15:11:17 Final Observation Date Value Abnormality Reference (Units) Status Bacteria identified in Specimen by Culture 10/27/2024 15:11:17 No significant growth Final Test: Culture, Urine, Quanti tative
Specimen Source: Urine, Clean Catch
Specimen Type: Urine
Specimen Date: 10/27/2024 1511
Result Date: 10/28/2024 1605
Result Status: Final result
Resulting Lab: [facility]
[address]
[place] [address]

CULTURE

No significant growth

null Performing Location [facility] - [address] [place] [address]
--- OUTSIDE RECORDS SUMMARY | 2025-02-13 20:45 | External Medical Summary ---
Author Name Unknown Address Unknown Organization K01:[facility] [place] [address] [facility] [address] Laboratory Report Ordering Provider Test Date Status TANI GHOSH 09/09/2024 10:55:06 Final Observation Date Value Abnormality Reference (Units ) Status HbA1C 09/09/2024 10:55:06 7.5 Above high normal 4. 0-5.6 (%) Final The use of HbA1c to monitor glycemic status is based on normal hemoglobin and HbA composition. This test should not be used in patients with abnormal hemoglobin that affects the half life of the red blood cell or the in vivo glycation rates. Glucose, estimated average 09/09/2024 10:55:06 169 Above high normal <126 (mg/dL) Seng mancilla Performing Location [facility] - [address] [place] [address]
--- OUTSIDE RECORDS SUMMARY | 2025-02-13 20:45 | External Medical Summary | Summary of Care ---
Author Name Unknown Organization [facility] [address] [facility] [place] [address] Phone [phone] Care Team Providers Care Fusing Machine Operator Name Role Phone Calvin Resendez MD Primary Care Provider [phone] Reason for Visit * Reason Comments Outpatient Testing Encounter Details Date Type Department Care Team (Late st Contact Info) Description 09/09/2024 10:50 AM EDT Laboratory Laboratory, [place] [address] [place] [address] [place], [facility] [address] [place] [address] Type 2 diabetes mellitus with stage 3a chronic kidney disease, without long-term current use of insulin ([facility]) Allergies Active Allergy Reactions Criticality Noted Date Comments Bee Venom 07/24/2014 documented as of this encounter (statuses as of 09/09/2024) Medications Medication Sig Dispensed Refills Start Date End Date Status EPIPEN 2-GRZEGORZ 0.3 MG/0.3ML IJ SOAJ as needed Active BD Pen Needle Short U/F 31G X 8 MM (Insulin Pen Needle)Indications: Type 2 diabetes mellitus with hemoglobin A1c goal of less than 7.0% ([facility]) USE DIRECTED WITH VICTOZA 100 Each 3 01/18/2022 Active metFORMIN HCl 1000 MG Oral Tablet (Glucophage)Indicat ions:Type 2 diabetes mellitus with hemoglobin A1c goal of less than 7.0% ([facility]) take 1 tablet by mouth twice a day 180 Tablet 1 08/01/2023 Active Ozempic (0.25 or 0.5 MG/DOSE) 2 [...] as of this encounter (statuses as of 09/09/2024) Active Problems Problem Noted Date Diagnosed Date Type 2 diabetes mellitus wit h stage 3 chronic kidney disease, without long-term current use of insulin 12/01/2020 Hypertensive kidney disease with stage 3a chronic kidney disease 09/27/2020 Overview: Per CKD protocol Spinal stenosis of lumbar re gion without neurogenic claudication 08/28/2019 History of prostate cancer 12/27/2018 Overview: Follows with [facility] Anemia of chronic disease 11/03/2016 Status post lumbar spinal fusion 08/13/2015 Type 2 diabetes mellitus wit h hemoglobin A1c goal of less than 7.0% 07/24/2014 Overview: ICD-10 update of inactive term HTN, goal below 130/80 07/24/2014 Hyperlipidemia 07/24/2014 Displacement of lumbar inter vertebral disc without myelopathy 05/30/2011 documented as of this encounter (statuses as of 09/09/2024) Resolved Problems Problem Noted Date Diagnosed Date [...] as of this encounter (statuses as of 09/09/2024) Immunizations Name Administration Dates Next Due COVID-19 mRNA, LNP-s, No Pre serve, 2-Dose Series ([employer]) 09/24/2021,02/07/2021,01/12/2021 COVID-19, MRNA-LNP, 24-25, P R, 30MCG/0.3ML, IM, 12YRS AND ABOVE ([employer]-Comirnaty) 09/09/2024 Pneumococcal Conjugate Vacc, 13 Valent (Prevnar) [...] 12/22/2024 7:45 AM EST Office Visit Ophthalmology, [place] [address] Micah Aquino MD [address] [place] [address] 03/16/2025 7:00 AM EDT Office Visit Family [facility], [place] [address] [place] [phone] Calvin Resendez MD [address] [place] [address] Pending Results Name Type Priority Associated Diagnoses Date /Time HEMOGLOBIN A1C Lab Routine Type 2 diabetes mellitus with stage 3a chronic kidney disease, without long-term current use of insulin ([facility]) 09/09/2024 10:55 AM EDT RENAL FUNCTION PANEL Lab Routine Type 2 diabetes mellitus with stage 3a chronic kidney disease, without long-term current use of insulin ([facility]) 09/09/2024 10:55 AM EDT CBC Lab Routine Type 2 diabetes mellitus with stage 3a chronic kidney disease, without long-term current use of insulin (HCC) 09/09/2024 10:55 AM EDT Health Maintenance Due Date Last Done Comments DISCUSS TOBACCO CESSATION (REFER TO SMARTSET #4261) 11/03/2017 11/03/2016 (Discussed) Adult Wellness Visit 06/12/2023 06/12/2022 CKD HGB USE SMARTSET 75959 03/28/202403/28, 01/05/2023, 06/13/2022, Additional history exists GFR 08/07/2024 02/05/2024, 06/20, 01/05/2023, Additional history exists HbA1c 08/07/2024 02/05/2024, 06/20, 01/05/2023, Additional history exists B-12 11/14/2024 11/14/2023, 12/20, 08/28/2019, Additional history exists CKD PHOS USE SMARTSET 69726 02/04/202501/17, 07/16/2023, 01/05/2023, Additional history exists Albumin/Creatinine Ratio 02/07/2025 024, 01/05/2023, 06/13/2022, Additional history exists Diabetic Eye Exam 06/16/2025 06/16/2024, , 04/11/2023, Additional history exists Depression Screening 09/09/2025 09/09/2024 [...] Diagnoses Diagnosis Type 2 diabetes mellitus with stage 3a chronic kidney disease, without long-term current use of insulin (HCC) documented in this encounter Care Teams Fusing Machine Operator Relationship Specialty Start Date End Date Calvin Resendez MD [address] [place] [address] PCP - General Family Medicine 12/12/21 documented as of this encounter
--- OUTSIDE RECORDS SUMMARY | 2025-02-13 20:45 | External Medical Summary | Summary of Care ---
Author Name Unknown Organization [facility] Address [address] [facility] [place] [address] Phone [phone] Care Team Providers Care Game Operator Name Role Phone Calvin Resendez MD Primary Care Provider [phone] Encounter Details Date Type Department Care Team (Latest Contact Info) Description 09/09/2024 10:49 AM EDT - 09/09/2024 11:59 PM EDT Hospital Encounter Radiology, [address] [place] [address] Arrived Discharge Disposition: Home - Self Care Allergies Active Allergy Reactions Criticality Noted Date Comments Bee Venom 07/24/2014 documented as of this encounter (statuses as of 09/10/2024) Medications Medication Sig Dispensed Refills Start Date [...] as of this encounter (statuses as of 09/10/2024) Active Problems Problem Noted Date Diagnosed Date Type 2 diabetes mellitus wit h stage 3 chronic kidney disease, without long-term current use of insulin 12/01/2020 Hypertensive kidney disease with stage 3a chronic kidney disease 09/27/2020 Overview: Per CKD protocol Spinal stenosis of lumbar re gion without neurogenic claudication 08/28/2019 History of prostate cancer 12/27/2018 Overview: Follows with [facility] Anemia of chronic disease 11/03/2016 Status post lumbar spinal fusion 08/13/2015 Type 2 diabetes mellitus wit h hemoglobin A1c goal of less than 7.0% 07/24/2014 Overview: ICD-10 update of inactive term HTN, goal below 130/80 07/24/2014 Hyperlipidemia 07/24/2014 Displacement of lumbar inter vertebral disc without myelopathy 05/30/2011 documented as of this encounter (statuses as of 09/10/2024) Resolved Problems Problem Noted Date Diagnosed Date [...] as of this encounter (statuses as of 09/10/2024) Immunizations Name Administration Dates Next Due COVID-19 mRNA, LNP-s, No Pre serve, 2-Dose Series ([employer]) 09/24/2021,02/07/2021,01/12/2021 COVID-19, MRNA-LNP, 24-25, P R, 30MCG/0.3ML, IM, 12YRS AND ABOVE ([employer]-Comirnat) 09/09/2024 Pneumococcal Conjugate Vacc, 13 Valent (Prevnar) [...] 12/22/2024 7:45 AM EST Office Visit Ophthalmology, [place] [address] [place] [address] Micah Aquino MD [address] [place] [address] 03/16/2025 7:00 AM EDT Office Visit Family [facility], [place] [address] [place] [phone] Calvin Resendez MD [address] [place] [address] Pending Results Name Type Priority Associated Diagnoses Date /Time XR HIP BILAT MIN 5 VIEWS INCLUDING AP OF PELVIS Medical Imaging Routine Bilateral hip pain 09/09/2024 11:00 AM EDT Health Maintenance Due Date Last [...] Additional history exists CKD HGB USE SMARTSET 01376 09/09/202509/09, 03/28/2023, 01/05/2023, Additional history exists CKD PHOS USE SMARTSET 21878 09/09/202508/20, 02/05/2024, 07/16/2023, Additional history exists Depression [...] filedocumented as of this encounter Care Teams Game Operator Relationship Specialty Start Date End Date Calvin Resendez MD 21 [facility] [place] [phone] PCP - General Family Medicine 12/12/21 documented as of this encounter
--- OUTSIDE RECORDS SUMMARY | 2025-02-13 20:45 | External Medical Summary | Summary of Care ---
Author Name Unknown Organization [facility] Address [address] [facility] [place] [address] Phone [phone] Care Team Providers Care Machine Crater Name Role Phone Calvin Resendez MD Primary Care Provider [phone] Encounter Details Date Type Department Care Team (Late st Contact Info) Description 11/06/2024 Orders Only PATIENT PORTAL DO NOT DELETE THIS DEPT USED BY [place] [id number] Allergies Active Allergy Reactions Criticality Noted Date Comments Bee Venom 07/24/2014 documented as of this encounter (statuses as of 11/06/2024) Medications EPIPEN 2-GRZEGORZ 0.3 MG/0.3ML IJ SOAJ [...] as of this encounter (statuses as of 11/06/2024) Active Problems Problem Noted Date Diagnosed Date [...] prostate cancer 12/27/2018 Overview (01/05/2023): Follows with [facility] Anemia of chronic disease 11/03/2016 Status post lumbar spinal fusion 08/13/2015 Type 2 diabetes mellitus wit h hemoglobin A1c goal of less than 7.0% 07/24/2014 Overview (03/14/2016): ICD-10 update of inactive term HTN, goal below 130/80 07/24/2014 Hyperlipidemia 07/24/2014 Displacement of lumbar inter vertebral disc without myelopathy 05/30/2011 documented as of this encounter (statuses as of 11/06/2024) Resolved Problems Problem Noted Date Diagnosed Date [...] as of this encounter (statuses as of 11/06/2024) Immunizations Name Administration Dates Next Due COVID-19 mRNA, LNP-s, No Pre serve, 2-Dose Series ([employer]) 09/24/2021,02/07/2021,01/12/2021 COVID-19, MRNA-LNP, PF, 30 M CG/0.3 [...] Info) Description 11/22/2024 12:30 PM EST Appointment Radiology[address] [place] [address] 11/22/2024 1:15 PM EST Hospital Encounter [address]iology[address] [place] [address] 12/22/2024 7:45 AM EST Office Visit Ophthalmology, [place] [address] [place] [address] Micah Aquino MD [address] [place] [address] 03/16/2025 7:00 AM EDT Office Visit Family Practice, [place] [address] [place] [phone] Calvin Resendez MD [address] [place] [address] Health Maintenance Due Date Last Done Comments DISCUSS TOBACCO CESSATION (REFER TO SMARTSET #5105) 11/03/2017 11/03/2016 (Discussed) Adult Wellness Visit 06/12/2023 06/12/2022 B-12 11/14/2024 11/14/2023, 12/20, 08/28/2019, Additional history exists Albumin/Creatinine Ratio 02/07/2025 024, 01/05/2023, 06/13/2022, Additional history exists GFR 03/10/2025 09/09/2024, 01/17, 07/16/2023, Additional history exists HbA1c 03/10/2025 09/09/2024, 01/17, 07/16/2023, Additional history exists Diabetic Eye Exam 06/16/2025 06/16/2024, , 04/11/2023, Additional history exists CKD HGB USE SMARTSET 70466 09/09/202509/09, 03/28/2023, 01/05/2023, Additional history exists CKD PHOS USE SMARTSET 16140 09/09/202508/20, 02/05/2024, 07/16/2023, Additional history exists Depression [...] filedocumented as of this encounter Care Teams Machine Crater Relationship Specialty Start Date End Date Calvin Resendez MD [address] [place] [phone] PCP - General Family Medicine 12/12/21 documented as of this encounter
--- OUTSIDE RECORDS SUMMARY | 2025-02-13 20:45 | External Medical Summary | Summary of Care ---
Author Name Unknown Organization [facility] Address [address] [facility] [place] [address] Phone [phone] Care Team Providers Care Fixture Designer Name Role Phone Calvin Resendez MD Primary Care Provider [phone] Reason for Visit * Reason Onset Date Comments Follow Up Medication Administration 09/09/2024 Flu an d/or Pneumo Inj Encounter Details Date Type Department Care Team (Late st Contact Info) Description 09/09/2024 9:20 AM EDT Office Visit [facility] [place] [phone] Calvin Resendez MD [address] [place] [address] Bilateral hip pain*; Risk and functional assessment; Need for prophylactic vaccination and inoculation against influenza; Type 2 diabetes mellitus with stage 3a chronic kidney disease, without long-term current use of insulin ([facility]); Need for COVID-19 vaccine; HTN, goal below 130/80 Allergies Active Allergy [...] hemoglobin A1c goal of less than 7.0% ([facility]) USE DIRECTED WITH VICTOZA 100 Each 3 [...] of prostate cancer 12/27/2018 Overview: Follows with [facility] Anemia of chronic disease 11/03/2016 Status post [...] mRNA, LNP-s, No Pre serve, 2-Dose Series ([employer]) 09/24/2021,02/07/2021,01/12/2021 COVID-19, MRNA-LNP, 24-25, P R, 30MCG/0.3ML, IM, 12YRS AND ABOVE ([employer]) 09/09/2024 Pneumococcal Conjugate Vacc, 13 Valent (Prevnar) [...] Sign Reading Time Taken Comments Blood Pressure 156/84 09/09/2024 9:50 AM EDT man ual Pulse 62 09/09/2024 9:41 AM EDT Temperature 35.9 C (96.7 F) 09/09/2024 9:41 AM ED T Respiratory Rate 16 09/09/2024 9:41 AM EDT Oxygen Saturation 99% 09/09/2024 9:41 AM EDT Inhaled Oxygen Concentration - - Weight 91.7 kg (202 lb 1.6 oz) 09/09/2024 9:41 A M EDT Height 180.3 cm (5' 11") 09/09/2024 9:41 AM EDT Body Mass Index 28.19 09/09/2024 9:41 AM EDT documented in this encounter Patient Instructions * Patient Instructions* Shirley Scott, MED ASSIST - 09/09/2024 9:41 AM EDT Patient Instructions - Fall Prevention (This education is for all patients over 65 regardless of symptoms) Remember to take your current medications as prescribed. In order to prevent falls, you are encouraged to: Exercise Utilize assistive/adaptive devices Avoid multifocal lenses when walking Avoid hazards in home Maintain a regular toileting schedule Any questions please contact our office. Preventing Falls in the Home (This education is for all patients over 65 regardless of symptoms) As you get older, falls are more likely. Thats because your reaction time slows. Your muscles and joints may also get stiffer, making them less flexible. Illness, medications, and vision changes can also affect your balance. A fall could leave you unable to live on your own. To make your home safer, follow these tips: Floors Put nonskid pads under area rugs Remove throw rugs Replace worn floor coverings Tack carpets firmly to each step on carpeted stairs. Put nonskid strips on the edges of uncarpeted stairs Keep floors and stairs free of clutter and cords Arrange furniture so there are clear pathways Clean up any spills right away Bathrooms Install grab bars in the tub or shower Apply nonskid strips or put a nonskid rubber mat in the tub or shower Sit on a bath chair to bathe Use bathmats with nonskid backing Lighting Keep a flashlight in each room Put a nightlight along the pathway between the bedroom and the bathroom Kim Patient Education Copyright 2008 - 2010 Kim except where otherwise noted Preventing Falls: Exercises to Improve Balance, Flexibility, Strength, and Staying Power (This education is for all patients over 65 regardless of symptoms) Certain types of exercises may help make you less likely to fall. Try the ones below. Or do other exercises that your healthcare provider suggests. Depending on your health, you may need to start slowly. Dont let that stop you. Even small amounts of exercise can help you. Be sure to talk to yourhealthcare provider before starting any exercise program. Improve Balance Many types of exercise can help improve balance. Michael chi and yoga are good examples. Heres another one to try. You can do it anytime and almost anywhere. Stand next to a counter or solid support. Push yourself up onto your tiptoes. Hold for 5 seconds. If you start to lose your balance, hold on to the counter. Rest and repeat 5 times. Work up to holding for 20 to 30 seconds, if you can. Increase Flexibility Being more flexible makes it easier for you to move around safely. Try exercises like the seated hamstring stretch. Sit in a chair and put one foot on a stool. Straighten your leg and reach with both hands down either side of your leg. Reach as far down your leg as you can. Hold for about 20 seconds. Go back to the starting position. Then repeat 5 times. Switch legs. Build Strength Resistance exercises help build strength. You can do them without equipment. Or you can use weights, elastic bands, or special machines. One such exercise is called the biceps curl. You can hold a 1 pound weight or even a can of soup. Do this exercise at least 3 times a week. Strive for everyday. Sit up straight in a chair. Keep your elbow close to your body and your wrist straight. Bend your arm, moving your hand up to your shoulder. Then slowly lower your arm. Repeat 5 times. Switch to the other arm. Build Your Staying Power Aerobic exercises make your heart and lungs stronger so you can keep moving longer. Walking and swimming are two of the best types of exercises you can do. Using a stationary bike is great, too. Find an aerobic exercise that you enjoy. Start slowly and build up. Even 5 minutes is helpful. Aimfor a goal of 30 minutes, at least 3 times a week. You dont have to do 30 minutes in one session. Break it up and walk a little throughout the day. More Helpful Tips Start easy. Slowly work up to doing more. Talk with your healthcare provider about the best exercises for you. Call senior centers or health clubs about exercise programs. If needed, have a family member watch you walk every so often to check your stability. Exercise with a friend. Choose an activity you both enjoy. Try exercises that you can do anytime, anywhere. Here are two examples. Have someone with you when you first try these: Practice walking by placing one foot right in front of the other. Stand up and sit down 10 times. Repeat this throughout the day. [employer] Patient Education Copyright 2008 - 2010 [employer] except where otherwise noted. Preventing Falls: Moving Safely Using a Cane or Walker (This education is for all patients over 65 regardless of symptoms) Keep the cane away from your feet so you dont trip. A walking aid, such as a cane or walker, can help you stay more independent and avoid falls. Remember to keep your walking aid within easy reach when youre in a chair or in bed. And learn how to use it safely so you dont injure yourself. Using a Cane If you have a stronger side, hold the cane on that side. Get your balance. Move the cane and your weaker leg forward. Support your weight on both the cane and your weaker side. Step with your stronger leg. Start again from step 1. If youre using a folding walker, be sure you know how to lock it open. Check that its locked open before each use. Using a Walker Roll the walker (or lift it, if youre using one without wheels) forward about 12 inches. Step forward with your weaker leg first. Use the walker to help keep your balance. Bring your other foot forward to the center of the walker. Start again from step 1. Helpful Tips Check with your healthcare provider about the right walking aid to use. Ask about a walker with a seat attached. Check the tips of your cane or walker to make sure they have nonskid covers. Move slowly from room to room. Dont torres. Sit down to get dressed. Use a jairon pack or backpack to keep your hands free. Get help for jobs that mean climbing, even on a stepstool. Kim Patient Education Copyright 2009 - 2010 Kim except where otherwise noted. Treating Urinary Incontinence in Men (This education is for all patients over 65 regardless of symptoms) You can't always control the release of urine. You may leak urine. Or you may not be able to hold your urine until you can get to a bathroom. This is called urinary incontinence. The problem can be managed. Talk to your doctor about your treatment options. Taking Medications Prescription medications may help you. They may: Help the sphincter to work better. (This is the muscle that closes to keep urine from leaking out of the bladder.) Help stop the bladder from yazmin too often to push urine out. Help the bladder muscles contract with more force. Help relax the sphincter muscle and allow urine to flow more freely. Making Changes to Your Routine Certain changes in your daily routine may help. These include: Avoiding caffeine and alcohol. Using timed voiding. This is following a schedule for drinking fluids and urinating. Doing Kegel exercises daily. These exercises involve tightening the muscles in your sphincter and around your bladder to help strengthen them. Your doctor can explain how to do them. Using a Catheter A catheter is a narrow tube that is inserted through the urethra into the bladder. It drains urine.A condom catheter covers the penis. It channels urine into a collection bag. It is worn most of thetime. Intermittent catheterization means inserting a catheter to drain the bladder, then removing it. This is done on a regular schedule. Having Surgery If other options don't work, surgery may be recommended. If surgery is an option, your healthcare provider can discuss it with you and explain its risks and benefits. Healing After Prostate Surgery Surgery on the prostate gland can cause incontinence. Most often, the incontinence is only for a short time. It clears up when healing is complete. Very rarely, prostate surgery can result in permanent incontinence. Diabetes: Keeping Feet Healthy Inspect your feet every day for signs of a problem. Diabetes can damage nerves in your feet and cause neuropathy. This condition makes it hard for you to feel injuries or sore spots. Diabetes can also change blood flow, making it harder for small problems, like a blister, to heal properly. In fact, minor injuries can quickly become serious infections that send you to the hospital. Practice self-care to protect your feet and keep them healthy. Take Special Care Inspect your feet daily for problems such as redness, blisters, cracks, dry skin, or numbness. Use a mirror to see the bottoms of your feet. Or, ask for help. Manage your diabetes. Monitor and control your blood sugar. Take all your medications as prescribed. Avoid walking barefoot, even indoors. Wash your feet with warm water and mild soap. Dry well, especially between toes. Dont treat corns or calluses yourself. Talk to your doctor or [employer] (a doctor who specializes in foot care) if you need assistance trimming your toenails. Use moisturizing cream or lotion if you have dry skin, but dont use it between toes. Dont use heating pads on your feet. If you have neuropathy, you could get a burn and not feel it. Stop smoking. Smoking restricts blood flow and can make it harder for wounds to heal. Have Regular Checkups Foot problems can develop quickly. So be sure to follow your healthcare teams schedule for regular checkups. During office visits, take off your shoes and socks as soon as you get in the exam room. Ask your healthcare provider to examine your feet for problems. This will make it easier to find and treat small skin irritations before they get worse. Regular checkups can also help keep track of the blood flow and feeling in your feet. If you have neuropathy, you may need to have checkups more often. Wear Proper Footwear Wearing proper footwear is very important. If areas of your feet have been damaged by too much pressure, your healthcare provider may recommend changing your footwear. In some cases, avoiding high heels or tight work boots may be all thats needed. Or, your healthcare provider may recommend special shoes or custom inserts. These help protect your feet and keep existing irritations from getting worse. If you need special footwear, ask your healthcare provider if you qualify for [employer] diabetic shoe program. Make Sure Shoes and Socks Fit Any pair of shoes--new or old--should feel comfortable as soon as you put them on. There shouldnt be any rubbing when you walk. Wear the right shoe for any activity. For instance, a running shoe is designed to keep your feet injury-free while jogging. Buy shoes at the end of the day, when your feet are larger. Make sure they provide support without feeling too loose. Make sure your socks fit, t oo. Wear soft, seamless, well-padded socks for activity. Cotton or microfiber socks are best to help to absorb sweat. To protect your feet, avoid shoes that are open-toed or open-heeled. If you have questions about what kinds of shoes and socks are best, talk to your healthcare team. Get Regular Exercise Regular exercise improves blood flow in your feet. It also increases foot strength and flexibility.Gentle exercises, like walking or riding a stationary bicycle, are best. You can also do special foot exercises. Just be sure to talk with your healthcare provider before starting any exercise program. Also mention if any exercise causes pain, redness, or other signs of foot problems. Note: If you have any kind of break in the skin of your foot or ankle, keep the area clean. Then call your doctor--especially if the area doesnt appear to be healing. 7542-3660 [employer], [address] [place], [place] [address] [address]. All rights reserved. This information is not intended as a substitute for professional medical care. Always follow your healthcare professional's instructions. documented in this encounter Progress Notes * Calvin Resendez MD - 09/09/2024 1:15 PM EDT I have discussed the patient's management with the medical trainee and agree with the note. Please refer to the documented findings and plan of care. I was present and confirmed the findings of the history and exam and did personally examine the patient. Hip xray and labs today. If A1c well controlled, will reduce dose to 0.25 temporarily until new year due to donut hole and cost of ozempic. Calvin Resendez MD, KANDIS Family Physician [facility] Medicine Residency * Shirley Scott MED ASSIST - 09/09/2024 9:37 AM EDT Chief Complaint Patient presents with Follow Up Pt here for follow up today. Pt complaining of more hip pain for 3 months. Pt also would like to discuss Ozempic since it has gone up to $75 a month from $25 a month. Pt has to get 3 in a box so it is $250 at a time. Pt also has numbness from his left knee down. He denies any fall in the last 6 months since doing therapy. Patient has been verbally educated on the need or importance of Diabetic Foot Exam and has declinedtopic(s). PRE - ADMINISTRATION DOCUMENTATION Are you experiencing any cold symptoms or fever? No Have you had Guillain-Cedar Syndrome (an illness that causes paralysis) within the last 6 weeks? No Have you had the flu shot in the past? YES Have you ever had a reaction to the flu shot? No MARTHA Carey, 09/09/2024 9:44 AM Immunization Administration Documentation Time Out Procedure Performed: Yes Patient Identified (Ask Name/Date of ): Yes Does the patient have a fever greater than 101 degrees today? No Patient allergic to latex? No VFC Stock: No Immunization(s) verified: Yes, Immunization Name: COVID and Flu, VIS Sheet(s) given: Yes Verified Side and Site: Yes Verified Shot(s) with Parent(s)/Patient: Yes documented in this encounter Plan of Treatment Upcoming Encounters Date Type Department Care Team (Late st Contact Info) Description 12/22/2024 7:45 AM EST Office Visit Ophthalmology, [place] [address] [place] [address] Micah Aquino MD [address] [place] [address] 03/16/2025 7:00 AM EDT Office Visit Family [facility], [place] [address] [place] [phone] Calvin Resendez MD [address] [place] [address] Pending Results Name Type Priority Associated Diagnoses Date /Time HEMOGLOBIN A1C Lab Routine Type 2 diabetes mellitus with stage 3a chronic kidney disease, without long-term current use of insulin ([facility]) 09/09/2024 10:55 AM EDT RENAL FUNCTION PANEL Lab Routine Type 2 diabetes mellitus with stage 3a chronic kidney disease, without long-term current use of insulin ([facility]) 09/09/2024 10:55 AM EDT CBC Lab Routine Type 2 diabetes mellitus with stage 3a chronic kidney disease, without long-term current use of insulin ([facility]) 09/09/2024 10:55 AM EDT XR HIP BILAT MIN 5 VIEWS INCLUDING AP OF PELVIS Medical Imaging Routine Bilateral hip pain 09/09/2024 11:00 AM EDT Scheduled Orders Name Type Priority Associated Diagnoses Orde r Schedule HEMOGLOBIN A1C Lab Routine Type 2 diabetes mellitus with stage 3a chronic kidney disease, without long-term current use of insulin ([facility]) Expected: 09/09/2024 (Approximate), Expires: 10/10/2025 RENAL FUNCTION PANEL Lab Routine Type 2 diabetes mellitus with stage 3a chronic kidney disease, without long-term current use of insulin ([facility]) Expected: 09/09/2024 (Approximate), Expires: 09/09/2025 CBC Lab Routine Type 2 diabetes mellitus with stage 3a chronic kidney disease, without long-term current use of insulin ([facility]) Expected: 09/09/2024 (Approximate), Expires: 09/09/2025 Health Maintenance Due Date Last Done Comments DISCUSS TOBACCO CESSATION (REFER TO SMARTSET #[id number]) 11/03/2017 11/03/2016 (Discussed) Adult Wellness Visit 06/12/2023 06/12/2022 CKD HGB USE SMARTSET 26529 03/28/202403/28, 01/05/2023, 06/13/2022, Additional history exists GFR 08/07/2024 02/05/2024, 06/20, 01/05/2023, Additional history exists HbA1c 08/07/2024 02/05/2024, 06/20, 01/05/2023, Additional history exists B-12 11/14/2024 11/14/2023, 12/20, 08/28/2019, Additional history exists CKD PHOS USE SMARTSET 92824 02/04/202501/17, 07/16/2023, 01/05/2023, Additional history exists Albumin/Creatinine [...] as of this encounter Visit Diagnoses Diagnosis Bilateral hip pain- Primary Pain in joint, pelvic region and thigh Risk and functional assessment Screening for unspecified condition Need for prophylactic vaccination and inoculation against influenza Type 2 diabetes mellitus with stage 3a chronic kidney disease, without long-term current use of insulin ([facility]) Need for COVID-19 vaccine HTN, goal below 130/80 Unspecified essential hypertension documented in this encounter Care Teams Fixture Designer Relationship Specialty Start Date End Date Calvin Resendez MD [address] [place] [address] PCP - General Family Medicine 12/12/21 documented as of this encounter
--- OUTSIDE RECORDS SUMMARY | 2025-02-13 20:45 | External Medical Summary | Summary of Care ---
Author Name Unknown Organization [facility] Address [address] [place] [address] Phone [phone] Care Team Providers Care Blood Bank Manager Name Role Phone Calvin Resendez MD Primary Care Provider [phone] Reason for Referral * Precert (Within 10 days (routine)) - Authorized Specialty Diagnoses / Procedures Referred By Wai shipley Referred To Contact Radiology Diagnoses History of prostate cancer Procedures MRI PELVIS W WO CONTRAST Calvin Resendez MD [address] [facility] [place] [address] Phone: tel: fax: Referral ID Status Reason Start Date Expiration Date V isits Requested Visits Authorized [id number] Authorized 11/03/2024 [id number] Reason for Visit * Precert (Within 10 days (routine)) - Authorized Specialty Diagnoses / Procedures Referred By Wai shipley Referred To Contact Radiology Diagnoses History of prostate cancer Procedures MRI PELVIS W WO CONTRAST Calvin Resendez MD [address] [place] [address] Phone: tel: fax: Referral ID Status Reason Start Date Expiration Date V isits Requested Visits Authorized [id number] Authorized 11/03/2024 [id number] Encounter Details Date Type Department Care Team (Latest Contact Info) Description 11/22/2024 11:50 AM EST Hospital Encounter Radiology, [address] [place] [address] Arrived Discharge Disposition: Home - Self Care [...] prostate cancer 12/27/2018 Overview (01/05/2023): Follows with [facility] Anemia of chronic disease 11/03/2016 [...] mRNA, LNP-s, No Pre serve, 2-Dose Series ([employer]) 09/24/2021,02/07/2021,01/12/2021 COVID-19, MRNA-LNP, PF, 30 M CG/0.3 [...] on file Are you (or your family) ikan eless or worried that you might be [...] Visit Ophthalmology, [place] [address] [place] [place] [address] Micah Aquino MD [address] [place] [address] 03/16/2025 7:00 AM EDT Office Visit Family Practice, [place] [address] [place] [phone] Calvin Resendez MD [address] [place] [address] Pending Results Name Type Priority Associated Diagnoses Date /Time MRI PELVIS W WO CONTRAST Medical Imaging Routine History of prostate cancer 11/22/2024 1:25 PM EST Scheduled Orders Name Type Priority Associated Diagnoses Orde r Schedule MRI PELVIS W WO CONTRAST Medical Imaging Routine History of prostate cancer 1 Occurrences starting 11/22/2024 until 11/22/2024 Health [...] Additional history exists CKD HGB USE SMARTSET 56250 09/09/202509/09, 03/28/2023, 01/05/2023, Additional history exists CKD PHOS USE SMARTSET 25720 09/09/202508/20, 02/05/2024, 07/16/2023, Additional history exists Depression [...] as of this encounter Visit Diagnoses Diagnosis History of prostate cancer Personal history of malignant neoplasm of prostate documented in this encounter Administered Medications Inactive Administered Medications - up to 3 most recent administrations Medication Order MAR Action Action Date Dose Rate Site gadobutrol (Gadavist) inj 2 mL 2 mL, Intravenous, ONCE, On 11/22/24 at 1318, For 1 dose Given 11/22/2024 1:16 PM EST 9 mL Antecubital Right documented in this encounter Care Teams Blood Bank Manager Relationship Specialty Start Date End Date Calvin Resendez MD [address] [place] [phone] PCP - General Family Medicine 12/12/21 documented as of this encounter
[2025-02-13] MEDS ORDERED: VALSARTAN 80 MG TAB PO SCH (21:00)
[2025-02-13 22:53] LABS: Hematocrit (blood only) 23.7 % (42.0-52.0); Hemoglobin 8.2 g/dl (14.0-18.0)
[2025-02-14] MEDS: traMADol HCL 50 MG TABLET PO PRN (05:39)
[2025-02-14] MEDS: POLYETHYLENE (MIRALAX) 17 GM PACK PO SCH (05:39)
[2025-02-14 07:29] LABS: Basophils # (auto) 0.04 K/uL (0.00-0.20); Basophils % (auto) 0.3 %; Eosinophils # (auto) 0.01 K/uL (0.00-0.50); Eosinophils % (auto) 0.1 %; Hematocrit (blood only) 23.2 % (42.0-52.0); Immature Granulocytes # (auto) 0.09 K/uL (0.01-0.20); Immature Granulocytes % (auto) 0.7 %; Lymphocytes # (auto) 1.15 K/uL (1.20-3.40); Lymphocytes % (auto) 9.4 %; Mean Corpuscular Hemoglobin 30.5 pg (25.0-34.0); Mean Corpuscular Hgb Conc 34.5 g/dL (32.0-36.0); Mean Corpuscular Volume 88.5 fL (80.0-100.0); Mean Platelet Volume 9.8 fL (9.4-12.4); Monocytes # (auto) 1.17 K/uL (0.11-0.59); Monocytes % (auto) 9.6 %; Neutrophils # (auto) 9.74 K/uL (1.40-6.50); Neutrophils % (auto) 79.9 %; Platelet Count 144 K/uL (130-400); RDW Coefficient of Variation 12.8 % (11.5-14.5); RDW Standard Deviation 41.1 fL (36.4-46.3); Red Blood Count 2.62 M/uL (4.70-6.10)
[2025-02-14 07:51] LABS: BUN Creatinine Ratio 22.9 (10-20); Calcium 8.5 mg/dl (8.6-10.3); Creatinine Clr Calc Pharmacy 41.6 ml/min; Potassium 4.5 mmol/L (3.5-5.1)
--- NOTE | 2025-02-14 08:30 | Hospitalist Progress Note ---
Date of Service February 14, 2025 Assessment & Plan (1) Status post lumbar spine operative procedure for decompression of spinal cord: (2) Acute blood loss as cause of postoperative anemia: (3) Spinal stenosis, lumbar region with neurogenic claudication: (4) Diabetes mellitus, type 2: (5) Hypertension: (6) Chronic kidney disease: Plan Patient s/p lumbar procedure for decompression of the lumbar spine with significant amount of blood loss intraoperatively. Patient was hypotensive and was resuscitated with IV fluids and albumin. Patient now asymptomatic on the medical floor. Current Hgb 8.0 Current BP still on lower side 93/54 Pt feels well, no chest pain, dizziness, not tachycardic. Continue to monitor hemoglobin, consider transfusion of PRBCs if hemoglobin less than 7 and/or patient becomes symptomatic. Hold Diovan due to blood pressure Atenolol has hold parameters, hold if meets criteria Short acting insulin sliding scale per parameters to manage his diabetes Monitor electrolytes and renal function Pain management and VTE prophylaxis per surg. attending Admission and Anticipated Discharge Date Admission Date: February 13, 2025 Subjective Pt seen in follow up of med consult, pt s/p lumbar spinal surgery Hgb 8.0 this AM Pt lying in bed in NAD, BP still on lower side, currently 93/54 Pt says he feels well, not having any significant pain, legs feel better No chest pain, dizziness, shortness of breath Pt has not been out of bed yet and still has Sapp placed OT at the bedside - about to work with the pt Pt reports hx of reaction to blood transfusion in the past Review of Systems Review of Systems: All systems reviewed & are unremarkable except as noted in Subjective Physical Exam Physical Exam: Constitutional: WD/WN M in no acute distress HEENT: Mucous membranes moist. Sclera clear Neck: Soft, no adenopathy Lungs: Clear to auscultation, decreased, no wheezes rales or rhonchi CV: S1-S2, regular Abdomen: Soft, nontender, nondistended Extremities: No significant edema, moves extremities Musculoskeletal/ back: + Surgical dressing ZBIGNIEW drain : + Sapp draining yellow urine Neuro/psych: awake, alert, answers appropriately, speech fluent, no facial asymmetry, moves extremities Results & Data Results & Data Vital Signs (Past 12 Hours) Vital Signs Temp Pulse Resp BP Pulse Ox O2 Del Method 02/14/25 07:55 36.6 C 83 16 93/54 L 94 Room Air 02/14/25 05:29 36.7 C 64 18 99/52 L 100 Room Air 02/14/25 00:38 67 18 99/55 L 99 Room Air 02/13/25 22:24 36.6 C 71 18 100/56 L 99 Room Air 02/13/25 20:33 36.7 C 74 18 99/54 L 98 Room Air Laboratory Results 02/14/25 02/14/25 02/13/25 Range/Units 07:54 07:06 22:31 WBC 12.20 H (4.8-10.8) K/ul RBC 2.62 L (4.70-6.10) M/uL Hgb 8.0 L 8.2 L (14.0-18.0) g/dl Hct 23.2 L 23.7 L (42.0-52.0) % MCV 88.5 (80.0-100.0) fL MCH 30.5 (25.0-34.0) pg MCHC 34.5 (32.0-36.0) g/dL RDW Std Deviation 41.1 (36.4-46.3) fL RDW Coeff of Laura 12.8 (11.5-14.5) % Plt Count 144 (130-400) K/uL MPV 9.8 (9.4-12.4) fL Immature Gran % (Auto) 0.7 % Neut % (Auto) 79.9 % Lymph % (Auto) 9.4 % [place] % (Auto) 9.6 % Eos % (Auto) 0.1 % Baso % (Auto) 0.3 % Neut # (Auto) 9.74 H (1.40-6.50) K/uL Lymph # (Auto) 1.15 L (1.20-3.40) K/uL [place] # (Auto) 1.17 H (0.11-0.59) K/uL Eos # (Auto) 0.01 (0.00-0.50) K/uL Baso # (Auto) 0.04 (0.00-0.20) K/uL Immature Gran # (Auto) 0.09 (0.01-0.20) K/uL Sodium 134 L (136-145) mmol/L Potassium 4.5 (3.5-5.1) mmol/L Chloride 102 (98-107) mmol/L Carbon Dioxide 25 (21-32) mmol/L Anion Gap 7 (3-11) BUN 35 H (6-23) mg/dl Creatinine 1.53 H (0.6-1.4) mg/dl Est Cr Clr Drug Dosing 41.6 ml/min eGFR 45.39 BUN/Creatinine Ratio 22.9 H (10-20) Glucose 253 H (70-99(Fasting)) mg/dl POC Glucose 250 H (70-99) mg/dl Calcium 8.5 L (8.6-10.3) mg/dl Blood Type Antibody Screen Crossmatch 02/13/25 02/13/25 02/13/25 Range/Units 20:29 17:44 16:53 WBC (4.8-10.8) K/ul RBC (4.70-6.10) M/uL Hgb 9.4 L (14.0-18.0) g/dl Hct 26.9 L (42.0-52.0) % MCV (80.0-100.0) fL MCH (25.0-34.0) pg MCHC (32.0-36.0) g/dL RDW Std Deviation (36.4-46.3) fL RDW Coeff of Laura (11.5-14.5) % Plt Count (130-400) K/uL MPV (9.4-12.4) fL Immature Gran % (Auto) % Neut % (Auto) % Lymph % (Auto) % [place] % (Auto) % Eos % (Auto) % Baso % (Auto) % Neut # (Auto) (1.40-6.50) K/uL Lymph # (Auto) (1.20-3.40) K/uL [place] # (Auto) (0.11-0.59) K/uL Eos # (Auto) (0.00-0.50) K/uL Baso # (Auto) (0.00-0.20) K/uL Immature Gran # (Auto) (0.01-0.20) K/uL Sodium (136-145) mmol/L Potassium (3.5-5.1) mmol/L Chloride (98-107) mmol/L Carbon Dioxide (21-32) mmol/L Anion Gap (3-11) BUN (6-23) mg/dl Creatinine (0.6-1.4) mg/dl Est Cr Clr Drug Dosing ml/min eGFR BUN/Creatinine Ratio (10-20) Glucose (70-99(Fasting)) mg/dl POC Glucose 294 H 269 H (70-99) mg/dl Calcium (8.6-10.3) mg/dl Blood Type Antibody Screen Crossmatch 02/13/25 02/13/25 02/13/25 Range/Units 15:21 09:51 09:48 WBC (4.8-10.8) K/ul RBC (4.70-6.10) M/uL Hgb (14.0-18.0) g/dl Hct (42.0-52.0) % MCV (80.0-100.0) fL MCH (25.0-34.0) pg MCHC (32.0-36.0) g/dL RDW Std Deviation (36.4-46.3) fL RDW Coeff of Laura (11.5-14.5) % Plt Count (130-400) K/uL MPV (9.4-12.4) fL Immature Gran % (Auto) % Neut % (Auto) % Lymph % (Auto) % [place] % (Auto) % Eos % (Auto) % Baso % (Auto) % Neut # (Auto) (1.40-6.50) K/uL Lymph # (Auto) (1.20-3.40) K/uL [place] # (Auto) (0.11-0.59) K/uL Eos # (Auto) (0.00-0.50) K/uL Baso # (Auto) (0.00-0.20) K/uL Immature Gran # (Auto) (0.01-0.20) K/uL Sodium (136-145) mmol/L Potassium (3.5-5.1) mmol/L Chloride (98-107) mmol/L Carbon Dioxide (21-32) mmol/L Anion Gap (3-11) BUN (6-23) mg/dl Creatinine (0.6-1.4) mg/dl Est Cr Clr Drug Dosing ml/min eGFR BUN/Creatinine Ratio (10-20) Glucose (70-99(Fasting)) mg/dl POC Glucose 198 H 168 H (70-99) mg/dl Calcium (8.6-10.3) mg/dl Blood Type AB Negative Antibody Screen NEGATIVE Crossmatch See Detail Medications Administered Current Inpatient Medications Acetaminophen (Acetaminophen 500 Mg Tab) 1,000 mg PO Q8H PRN PRN Reason: MILD Pain Scale 1,2,3 & Pre PT Stop: 03/15/25 17:43 Al Hydrox/Mg Hydrox/Simethicone (Aluminum/Magnesium Susp 30 Ml Udc) 30 ml PO Q6H PRN PRN Reason: Dyspepsia Stop: 03/15/25 17:43 Atenolol (Atenolol 50 Mg Tablet) 50 mg PO HS [facility] Stop: 03/15/25 20:59 Last Admin: 02/13/25 20:30 Dose: Not Given Atorvastatin Calcium (Atorvastatin 20 Mg Tab) 20 mg PO HS [facility] Stop: 03/15/25 20:59 Last Admin: 02/13/25 20:30 Dose: 20 mg Bisacodyl (Bisacodyl 10 Mg Supp) 10 mg AL DAILY PRN PRN Reason: Constipation Stop: 03/15/25 17:43 Dextrose (Dextrose 50% 50 Ml Syringe) 25 - 50 ml IV UD PRN; Protocol PRN Reason: Hypoglycemia Protocol Stop: 03/15/25 19:19 Diphenhydramine HCl (Diphenhydramine Capsule 25 Mg Cap) 25 mg PO Q6H PRN PRN Reason: Allergic Rhinitis/Insomnia Stop: 03/15/25 17:43 Famotidine (Famotidine 20 Mg Tab) 20 mg PO Q12H PRN PRN Reason: Dyspepsia Stop: 03/15/25 17:43 Glucagon (Glucagon For Inj 1 Mg Vial) 1 mg SQ UD PRN; Protocol PRN Reason: Hypoglycemia Protocol Stop: 03/15/25 19:19 Glucose (Glucose 40% Gel 15 Gm Tube) 15 - 30 gm PO UD PRN; Protocol PRN Reason: Hypoglycemia Protocol Stop: 03/15/25 19:19 Glucose (Glucose 10 Tab/Tube) 4 - 8 tab PO UD PRN; Protocol PRN Reason: Hypoglycemia Protocol Stop: 03/15/25 19:19 Hydromorphone HCl (Hydromorphone Inj 0.5 Mg/0.5 Ml Syr) 0.5 mg IV Q3H PRN PRN Reason: MODERATE Pain (Scale 4,5,6) & Pre PT Stop: 02/27/25 17:43 Hydromorphone HCl (Hydromorphone Inj 1 Mg/Ml Syringe) 1 mg IV Q3H PRN PRN Reason: SEVERE Pain (Scale 7,8,9,10) Stop: 02/27/25 17:43 Hydroxyzine HCl (Hydroxyzine Hcl 25 Mg Tab) 25 mg PO Q8H PRN PRN Reason: Anxiety Stop: 03/15/25 17:43 Acetaminophen (Ofirmev) 1,000 mg in 100 mls @ 400 mls/hr IV Q8H PRN PRN Reason: Pain Rating 1-3 & Pre PT Stop: 02/14/25 17:44 Promethazine HCl (Phenergan) 12.5 mg in 50.5 mls @ 202 mls/hr IV Q6H PRN PRN Reason: Nausea And Vomiting Stop: 03/15/25 17:43 Dexamethasone 6 mg/ Syringe 1.5 mls @ 1 mls/min IV DAILY [facility] Stop: 02/16/25 09:02 Influenza Virus Vaccine Quadrival (Do Not Administer Flu Vaccine) 1 each N/A PRN PRN PRN Reason: Notification Stop: 03/15/25 17:43 Insulin Aspart (Insulin Aspart Per Unit Charge) 0 units SC ACHS [facility] Stop: 03/15/25 20:59 Last Admin: 02/13/25 20:41 Dose: 4 units Lorazepam (Lorazepam 0.5 Mg Tab) 0.5 mg PO Q8H PRN PRN Reason: Sedation/Anxiety Stop: 03/15/25 17:43 Lorazepam (Lorazepam 2 Mg/1 Ml Vial) 0.5 mg IV Q8H PRN PRN Reason: Sedation/Anxiety Stop: 03/15/25 17:43 Magnesium Hydroxide (Magnesium Hydroxide Susp 30 Ml Udc) 30 ml PO Q24H PRN PRN Reason: Constipation Stop: 03/15/25 17:43 Metoclopramide HCl (Metoclopramide Hcl Inj 5 Mg/Ml 2 Ml Vial) 10 mg IV Q6H PRN PRN Reason: Nausea &/or Vomiting Stop: 03/15/25 17:43 Miscellaneous (Carbohydrates For Hypoglycemia ) 15 - 30 gm PO UD PRN PRN Reason: Hypoglycemia Protocol Stop: 03/15/25 19:19 Naloxone HCl (Naloxone Hcl 0.4 Mg/1 Ml Vial/Carp) 0.1 mg IV Q5M PRN PRN Reason: Oversedation/Resp depression Stop: 03/15/25 17:43 Ondansetron HCl (Ondansetron Inj 2 Mg/Ml 2 Ml Vial) 4 mg IV Q6H PRN PRN Reason: Nausea &/or Vomiting Stop: 03/15/25 17:43 Ondansetron HCl (Ondansetron 4 Mg Od Tab) 4 mg PO Q6H PRN PRN Reason: Nausea Stop: 03/15/25 17:43 Oxycodone HCl (Oxycodone Hcl Ir 5 Mg Tab (Immediate Release)) 5 - 10 mg PO Q4H PRN PRN Reason: Pain & Pre PT Stop: 02/27/25 17:43 Last Admin: 02/13/25 20:32 Dose: 5 mg Pneumococcal Polyvalent Vaccine (Do Not Administer Pneumococcal Vaccine) 1 each N/A PRN PRN PRN Reason: Notification Stop: 03/15/25 17:43 Polyethylene Glycol (Polyethylene (Miralax) 17 Gm Pack) 17 gm PO Q6 [facility] Stop: 03/16/25 05:59 Last Admin: 02/14/25 05:39 Dose: 17 gm Senna/Docusate Sodium (Docusate Sodium/Senna 50/8.6mg Tab) 2 tab PO HS [facility] Stop: 03/15/25 20:59 Last Admin: 02/13/25 20:30 Dose: 2 tab Sodium Biphosphate/Sodium Phosphate (Sod Phosphate/Sod Biphosphate Enema 132 Ml Btl) 132 ml AL ONE PRN PRN Reason: Constipation Stop: 03/15/25 17:43 Tramadol HCl (Tramadol Hcl 50 Mg Tablet) 50 - 100 mg PO Q4H PRN PRN Reason: Moderate-Severe pain & Pre PT Stop: 03/15/25 17:43 Last Admin: 02/14/25 05:39 Dose: 50 mg Valsartan (Valsartan 80 Mg Tab) 80 mg PO HS [facility] Stop: 03/15/25 20:59
[2025-02-14] MEDS ORDERED: EMPAGLIFLOZIN 10 MG TAB PO SCH (09:00)
[2025-02-14] MEDS: dexAMETHasone 6 MG in SYRINGE 0 ML IV SCH (09:45)
--- NOTE | 2025-02-14 10:53 | Orthopedic Progress Note ---
Date of Service February 14, 2025 Assessment & Plan (1) Spinal stenosis, lumbar region with neurogenic claudication: Plan: Patient is doing well postoperative day 1. We are going to have him undergo physical therapy. I would like to leave his catheter in place today and consider removing it tomorrow as he probably had some distention intraoperatively. Will continue with GI DVT prophylaxis hopefully get him home in the next couple of days. Admission and Anticipated Discharge Date Admission Date: February 13, 2025 Subjective Patient was seen bedside in room 356. He is doing well at this point. He states that his pain is controlled. His legs feel good. He is not nauseous. His catheter is still in place. He denies any other numbness, tingling, or paresthesias. Physical Exam Physical Exam: On exam he is alert and oriented. His lower extremity motor exam reveals no focal atrophy strength and sensation are both intact. His abdomen soft and nontender his calves are supple and nontender. He answers questions appropriately. Cardiovascular exam reveals no gross abnormalities. His visual bernstein are intact. Results & Data Vital Signs (Past 12 Hours) Vital Signs Temp Pulse Resp BP Pulse Ox O2 Del Method 02/14/25 07:55 36.6 C 83 16 93/54 L 94 Room Air 02/14/25 05:29 36.7 C 64 18 99/52 L 100 Room Air 02/14/25 00:38 67 18 99/55 L 99 Room Air
[2025-02-14] MEDS: LANTUS PER UNIT CHARGE SC SCH (15:34)
[2025-02-14] MEDS: HYDROmorphone INJ 1 MG/ML SYRINGE IV PRN (15:34)
[2025-02-15 06:37] LABS: Hematocrit (blood only) 22.8 % (42.0-52.0); Mean Corpuscular Hemoglobin 31.5 pg (25.0-34.0); Mean Corpuscular Hgb Conc 35.1 g/dL (32.0-36.0); Mean Corpuscular Volume 89.8 fL (80.0-100.0); Mean Platelet Volume 10.2 fL (9.4-12.4); Platelet Count 153 K/uL (130-400); RDW Coefficient of Variation 12.8 % (11.5-14.5); RDW Standard Deviation 41.7 fL (36.4-46.3); Red Blood Count 2.54 M/uL (4.70-6.10); White Blood Count 12.05 K/ul (4.8-10.8)
[2025-02-15 07:06] LABS: BUN Creatinine Ratio 25.6 (10-20); Calcium 8.6 mg/dl (8.6-10.3); Creatinine Clr Calc Pharmacy 35.3 ml/min; Magnesium 1.8 mg/dl (1.7-2.4); Phosphorus 3.2 mg/dl (2.5-4.9); Potassium 4.8 mmol/L (3.5-5.1)
--- NOTE | 2025-02-15 08:08 | Hospitalist Progress Note ---
Date of Service February 15, 2025 Assessment & Plan (1) Status post lumbar spine operative procedure for decompression of spinal cord: (2) Acute blood loss as cause of postoperative anemia: (3) Spinal stenosis, lumbar region with neurogenic claudication: (4) Diabetes mellitus, type 2: (5) Hypertension: (6) Chronic kidney disease: Plan Patient s/p lumbar procedure for decompression of the lumbar spine with significant amount of blood loss intraoperatively. Patient was hypotensive and was resuscitated with IV fluids and albumin. Patient now asymptomatic on the medical floor. Current Hgb 8.0 - stable from yesterday Current BP 103/63 Pt feels well, no chest pain, dizziness, not tachycardic. Been ambulating. Continue to monitor hemoglobin, consider transfusion of PRBCs if hemoglobin less than 7 and/or patient becomes symptomatic. Hold Diovan due to blood pressure Atenolol has hold parameters, hold if meets criteria LUC Cr now 1.8, will give again IVF and will discuss w/ nephrology cont. to monitor renal function Short acting insulin sliding scale per parameters to manage his diabetes Monitor electrolytes and renal function Pain management and VTE prophylaxis per surg. attending Admission and Anticipated Discharge Date Admission Date: February 13, 2025 Subjective Pt seen in follow up of med consult, pt s/p lumbar spinal surgery Hgb 8.0 this AM- stable from yesterday Pt lying in bed in NAD, BP 102/63 Pt says he feels well, says he ambulated in hallway says he is voiding No chest pain, dizziness, shortness of breath Pt reports hx of reaction to blood transfusion in the past Cr elevated - will give IVF will discuss w/ nephro Review of Systems Review of Systems: All systems reviewed & are unremarkable except as noted in Subjective Physical Exam Physical Exam: Constitutional: WD/WN M in no acute distress HEENT: Mucous membranes moist. Sclera clear Neck: Soft, no adenopathy Lungs: Clear to auscultation, decreased, no wheezes rales or rhonchi CV: S1-S2, regular Abdomen: Soft, nontender, nondistended Extremities: No significant edema, moves extremities Musculoskeletal/ back: + Surgical dressing ZBIGNIEW drain Neuro/psych: awake, alert, answers appropriately, speech fluent, no facial asymmetry, moves extremities Results & Data Results & Data Laboratory Results 02/15/25 02/15/25 02/14/25 Range/Units 07:14 06:20 20:28 WBC 12.05 H (4.8-10.8) K/ul RBC 2.54 L (4.70-6.10) M/uL Hgb 8.0 L (14.0-18.0) g/dl Hct 22.8 L (42.0-52.0) % MCV 89.8 (80.0-100.0) fL MCH 31.5 (25.0-34.0) pg MCHC 35.1 (32.0-36.0) g/dL RDW Std Deviation 41.7 (36.4-46.3) fL RDW Coeff of Laura 12.8 (11.5-14.5) % Plt Count 153 (130-400) K/uL MPV 10.2 (9.4-12.4) fL Sodium 131 L (136-145) mmol/L Potassium 4.8 (3.5-5.1) mmol/L Chloride 101 (98-107) mmol/L Carbon Dioxide 22 (21-32) mmol/L Anion Gap 8 (3-11) BUN 46 H (6-23) mg/dl Creatinine 1.80 H (0.6-1.4) mg/dl Est Cr Clr Drug Dosing 35.3 ml/min eGFR 37.35 BUN/Creatinine Ratio 25.6 H (10-20) Glucose 193 H (70-99(Fasting)) mg/dl POC Glucose 186 H 351 H* (70-99) mg/dl Calcium 8.6 (8.6-10.3) mg/dl Phosphorus 3.2 (2.5-4.9) mg/dl Magnesium 1.8 (1.7-2.4) mg/dl 02/14/25 02/14/25 02/14/25 Range/Units 20:25 20:23 16:39 WBC (4.8-10.8) K/ul RBC (4.70-6.10) M/uL Hgb (14.0-18.0) g/dl Hct (42.0-52.0) % MCV (80.0-100.0) fL MCH (25.0-34.0) pg MCHC (32.0-36.0) g/dL RDW Std Deviation (36.4-46.3) fL RDW Coeff of Laura (11.5-14.5) % Plt Count (130-400) K/uL MPV (9.4-12.4) fL Sodium (136-145) mmol/L Potassium (3.5-5.1) mmol/L Chloride (98-107) mmol/L Carbon Dioxide (21-32) mmol/L Anion Gap (3-11) BUN (6-23) mg/dl Creatinine (0.6-1.4) mg/dl Est Cr Clr Drug Dosing ml/min eGFR BUN/Creatinine Ratio (10-20) Glucose (70-99(Fasting)) mg/dl POC Glucose 356 H* 427 H* 362 H* (70-99) mg/dl Calcium (8.6-10.3) mg/dl Phosphorus (2.5-4.9) mg/dl Magnesium (1.7-2.4) mg/dl 02/14/25 02/14/25 02/14/25 Range/Units 16:38 11:27 11:26 WBC (4.8-10.8) K/ul RBC (4.70-6.10) M/uL Hgb (14.0-18.0) g/dl Hct (42.0-52.0) % MCV (80.0-100.0) fL MCH (25.0-34.0) pg MCHC (32.0-36.0) g/dL RDW Std Deviation (36.4-46.3) fL RDW Coeff of Laura (11.5-14.5) % Plt Count (130-400) K/uL MPV (9.4-12.4) fL Sodium (136-145) mmol/L Potassium (3.5-5.1) mmol/L Chloride (98-107) mmol/L Carbon Dioxide (21-32) mmol/L Anion Gap (3-11) BUN (6-23) mg/dl Creatinine (0.6-1.4) mg/dl Est Cr Clr Drug Dosing ml/min eGFR BUN/Creatinine Ratio (10-20) Glucose (70-99(Fasting)) mg/dl POC Glucose 383 H* 298 H 316 H* (70-99) mg/dl Calcium (8.6-10.3) mg/dl Phosphorus (2.5-4.9) mg/dl Magnesium (1.7-2.4) mg/dl Medications Administered Current Inpatient Medications Acetaminophen (Acetaminophen 500 Mg Tab) 1,000 mg PO Q8H PRN PRN Reason: MILD Pain Scale 1,2,3 & Pre PT Stop: 03/15/25 17:43 Al Hydrox/Mg Hydrox/Simethicone (Aluminum/Magnesium Susp 30 Ml Udc) 30 ml PO Q6H PRN PRN Reason: Dyspepsia Stop: 03/15/25 17:43 Atenolol (Atenolol 50 Mg Tablet) 50 mg PO HS [facility] Stop: 03/15/25 20:59 Last Admin: 02/14/25 20:15 Dose: 50 mg Atorvastatin Calcium (Atorvastatin 20 Mg Tab) 20 mg PO HS [facility] Stop: 03/15/25 20:59 Last Admin: 02/14/25 20:15 Dose: 20 mg Bisacodyl (Bisacodyl 10 Mg Supp) 10 mg DE DAILY PRN PRN Reason: Constipation Stop: 03/15/25 17:43 Dextrose (Dextrose 50% 50 Ml Syringe) 25 - 50 ml IV UD PRN; Protocol PRN Reason: Hypoglycemia Protocol Stop: 03/15/25 19:19 Diphenhydramine HCl (Diphenhydramine Capsule 25 Mg Cap) 25 mg PO Q6H PRN PRN Reason: Allergic Rhinitis/Insomnia Stop: 03/15/25 17:43 Famotidine (Famotidine 20 Mg Tab) 20 mg PO Q12H PRN PRN Reason: Dyspepsia Stop: 03/15/25 17:43 Glucagon (Glucagon For Inj 1 Mg Vial) 1 mg SQ UD PRN; Protocol PRN Reason: Hypoglycemia Protocol Stop: 03/15/25 19:19 Glucose (Glucose 40% Gel 15 Gm Tube) 15 - 30 gm PO UD PRN; Protocol PRN Reason: Hypoglycemia Protocol Stop: 03/15/25 19:19 Glucose (Glucose 10 Tab/Tube) 4 - 8 tab PO UD PRN; Protocol PRN Reason: Hypoglycemia Protocol Stop: 03/15/25 19:19 Hydromorphone HCl (Hydromorphone Inj 0.5 Mg/0.5 Ml Syr) 0.5 mg IV Q3H PRN PRN Reason: MODERATE Pain (Scale 4,5,6) & Pre PT Stop: 02/27/25 17:43 Hydromorphone HCl (Hydromorphone Inj 1 Mg/Ml Syringe) 1 mg IV Q3H PRN PRN Reason: SEVERE Pain (Scale 7,8,9,10) Stop: 02/27/25 17:43 Last Admin: 02/14/25 15:34 Dose: 1 mg Hydroxyzine HCl (Hydroxyzine Hcl 25 Mg Tab) 25 mg PO Q8H PRN PRN Reason: Anxiety Stop: 03/15/25 17:43 Promethazine HCl (Phenergan) 12.5 mg in 50.5 mls @ 202 mls/hr IV Q6H PRN PRN Reason: Nausea And Vomiting Stop: 03/15/25 17:43 Dexamethasone 6 mg/ Syringe 1.5 mls @ 1 mls/min IV DAILY [facility] Stop: 02/16/25 09:02 Last Admin: 02/14/25 09:45 Dose: 1 mls/min Sodium Chloride (Nss) 1,000 mls @ 125 mls/hr IV .Q8H ONE Stop: 02/15/25 16:04 Influenza Virus Vaccine Quadrival (Do Not Administer Flu Vaccine) 1 each N/A PRN PRN PRN Reason: Notification Stop: 03/15/25 17:43 Insulin Aspart (Insulin Aspart Per Unit Charge) 0 units SC ACHS [facility] Stop: 03/15/25 20:59 Last Admin: 02/14/25 20:43 Dose: 11 units Insulin Glargine (Lantus Per Unit Charge) 15 units SC DAILY [facility] Stop: 02/16/25 09:01 Last Admin: 02/14/25 15:34 Dose: 15 units Lorazepam (Lorazepam 0.5 Mg Tab) 0.5 mg PO Q8H PRN PRN Reason: Sedation/Anxiety Stop: 03/15/25 17:43 Lorazepam (Lorazepam 2 Mg/1 Ml Vial) 0.5 mg IV Q8H PRN PRN Reason: Sedation/Anxiety Stop: 03/15/25 17:43 Magnesium Hydroxide (Magnesium Hydroxide Susp 30 Ml Udc) 30 ml PO Q24H PRN PRN Reason: Constipation Stop: 03/15/25 17:43 Metoclopramide HCl (Metoclopramide Hcl Inj 5 Mg/Ml 2 Ml Vial) 10 mg IV Q6H PRN PRN Reason: Nausea &/or Vomiting Stop: 03/15/25 17:43 Miscellaneous (Carbohydrates For Hypoglycemia ) 15 - 30 gm PO UD PRN PRN Reason: Hypoglycemia Protocol Stop: 03/15/25 19:19 Naloxone HCl (Naloxone Hcl 0.4 Mg/1 Ml Vial/Carp) 0.1 mg IV Q5M PRN PRN Reason: Oversedation/Resp depression Stop: 03/15/25 17:43 Ondansetron HCl (Ondansetron Inj 2 Mg/Ml 2 Ml Vial) 4 mg IV Q6H PRN PRN Reason: Nausea &/or Vomiting Stop: 03/15/25 17:43 Ondansetron HCl (Ondansetron 4 Mg Od Tab) 4 mg PO Q6H PRN PRN Reason: Nausea Stop: 03/15/25 17:43 Oxycodone HCl (Oxycodone Hcl Ir 5 Mg Tab (Immediate Release)) 5 - 10 mg PO Q4H PRN PRN Reason: Pain & Pre PT Stop: 02/27/25 17:43 Last Admin: 02/15/25 06:06 Dose: 10 mg Pneumococcal Polyvalent Vaccine (Do Not Administer Pneumococcal Vaccine) 1 each N/A PRN PRN PRN Reason: Notification Stop: 03/15/25 17:43 Polyethylene Glycol (Polyethylene (Miralax) 17 Gm Pack) 17 gm PO Q6 [facility] Stop: 03/16/25 05:59 Last Admin: 02/15/25 06:02 Dose: 17 gm Senna/Docusate Sodium (Docusate Sodium/Senna 50/8.6mg Tab) 2 tab PO HS [facility] Stop: 03/15/25 20:59 Last Admin: 02/14/25 20:14 Dose: 2 tab Sodium Biphosphate/Sodium Phosphate (Sod Phosphate/Sod Biphosphate Enema 132 Ml Btl) 132 ml DE ONE PRN PRN Reason: Constipation Stop: 03/15/25 17:43 Tramadol HCl (Tramadol Hcl 50 Mg Tablet) 50 - 100 mg PO Q4H PRN PRN Reason: Moderate-Severe pain & Pre PT Stop: 03/15/25 17:43 Last Admin: 02/14/25 05:39 Dose: 50 mg Valsartan (Valsartan 80 Mg Tab) 80 mg PO HS [facility] Stop: 03/15/25 20:59
[2025-02-15] MEDS: SODIUM CHLORIDE 0.9% 1,000 ML IV ONE (08:22)
--- NOTE | 2025-02-15 10:22 | Orthopedic Progress Note ---
Date of Service February 15, 2025 Assessment & Plan (1) Spinal stenosis, lumbar region with neurogenic claudication: Plan: At this time we will continue physical therapy monitor his ZBIGNIEW operatively discharge home the next few days. Admission and Anticipated Discharge Date Admission Date: February 13, 2025 Subjective Back pain controlled leg symptoms markedly improved Physical Exam Physical Exam: Patient is comfortable in bed. Constricted testing. Results & Data Vital Signs (Past 12 Hours) Vital Signs Temp Pulse Resp BP Pulse Ox O2 Del Method 02/15/25 08:12 36.4 C L 68 18 102/63 98 Room Air 02/15/25 08:00 36.4 C L 68 16 102/63 98 Room Air Queries Orthopedic Spine Acute Posthemorrhagic Anemia: Yes
--- NOTE | 2025-02-15 17:42 | Nephrology Consultation ---
Date of Consultation February 15, 2025 Assessment & Plan (1) LUC (acute kidney injury): plateau'd nonoliguric stage 1 LUC on nonalbuminuric CKD3A w/ baseline creatinine 1.2-1.3. suspect ischemic ATN at this point given sustained relative mild hypotension. may worsen before it improves. he is feeling well and doing well clinically. his urine sediment early this month in preop work up was somewhat active (and w/ e/o mild dehydration) and will need to compare to that -agree w/ holding ARB, SGLT2i, metformin -SBP remains a bit soft in 100s today and will lower atenolol dose to 25 mg hs from 50 mg -repeat UA ordered -no further IVF for now; no particular indication for XR or renal imaging unless trajectory change Care coordinated w/ Dr Staton re BP medications, working dx, further tests via TText; we are in agreement. History of Present Illness Reason for Consultation: LUC Requesting Physician: Dr Staton Attending Physician: Silver Esteban, DO History of Present Illness 79-year-old male whom I am asked to evaluate for acute kidney injury underwent February 13 lumbar spine decompression with significant intraoperative blood loss and subsequent hypotension. Past medical history includes nonalbuminuric CKD 3 with a baseline creatinine of 1.2-1.3, hypertension, diabetes, abdominal aortic aneurysm, intermittent/someday tobacco use (occasional pipe smoker); hyperlipidemia; stone for which no surgical intervention needed; 2018 history of prostate cancer status post CyberKnife radiation and brachytherapy, chronic ambulatory dysfunction/walker dependent in part due to neuropathy. He was on twice daily naproxen as needed prior to admission. Also w/ remote h/o transfusion reaction in wake of first spinal surgery which was also c/b bleeding. HIs admitting creatinine was 1.5 the day after surgery, up to 1.8 today. Had been 1.3 on January 20, 2025, which comes to an EGFR in the high 50s. Hemoglobin was 13.4 earlier this month and 9.4 postop; dropped to 8 on February 05 9 AM labs and same range today. Per report, during the procedure, patient lost approximately 1.2L blood but w/ no intraoperative hypotension and received 2.6L NS and 25 gm 5% albumin. After the procedure, SBP was in 70-80s for about 1 hr in the PACU and generally in 90-100s since. He has not had pRBC; has had 1L NS since arriving to floor. valsartan and empagliflozin and metformin all on hold since procedure. BG have been elevated on dexamethasone/postop. he is eating and voiding; no sob; ambulating w/ walker and no presyncopal sx or exertional dyspnea; no edema; no rash or f. Allergies Allergy/AdvReac Type Severity Reaction Status Date / Time No Known Allergies Allergy Verified 02/13/25 09:51 Home Medications Medication Instructions Recorded Confirmed Type acetaminophen 500 mg tablet 500 mg PO QID PRN Pain 01/19/25 02/13/25 History atenolol 50 mg tablet 50 mg PO HS 01/19/25 02/13/25 History atorvastatin 20 mg tablet 20 mg PO HS 01/19/25 02/13/25 History empagliflozin 10 mg tablet 10 mg PO QAM 01/19/25 02/13/25 History (Jardiance) metformin 1,000 mg tablet 1,000 mg PO BID 01/19/25 02/13/25 History naproxen sodium 220 mg tablet 220 mg PO BID PRN Pain 01/19/25 02/13/25 History (Aleve) semaglutide 0.25 mg or 0.5 mg (2 0.5 mg subcut WK diabetes 01/19/25 02/13/25 History mg/3 mL) subcutaneous pen injector (Ozempic) valsartan 80 mg tablet (Diovan) 80 mg PO HS 01/19/25 02/13/25 History oxycodone 5 mg tablet 5 mg PO Q6H PRN pain #30 tabs 02/15/25 Rx tramadol 50 mg tablet 50 mg PO Q6H PRN pain, moderate 02/15/25 Rx #30 tabs Patient History Medical History AAA (abdominal aortic aneurysm) 3.3cm per Oct 2024 u/s per PCP records Diabetes mellitus, type 2 Hyperlipidemia Hypertension Degenerative disc disease Chronic kidney disease stage 3 - monitoring Hx of renal calculi passed on his own. History of prostate cancer ~2017 - treated with CyberKnife radiation treatments & had gold material treatment([facility] monitoring currently, PSA WNL since. Surgical History History of hydrocelectomy unilateral History of colonoscopy History of prostate biopsy S/P lumbar spinal fusion L3-S1 (~2011/2012) Dr John at [facility] Family History Other No family history of adverse response to anesthesia Social History Smoking Status: Current some day smoker Tobacco Type: Pipe Cigarettes Per Day: pipe occasional (advised on npo policy); Second Hand Exposure: No; Do You Dip or Chew Tobacco: No; Tobacco Cessation Education Requested by Patient: No Hx Alcohol Use: Yes Hx Substance Use: No Preferred Language: [place] Communication Ability: Effective Data Entry Representative Required: No Beliefs That Will Affect Care: None Current Living Situation: Spouse Other Information That Helps Us Care for You: No Feels Safe at Home: Yes Safety Concerns: Feels Safe At This Time Assistive Devices: Walker Review of Systems 2 Review of Systems: All systems reviewed & are unremarkable except as noted in HPI & below Physical Exam 2 Constitutional: well developed, well nourished and average body habitus; no acute distress Eyes: EOM intact bilaterally ENMT: Ears: no external ear abnormality Nose: no external nose abnormality Mouth: + dry oral mucous membranes Neck: no nuchal rigidity Respiratory: normal respiratory effort Auscultation: + diminished lung sounds (on RA) Cardiovascular: RRR, no murmur, no edema Gastrointestinal (Abdomen): Inspection/Auscultation: normal bowel sounds P ercussion/Palpation: abdomen soft; abdomen nontender Musculoskeletal: Extremities: strength 5/5 throughout Skin: no rashes, warm and dry Neurologic: saab, fluent speech, no tremor Psychiatric: Orientation: alert and oriented x 3 Speech: normal rate/rhythm/volume of speech Results & Data Vital Signs (Past 12 Hours) Vital Signs Temp Pulse Resp BP Pulse Ox O2 Del Method 02/15/25 16:00 36.7 C 63 18 104/66 99 Room Air 02/15/25 08:12 36.4 C L 68 18 102/63 98 Room Air 02/15/25 08:00 36.4 C L 68 16 102/63 98 Room Air Laboratory Results 02/15/25 06:20 02/15/25 06:20 Diagnostic Findings no recent XR or renal imaging
[2025-02-15] MEDS: HYDROmorphone INJ 0.5 MG/0.5 ML SYR IV PRN (17:46)
[2025-02-15] MEDS: ATENOLOL 25 MG TABLET PO SCH (20:23)
[2025-02-16 03:31] LABS: Appearance Urine Clear (Clear); Bacteria Urine Automated None Seen (None Seen); Bilirubin Urine Negative (Negative); Blood Urine 2+ (Negative); Cast Urine Automated 0-2 /lpf (0-2); Color Urine Yellow; Epithelial Cell Urine Auto 0-2 /hpf (0-2); Glucose Urine UA Negative (Negative); Ketones Urine Negative (Negative); Leukocyte Esterase Urine 1+ (Negative); Nitrite Urine Negative (Negative); Protein Urine Negative (Negative); RBC Urine Automated 0-2 /hpf (0-2); Specific Gravity Urine 1.006 (1.000-1.030); Urobilinogen Urine Negative (Negative); pH Urine 5.5 (4.5-7.5)
--- NOTE | 2025-02-16 07:55 | Hospitalist Progress Note ---
Date of Service February 16, 2025 Assessment & Plan (1) Status post lumbar spine operative procedure for decompression of spinal cord: (2) Acute blood loss as cause of postoperative anemia: (3) Spinal stenosis, lumbar region with neurogenic claudication: (4) Diabetes mellitus, type 2: (5) Hypertension: (6) Chronic kidney disease: Plan Patient s/p lumbar procedure for decompression of the lumbar spine with significant amount of blood loss intraoperatively. Patient was hypotensive and was resuscitated with IV fluids and albumin. Patient now asymptomatic on the medical floor. Hgb 8.0 for past 2 days, but down to 6.4 today. Pt received IVF yesterday for Cr 1.8, so perhaps dilutional as well. Pt is feeling well, denies any dizziness, chest pain, is ambulating, BP is improved. Current BP 111/59 Pt feels well, no chest pain, dizziness, not tachycardic. Been ambulating. Will repeat H&H now, discussed w/ surgeon Pt w/ history of severe reaction to blood transfusion in the past, for now will hold off and will monitor closely Monitor H&H, consider IV iron infusion Continue to monitor hemoglobin, consider transfusion of PRBCs if hemoglobin less than 7 and/or patient becomes symptomatic. Hold Diovan due to blood pressure Atenolol has hold parameters, hold if meets criteria LUC Cr 1.8 (on 02/15), gave again IVF and discussed w/ nephrology Now Cr improved to 1.3 cont. to monitor renal function Short acting insulin sliding scale per parameters to manage his diabetes Monitor electrolytes and renal function Pain management and VTE prophylaxis per surg. attending Admission and Anticipated Discharge Date Admission Date: February 13, 2025 Subjective Pt seen in follow up of med consult, pt s/p lumbar spinal surgery Hgb 8.0 this AM past 2 days, today down to 6.4 (pt received IVF yesterday for Cr 1.8) Pt sitting up in bed in NAD, BP 111/59 Pt says he feels well, says he ambulated in hallway. Pt's RN at the bedside. denies chest pain, dizziness, shortness of breath Pt reports hx of reaction to blood transfusion in the past Cr elevated yesterday at 1.8, today down to 1.3 Will repeat H&H now. Pt is feeling well, BP is improved. Pt would like to avoid blood transfusion give previous reaction. Discussed w/ surgeon over the phone. Review of Systems 2 Review of Systems: All systems reviewed & are unremarkable except as noted in Subjective Physical Exam Physical Exam: Constitutional: WD/WN M in no acute distress HEENT: Mucous membranes moist. Sclera clear Neck: Soft, no adenopathy Lungs: Clear to auscultation, decreased, no wheezes rales or rhonchi CV: S1-S2, regular Abdomen: Soft, nontender, nondistended Extremities: No significant edema, moves extremities Musculoskeletal/ back: + Surgical dressing ZBIGNIEW drain Neuro/psych: awake, alert, answers appropriately, speech fluent, no facial asymmetry, moves extremities Results & Data Results & Data Vital Signs (Past 12 Hours) Vital Signs Temp Pulse Resp BP Pulse Ox O2 Del Method 02/15/25 20:10 36.7 C 71 16 113/64 98 Room Air Laboratory Results 02/16/25 02/16/25 02/16/25 Range/Units 09:50 07:43 07:17 WBC 7.75 (4.8-10.8) K/ul RBC 2.06 L (4.70-6.10) M/uL Hgb 6.3 L* 6.4 L* (14.0-18.0) g/dl Hct 18.4 L* 18.3 L* (42.0-52.0) % MCV 88.8 (80.0-100.0) fL MCH 31.1 (25.0-34.0) pg MCHC 35.0 (32.0-36.0) g/dL RDW Std Deviation 41.9 (36.4-46.3) fL RDW Coeff of Laura 13.0 (11.5-14.5) % Plt Count 131 (130-400) K/uL MPV 10.4 (9.4-12.4) fL Sodium 135 L (136-145) mmol/L Potassium 4.4 (3.5-5.1) mmol/L Chloride 107 (98-107) mmol/L Carbon Dioxide 24 (21-32) mmol/L Anion Gap 4 (3-11) BUN 39 H (6-23) mg/dl Creatinine 1.31 D (0.6-1.4) mg/dl Est Cr Clr Drug Dosing 48.5 ml/min eGFR 54.69 BUN/Creatinine Ratio 29.8 H (10-20) Glucose 156 H (70-99(Fasting)) mg/dl POC Glucose 184 H (70-99) mg/dl Calcium 8.6 (8.6-10.3) mg/dl Phosphorus 2.3 L (2.5-4.9) mg/dl Magnesium 1.9 (1.7-2.4) mg/dl Urine Color Urine Appearance (Clear) Urine pH (4.5-7.5) Ur Specific Globe (1.000-1.030) Urine Protein (Negative) Urine Glucose (UA) (Negative) Urine Ketones (Negative) Urine Blood (Negative) Urine Nitrite (Negative) Urine Bilirubin (Negative) Urine Urobilinogen (Negative) Ur Leukocyte Esterase (Negative) Urine WBC (Auto) (0-5) /hpf Urine RBC (Auto) (0-2) /hpf U Hyaline Cast (Auto) (0-2) /lpf U Epithel Cells (Auto) (0-2) /hpf Urine Bacteria (Auto) (None Seen) Crossmatch 02/16/25 02/15/25 02/15/25 Range/Units 03:18 21:19 17:40 WBC (4.8-10.8) K/ul RBC (4.70-6.10) M/uL Hgb (14.0-18.0) g/dl Hct (42.0-52.0) % MCV (80.0-100.0) fL MCH (25.0-34.0) pg MCHC (32.0-36.0) g/dL RDW Std Deviation (36.4-46.3) fL RDW Coeff of Laura (11.5-14.5) % Plt Count (130-400) K/uL MPV (9.4-12.4) fL Sodium (136-145) mmol/L Potassium (3.5-5.1) mmol/L Chloride (98-107) mmol/L Carbon Dioxide (21-32) mmol/L Anion Gap (3-11) BUN (6-23) mg/dl Creatinine (0.6-1.4) mg/dl Est Cr Clr Drug Dosing ml/min eGFR BUN/Creatinine Ratio (10-20) Glucose (70-99(Fasting)) mg/dl POC Glucose 209 H 240 H (70-99) mg/dl Calcium (8.6-10.3) mg/dl Phosphorus (2.5-4.9) mg/dl Magnesium (1.7-2.4) mg/dl Urine Color Yellow Urine Appearance Clear (Clear) Urine pH 5.5 (4.5-7.5) Ur Specific Globe 1.006 (1.000-1.030) Urine Protein Negative (Negative) Urine Glucose (UA) Negative (Negative) Urine Ketones Negative (Negative) Urine Blood 2+ H (Negative) Urine Nitrite Negative (Negative) Urine Bilirubin Negative (Negative) Urine Urobilinogen Negative (Negative) Ur Leukocyte Esterase 1+ H (Negative) Urine WBC (Auto) 6-10 H (0-5) /hpf Urine RBC (Auto) 0-2 (0-2) /hpf U Hyaline Cast (Auto) 0-2 (0-2) /lpf U Epithel Cells (Auto) 0-2 (0-2) /hpf Urine Bacteria (Auto) None Seen (None Seen) Crossmatch 02/15/25 02/15/25 02/13/25 Range/Units 11:37 11:36 09:48 WBC (4.8-10.8) K/ul RBC (4.70-6.10) M/uL Hgb (14.0-18.0) g/dl Hct (42.0-52.0) % MCV (80.0-100.0) fL MCH (25.0-34.0) pg MCHC (32.0-36.0) g/dL RDW Std Deviation (36.4-46.3) fL RDW Coeff of Laura (11.5-14.5) % Plt Count (130-400) K/uL MPV (9.4-12.4) fL Sodium (136-145) mmol/L Potassium (3.5-5.1) mmol/L Chloride (98-107) mmol/L Carbon Dioxide (21-32) mmol/L Anion Gap (3-11) BUN (6-23) mg/dl Creatinine (0.6-1.4) mg/dl Est Cr Clr Drug Dosing ml/min eGFR BUN/Creatinine Ratio (10-20) Glucose (70-99(Fasting)) mg/dl POC Glucose 295 H 306 H* (70-99) mg/dl Calcium (8.6-10.3) mg/dl Phosphorus (2.5-4.9) mg/dl Magnesium (1.7-2.4) mg/dl Urine Color Urine Appearance (Clear) Urine pH (4.5-7.5) Ur Specific Globe (1.000-1.030) Urine Protein (Negative) Urine Glucose (UA) (Negative) Urine Ketones (Negative) Urine Blood (Negative) Urine Nitrite (Negative) Urine Bilirubin (Negative) Urine Urobilinogen (Negative) Ur Leukocyte Esterase (Negative) Urine WBC (Auto) (0-5) /hpf Urine RBC (Auto) (0-2) /hpf U Hyaline Cast (Auto) (0-2) /lpf U Epithel Cells (Auto) (0-2) /hpf Urine Bacteria (Auto) (None Seen) Crossmatch See Detail Medications Administered Current Inpatient Medications Acetaminophen (Acetaminophen 500 Mg Tab) 1,000 mg PO Q8H PRN PRN Reason: MILD Pain Scale 1,2,3 & Pre PT Stop: 03/15/25 17:43 Al Hydrox/Mg Hydrox/Simethicone (Aluminum/Magnesium Susp 30 Ml Udc) 30 ml PO Q6H PRN PRN Reason: Dyspepsia Stop: 03/15/25 17:43 Atenolol (Atenolol 25 Mg Tablet) 25 mg PO HS [facility] Stop: 03/17/25 20:59 Last Admin: 02/15/25 20:23 Dose: 25 mg Atorvastatin Calcium (Atorvastatin 20 Mg Tab) 20 mg PO HS [place] Stop: 03/15/25 20:59 Last Admin: 02/15/25 20:15 Dose: 20 mg Bisacodyl (Bisacodyl 10 Mg Supp) 10 mg HI DAILY PRN PRN Reason: Constipation Stop: 03/15/25 17:43 Dextrose (Dextrose 50% 50 Ml Syringe) 25 - 50 ml IV UD PRN; Protocol PRN Reason: Hypoglycemia Protocol Stop: 03/15/25 19:19 Diphenhydramine HCl (Diphenhydramine Capsule 25 Mg Cap) 25 mg PO Q6H PRN PRN Reason: Allergic Rhinitis/Insomnia Stop: 03/15/25 17:43 Famotidine (Famotidine 20 Mg Tab) 20 mg PO Q12H PRN PRN Reason: Dyspepsia Stop: 03/15/25 17:43 Glucagon (Glucagon For Inj 1 Mg Vial) 1 mg SQ UD PRN; Protocol PRN Reason: Hypoglycemia Protocol Stop: 03/15/25 19:19 Glucose (Glucose 40% Gel 15 Gm Tube) 15 - 30 gm PO UD PRN; Protocol PRN Reason: Hypoglycemia Protocol Stop: 03/15/25 19:19 Glucose (Glucose 10 Tab/Tube) 4 - 8 tab PO UD PRN; Protocol PRN Reason: Hypoglycemia Protocol Stop: 03/15/25 19:19 Hydromorphone HCl (Hydromorphone Inj 0.5 Mg/0.5 Ml Syr) 0.5 mg IV Q3H PRN PRN Reason: MODERATE Pain (Scale 4,5,6) & Pre PT Stop: 02/27/25 17:43 Last Admin: 02/15/25 17:46 Dose: 0.5 mg Hydromorphone HCl (Hydromorphone Inj 1 Mg/Ml Syringe) 1 mg IV Q3H PRN PRN Reason: SEVERE Pain (Scale 7,8,9,10) Stop: 02/27/25 17:43 Last Admin: 02/14/25 15:34 Dose: 1 mg Hydroxyzine HCl (Hydroxyzine Hcl 25 Mg Tab) 25 mg PO Q8H PRN PRN Reason: Anxiety Stop: 03/15/25 17:43 Promethazine HCl (Phenergan) 12.5 mg in 50.5 mls @ 202 mls/hr IV Q6H PRN PRN Reason: Nausea And Vomiting Stop: 03/15/25 17:43 Dexamethasone 6 mg/ Syringe 1.5 mls @ 1 mls/min IV DAILY [facility] Stop: 02/16/25 09:02 Last Admin: 02/15/25 08:23 Dose: 1 mls/min Influenza Virus Vaccine Quadrival (Do Not Administer Flu Vaccine) 1 each N/A PRN PRN PRN Reason: Notification Stop: 03/15/25 17:43 Insulin Aspart (Insulin Aspart Per Unit Charge) 0 units SC ACHS [facility] Stop: 03/15/25 20:59 Last Admin: 02/15/25 21:40 Dose: 5 units Insulin Glargine (Lantus Per Unit Charge) 15 units SC DAILY [facility] Stop: 02/16/25 09:01 Last Admin: 02/15/25 08:35 Dose: 15 units Lorazepam (Lorazepam 0.5 Mg Tab) 0.5 mg PO Q8H PRN PRN Reason: Sedation/Anxiety Stop: 03/15/25 17:43 Lorazepam (Lorazepam 2 Mg/1 Ml Vial) 0.5 mg IV Q8H PRN PRN Reason: Sedation/Anxiety Stop: 03/15/25 17:43 Magnesium Hydroxide (Magnesium Hydroxide Susp 30 Ml Udc) 30 ml PO Q24H PRN PRN Reason: Constipation Stop: 03/15/25 17:43 Metoclopramide HCl (Metoclopramide Hcl Inj 5 Mg/Ml 2 Ml Vial) 10 mg IV Q6H PRN PRN Reason: Nausea &/or Vomiting Stop: 03/15/25 17:43 Miscellaneous (Carbohydrates For Hypoglycemia ) 15 - 30 gm PO UD PRN PRN Reason: Hypoglycemia Protocol Stop: 03/15/25 19:19 Naloxone HCl (Naloxone Hcl 0.4 Mg/1 Ml Vial/Carp) 0.1 mg IV Q5M PRN PRN Reason: Oversedation/Resp depression Stop: 03/15/25 17:43 Ondansetron HCl (Ondansetron Inj 2 Mg/Ml 2 Ml Vial) 4 mg IV Q6H PRN PRN Reason: Nausea &/or Vomiting Stop: 03/15/25 17:43 Ondansetron HCl (Ondansetron 4 Mg Od Tab) 4 mg PO Q6H PRN PRN Reason: Nausea Stop: 03/15/25 17:43 Oxycodone HCl (Oxycodone Hcl Ir 5 Mg Tab (Immediate Release)) 5 - 10 mg PO Q4H PRN PRN Reason: Pain & Pre PT Stop: 02/27/25 17:43 Last Admin: 02/16/25 07:36 Dose: 10 mg Pneumococcal Polyvalent Vaccine (Do Not Administer Pneumococcal Vaccine) 1 each N/A PRN PRN PRN Reason: Notification Stop: 03/15/25 17:43 Senna/Docusate Sodium (Docusate Sodium/Senna 50/8.6mg Tab) 2 tab PO HS [place] Stop: 03/15/25 20:59 Last Admin: 02/15/25 20:15 Dose: 2 tab Sodium Biphosphate/Sodium Phosphate (Sod Phosphate/Sod Biphosphate Enema 132 Ml Btl) 132 ml HI ONE PRN PRN Reason: Constipation Stop: 03/15/25 17:43 Tramadol HCl (Tramadol Hcl 50 Mg Tablet) 50 - 100 mg PO Q4H PRN PRN Reason: Moderate-Severe pain & Pre PT Stop: 03/15/25 17:43 Last Admin: 02/14/25 05:39 Dose: 50 mg Valsartan (Valsartan 80 Mg Tab) 80 mg PO HS [facility] Stop: 03/15/25 20:59
[2025-02-16 08:03] LABS: BUN Creatinine Ratio 29.8 (10-20); Calcium 8.6 mg/dl (8.6-10.3); Creatinine Clr Calc Pharmacy 48.5 ml/min; Magnesium 1.9 mg/dl (1.7-2.4); Phosphorus 2.3 mg/dl (2.5-4.9); Potassium 4.4 mmol/L (3.5-5.1)
[2025-02-16 08:08] LABS: Hematocrit (blood only) 18.3 % (42.0-52.0); Hemoglobin 6.4 g/dl (14.0-18.0); Mean Corpuscular Hemoglobin 31.1 pg (25.0-34.0); Mean Corpuscular Volume 88.8 fL (80.0-100.0); Mean Platelet Volume 10.4 fL (9.4-12.4); Platelet Count 131 K/uL (130-400); RDW Standard Deviation 41.9 fL (36.4-46.3); Red Blood Count 2.06 M/uL (4.70-6.10); White Blood Count 7.75 K/ul (4.8-10.8)
[2025-02-16 10:36] LABS: Hematocrit (blood only) 18.4 % (42.0-52.0); Hemoglobin 6.3 g/dl (14.0-18.0)
[2025-02-16] MEDS: IRON SUCROSE 300 MG in SODIUM CHLORIDE 0.9% 250 ML IV ONE (11:01)
--- NOTE | 2025-02-16 12:34 | Orthopedic Progress Note ---
Date of Service February 16, 2025 Assessment & Plan (1) Status post lumbar spine operative procedure for decompression of spinal cord: Plan: At this time we have discussed possible blood transfusion. He did have a reaction to an transfusion after his last surgery several years ago. He is currently stable. We both agree continued observation is warranted. Will begin iron treatment today. Continue physical therapy as tolerated. Admission and Anticipated Discharge Date Admission Date: February 13, 2025 Subjective Patient's back pain is controlled. Leg pain is improved. He is tolerating physical therapy. Denies any shortness of breath or weakness. Physical Exam Physical Exam: On exam he is currently in bed. He is constricted testing. Appears comfortable. Results & Data Vital Signs (Past 12 Hours) Vital Signs Temp Pulse Resp BP Pulse Ox O2 Del Method 02/16/25 11:09 36.9 C 63 112/64 99 Room Air 02/16/25 10:59 37.6 C H 65 15 110/63 96 Room Air 02/16/25 08:04 36.9 C 69 16 111/59 L 97 Room Air Queries Orthopedic Spine Acute Posthemorrhagic Anemia: Yes
--- NOTE | 2025-02-16 16:39 | Nephrology Progress Note ---
Date of Service February 16, 2025 Assessment & Plan (1) LUC (acute kidney injury): Plan: plateau'd nonoliguric stage 1 LUC on nonalbuminuric CKD3A w/ baseline creatinine 1.2-1.3. suspect ischemic ATN at this point given sustained relative mild hypotension. Creatinine down to 1.3 which is close to baseline. Blood pressure is stable now. -agree w/ holding ARB, SGLT2i, metformin -no further IVF for now; no particular indication for XR or renal imaging unless trajectory change From renal standpoint patient can be discharged. Admission and Anticipated Discharge Date Admission Date: February 13, 2025 Subjective Seen for acute kidney injury after back surgery. He feels better today. Still has incisional pain. Creatinine downtrending to 1.3. Review of Systems 2 Review of Systems: All other systems were reviewed and negative except as noted in HPI Physical Exam 2 Physical Exam: General exam: Appears comfortable, no acute distress HEENT: Pupils are equal and reactive to light Neck: No JVD, neck is supple trachea is midline Respiratory system: Clear breath sounds bilaterally. Gastrointestinal: Abdomen is soft, non distended, non tender, bowel sounds are present CVS: Regular rate and rhythm. No murmurs, rubs or gallops Musculoskeletal: No joint or muscle tenderness Extremities: Non tender, no edema, peripheral pulses are present Neuro: Oriented, no tremors, no focal neurological deficits Skin: No rashes Results & Data Vital Signs (Past 12 Hours) Vital Signs Temp Pulse Resp BP Pulse Ox O2 Del Method 02/16/25 14:56 36.8 C 65 16 118/65 100 Room Air 02/16/25 12:42 37.1 C 66 16 111/65 99 Room Air 02/16/25 11:09 36.9 C 63 112/64 99 Room Air 02/16/25 10:59 37.6 C H 65 15 110/63 96 Room Air 02/16/25 08:04 36.9 C 69 16 111/59 L 97 Room Air Laboratory Results 02/16/25 07:17 02/16/25 07:17 WBC 7.75 RBC 2.06 L MCV 88.8 MCH 31.1 MCHC 35.0 RDW Std Deviation 41.9 RDW Coeff of Laura 13.0 Plt Count 131 MPV 10.4 Phosphorus 2.3 L
[2025-02-16 17:01] LABS: Hematocrit (blood only) 20.5 % (42.0-52.0); Hemoglobin 7.2 g/dl (14.0-18.0)
[2025-02-17 07:39] LABS: Hematocrit (blood only) 17.6 % (42.0-52.0); Hemoglobin 6.1 g/dl (14.0-18.0); Mean Corpuscular Hemoglobin 30.8 pg (25.0-34.0); Mean Corpuscular Hgb Conc 34.7 g/dL (32.0-36.0); Mean Corpuscular Volume 88.9 fL (80.0-100.0); Mean Platelet Volume 10.5 fL (9.4-12.4); Platelet Count 146 K/uL (130-400); RDW Coefficient of Variation 13.2 % (11.5-14.5); RDW Standard Deviation 42.9 fL (36.4-46.3); Red Blood Count 1.98 M/uL (4.70-6.10); White Blood Count 8.14 K/ul (4.8-10.8)
[2025-02-17 07:51] LABS: BUN Creatinine Ratio 32.1 (10-20); Calcium 8.2 mg/dl (8.6-10.3); Creatinine Clr Calc Pharmacy 47.5 ml/min; Phosphorus 2.9 mg/dl (2.5-4.9); Potassium 4.6 mmol/L (3.5-5.1)
--- NOTE | 2025-02-17 08:03 | Hospitalist Progress Note ---
<Statement entered by Aidan Mann DO - 02/17/25 14:26> I have seen and examined the patient and have discussed the case with the advance practice provider. I have reviewed the advanced practitioner's documentation, and I agree with, and take responsibility for that plan of care. Patient seen evaluated, denies any lightheadedness dizziness, shortness of breath, chest pain. He reports he was up and ambulating in the halls without any symptoms. Reviewed PT notes, documented patient walked 250 feet without any symptoms. Continue to monitor hemoglobin. Patient hesitant to be transfused due to previous reactions. Transfuse if hemoglobin continues to drop or patient starts to have symptoms. Further plan of care as outlined below I spent a total of 14 minutes coordinating, documenting, and providing care for this patient excluding time spent by another provider/QHP. Date of Service February 17, 2025 Assessment & Plan (1) Spinal stenosis, lumbar region with neurogenic claudication: (2) Status post lumbar spine operative procedure for decompression of spinal cord: Plan: Alexi Freeman is an 79y/o M with PMHx significant for DMII, HLD, HTN, AAA, CKD stage IIIa, anemia of chronic disease and history of prostate cancer who is being seen in routine postoperative medical consultation after undergoing elective hardware removal L3-S1, decompression L2-L3 and L5-S1 and fusion L2-S1 performed by Dr. Esteban on 02/13/2025. Was previously hypotensive s/p above operation and was resuscitated with 2600cc of NSS and 500cc of albumin with notable BP improvement. Pain under good control on current regimen - continue as per primary service. Reports feeling well - denies any lightheadedness/dizziness, CP or SOB. ZBIGNIEW drain x 1 intact with minimal serosanguineous output. Surgical dressings C/D/I. (3) Acute blood loss as cause of postoperative anemia: Plan: Significant amount of intraoperative blood loss totaling 1250cc. Notably anemic postoperatively with Hgb downtrending to 6.1 today s/p dose of IV Venofer on 02/16. Above IVF resuscitation with additional dilutional effect. Also received an additional 1L NSS on 02/15 ISO LUC as per below. Patient reports h/o significant blood transfusion reaction after his first lumbar surgery during which he also had a significant amount of blood loss. Will hold off on blood transfusion for now per discussion with patient and Dr. Esteban as he remains asymptomatic in this regard. Repeat H/H around 6P this evening. May need to consider another IV Venofer infusion. (4) Acute kidney injury superimposed on stage 3a chronic kidney disease: Plan: Appreciate nephrology consult. Suspect LUC 2/2 ischemic ATN ISO hypotension postoperatively. Holding ARB, SGLT2 inhibitor and metformin. Now improving s/p IVF resuscitation as per above. Cr approaching toward baseline, baseline Cr around 1.1-1.3 per chart review. No indication for further IVF at this point and no particular indication for XR and renal imaging unless there is decline. Avoid nephrotoxic medications when able. Monitor renal function closely with daily AM labs and renally dose medications when able. (5) Diabetes mellitus, type 2: Plan: Hold home agents, SSI regimen while inpatient. BSG stable. Continue BSG checks ACHS. Hgb A1c was 7.5% last month. (6) Hypertension: Plan: Continue to hold valsartan 2/2 softer BP. Continue decreased atenolol dose of 25mg HS as ordered by nephrology. Continue routine BP monitoring. Other Chronic Medical Conditions: HLD - Continue statin. DVT Prophylaxis: SCDs/TEDs only for now ISO anemia as per above. Code Status: FULL CODE PCP: Calvin Resendez MD Disposition: Discharge plans per primary service however recommend extended inpatient stay to monitor H/H trend. We will follow the patient with you during their hospital stay. You can reach a member of the [facility] Hospitalist Team 11/06 via [employer]. Patient seen in collaboration with Dr. Mann. Please see addendum. I spent a total of 40 minutes coordinating, documenting, and providing care for this patient excluding time spent in the performance of separately billed services or time spent by another provider/QHP. This included personally reviewing all current laboratories and imaging studies, medical reconciliation, outpatient chart review and discussion with specialists. This chart was completed in part utilizing Speech Voice Recognition Software. Grammatical errors, random word insertions, pronoun errors, and incomplete sentences are an occasional consequence of this system due to software l imitations, ambient noise, and hardware issues. Any formal questions or concerns about the content, text, or information contained within the body of this dictation should be directly addressed to the provider for clarification. Admission and Anticipated Discharge Date Admission Date: February 13, 2025 Subjective Patient seen and examined in room W62. [facility]. Discussed results of CBC this morning and decline in H/H. He remains asymptomatic in this regard. Denies any lightheadedness/dizziness, SOB, chest pain, N/V or visual changes. Reports he is ambulating around without much issue. Surgical bandaging with minimal seepage. ZBIGNIEW drain x 1 intact with scant amount of serosanguineous output. Mentions that he had a blood transfusion reaction following his previous lumbar spine operation which was >10 years ago. Recalls he became "flushed" and that the transfusion had to be terminated however he cannot recall any additional symptoms he had during this event. Cannot locate any further information regarding this in his chart review. Review of Systems Review of Systems: At least ten systems reviewed and negative, except as noted in the subjective section. Physical Exam Physical Exam: General: WD/WN. NAD. Sitting up in bed. Very pleasant. + pale coloration. A+Ox3. Appears comfortable. HEENT: Normocephalic, atraumatic. Conjunctivae normal. External ear and nose normal, oropharynx normal. Respiratory: Normal respiratory effort, lungs clear to auscultation bilaterally. No accessory muscle use. Cardiovascular: Regular rate and rhythm. Normal peripheral pulses. No BLE edema. Abdomen/GI: Normal bowel sounds, soft, nondistended, nontender to palpation in all quadrants. Extremities/MSK: Surgical dressing C/D/I. ZBIGNIEW drain x 1 intact with minimal serosanguineous output. Neurologic: No overt focal deficits, CN's II-XI not formally tested but appear grossly intact bilaterally. Results & Data Results & Data Vital Signs (Past 12 Hours) Vital Signs Temp Pulse Resp BP Pulse Ox O2 Del Method 02/16/25 20:00 37.0 C 69 16 118/66 98 Room Air Laboratory Results Short CBC 02/16/25 02/17/25 Range/Units 15:58 06:41 WBC 8.14 (4.8-10.8) K/ul Hgb 7.2 L 6.1 L* (14.0-18.0) g/dl Hct 20.5 L* 17.6 L* (42.0-52.0) % Plt Count 146 (130-400) K/uL BMP 02/17/25 06:41 Sodium 136 Potassium 4.6 Chloride 108 H Carbon Dioxide 23 BUN 43 H Creatinine 1.34 Glucose 159 H Calcium 8.2 L Diagnostic Findings Lumbar Spine X-Ray 02/13/25 10:55 FL lumbar spine 2-3V CLINICAL HISTORY: L3-S1 HW REMOVAL L2-L3 L5-S1 DECOMPRESSION L2-S1 FUSION COMPARISON STUDY: None FLUOROSCOPY TIME: 28 seconds FLUOROSCOPY IMAGES: 5 EXPOSURE DOSE: 19 mGy FINDINGS: Fluoroscopy was provided for lumbar fusion. IMPRESSION: Intraoperative fluoroscopy. ACT 112: Negative or not required by law. Electronically signed by: Bulmaro Lord M.D. 02/13/2025 3:16 PM (5) Diabetes mellitus, type 2 Diabetes mellitus complication status: without complication Diabetes mellitus extermination supervisor insulin use: without prison use Qualified Code(s): E11.9 - Type 2 diabetes mellitus without complications (6) Hypertension Hypertension type: unspecified Qualified Code(s): I10 - Essential (primary) hypertension
--- NOTE | 2025-02-17 11:09 | Orthopedic Progress Note ---
Date of Service February 17, 2025 Assessment & Plan (1) Spinal stenosis, lumbar region with neurogenic claudication: Plan: At this time he is quite stable we will see how he tolerates physical therapy before considering transfusion. Reassess his hematocrit later today. If he remains stable without clinical signs and comfortable with discharge home tomorrow. Admission and Anticipated Discharge Date Admission Date: February 13, 2025 Subjective Patient's back pain is controlled leg pain markedly improved. He has been tolerating ambulation throughout the room without difficulty. Denies any chest pain shortness of breath or erlinda weakness. Physical Exam Physical Exam: On exam is currently in bed. Is good strength testing. ZBIGNIEW drain shows little to no output. Results & Data Vital Signs (Past 12 Hours) Vital Signs Temp Pulse Resp BP Pulse Ox O2 Del Method 02/17/25 08:44 36.6 C 63 17 100/62 99 Room Air Queries Orthopedic Spine Acute Posthemorrhagic Anemia: Yes
[2025-02-17 17:33] LABS: Hematocrit (blood only) 20.1 % (42.0-52.0); Hemoglobin 6.9 g/dl (14.0-18.0); Mean Corpuscular Hemoglobin 30.7 pg (25.0-34.0); Mean Corpuscular Hgb Conc 34.3 g/dL (32.0-36.0); Mean Corpuscular Volume 89.3 fL (80.0-100.0); Mean Platelet Volume 10.2 fL (9.4-12.4); Platelet Count 186 K/uL (130-400); RDW Coefficient of Variation 13.2 % (11.5-14.5); RDW Standard Deviation 42.5 fL (36.4-46.3); Red Blood Count 2.25 M/uL (4.70-6.10); White Blood Count 8.61 K/ul (4.8-10.8)
[2025-02-17 19:19] VITALS: O2SAT 100
[2025-02-18 07:41] VITALS: BP 122/66; PULSE 64; RESP 18; TEMP 98.1
[2025-02-18 08:00] LABS: Hematocrit (blood only) 20.6 % (42.0-52.0); Hemoglobin 6.9 g/dl (14.0-18.0); Mean Corpuscular Hemoglobin 30.7 pg (25.0-34.0); Mean Corpuscular Hgb Conc 33.5 g/dL (32.0-36.0); Mean Corpuscular Volume 91.6 fL (80.0-100.0); Mean Platelet Volume 9.7 fL (9.4-12.4); Nucleated RBC # (auto) 0.02 K/uL (0.00-0.12); Nucleated RBC % (auto) 0.3 %; Platelet Count 197 K/uL (130-400); RDW Coefficient of Variation 13.2 % (11.5-14.5); RDW Standard Deviation 43.5 fL (36.4-46.3); Red Blood Count 2.25 M/uL (4.70-6.10); White Blood Count 7.72 K/ul (4.8-10.8)
[2025-02-18 08:13] LABS: BUN Creatinine Ratio 28.2 (10-20); Calcium 8.4 mg/dl (8.6-10.3); Creatinine Clr Calc Pharmacy 51.3 ml/min; Magnesium 1.8 mg/dl (1.7-2.4)
--- NOTE | 2025-02-18 09:34 | Discharge Summary ---
Date of Service February 18, 2025 Admission HPI Per Admitting Provider This is an 79-year-old male presents with chronic system back and leg pain and failing course of nonoperative care is here for surgical invention. Principal Diagnosis Lumbar spondylosis with radiculopathy Discharge Data Allergies Allergy/AdvReac Type Severity Reaction Status Date / Time No Known Allergies Allergy Verified 02/13/25 09:51 Consultations 02/13/25 17:44 Consult Hospitalist Routine 02/15/25 08:06 Consult Nephrology Routine Procedures Performed Operation Date: 02/13/25 10:55 Actual Procedures p L3-S1 Hardware Removal, L2-L3, L5-S1 Decompression, L2-S1 Fusion, Spinal Cord Monitoring(Not Applicable) - Silver Esteban DO Ordered Studies 02/13/25 10:55 FL lumbar spine 2-3V Routine Hospital Course (1) Status post lumbar spine operative procedure for decompression of spinal cord: Patient went multilevel lumbar decompression fusion trial as well as taken to orthopedic for postoperative. Postop he progressed appropriately. He did have some issues with low hemoglobin but was asymptomatic and tolerated physical therapy well. He was strength is improved. Pain well-controlled. Subsidy discharged home. Discharge orders and instructions from the chart for further review. Total Time Total Time Spent Total Time Spent (In Minutes): 20 minutes Discharge Plan Discharge Items Patient Disposition: Home - Self-Care Reason For Visit: Lumbar Disc Disease with Radiculopathy, Other Discharge Diagnosis: Lumbar spondylosis with radiculopathy Activity: As commented below Non-emergency contact: Primary Care Provider Call non-emergency contact if: you have any medication questions Follow-up/Referrals: Calvin Resendez MD [Primary Care Provider] - Diet: Regular Addtl Attending Provider Instructions: ACTIVITY RECOMMENDATIONS: SELF CARE INSTRUCTIONS AFTER THORACIC/LUMBAR FUSIONS 1. You may walk to your tolerance. It is good exercise for your legs and back. Expect some back and intermittent leg aches and pains. 2. You may perform "counter-top" level activities (make a sandwich, pieter with a project, etc.). 3. No bending or lifting of more than 10 pounds or back twisting of any nature (roll like a log when turning in bed). 4. You may ride in a car for 20-30 minutes at a time. No driving until after your first visit with your doctor. 5. Frequent changes of position and restricting sitting to 30 minutes at a time will help limit the amount of back spasms and stiffness you may experience. 6. You may discontinue the use of ambulatory aids (cane, crutches, etc.) once your strength and confidence allow. 7. You may online journalist the shower and let water strike your incision when you arrive home at least once daily. Do not take a tub bath, sit in a hot tub or go into a swimming pool until after your first recheck in the office. 8. You may resume previous diet. SPECIAL CARE INSTRUCTIONS: VERY IMPORTANT TO READ AND REVIEW A. Your surgical incision has been closed with a cosmetic suture under the skin that will dissolve in about 6 weeks. In 14 days, you can use a pair of clean scissors and cut the suture that is left outside of the skin at the ends of your incision. 1. The small skin tapes can be removed 7 days after surgery if they have not fallen off by that point. 2. You may keep the wound open to air as much as possible to promote healing after post-op day number 5 unless told otherwise by your doctor. 3. If you think the wound looks like it is becoming infected (redness or worsening drainage) and/or you are experiencing fever, chill or worsening back pain and muscle spasms, contact the office so that we may evaluate you as soon as possible. B. Complications are uncommon, but please contact us if you have any signs or symptoms of: 1. wound infection (fever higher than 102.5 degrees F, redness, separation of wound, drainage, or increasing pain from the incision) 2. blood clots in legs (pain, swelling, redness and warmth in legs) 3. urinary tract infection (fever higher than 102.5 degrees F, burning upon urination or increased frequency of urination) 4. nerve problems (inability to walk on your toes or heels, numbness, loss of bowel or bladder control) 5. any other symptoms that concern you C. Please call the office at if you have any concerns or questions about your operation or recovery. D. No smoking! Smoking drastically decreases the chance of a solid fusion. E. Do not take any anti-inflammatory medications (Indocin, Advil, Motrin, Aspirin, Naprosyn, etc.) as these may inhibit the chance of a solid fusion. Tylenol is okay to take for pain. MANAGING PAIN AFTER SPINAL SURGERY 1. Narcotic medication is intended for short-term use and will be provided for surgical pain. Surgical pain usually lasts for a period of 4-6 weeks. Narcotic medication includes Percocet, Vicodin, Darvocet, Tylenol #3 or Lortab. 2. Longer-term pain is more appropriately treated with non-narcotic medication such as Tylenol ES. 3. Muscle spasm is not appropriately treated with narcotics. Muscle relaxers such as Soma, Flexeril or Skelaxin can be used along with Tylenol ES. 4. Remember that we all live with some "aches and pains". This is not unusual or uncommon after an injury or as we get older. a. Back pain is expected and may include muscle spasms for 4 to 6 weeks after surgery. The pain should gradually improve. If the pain worsens for no apparent reason, please contact the office. b. Intermittent leg pain may also be experienced and should not be concerned about unless it worsens for no apparent reason. If so, please contact the office. 5. We will provide appropriate medication within the normal guidelines of their prescribed use. We will also be very cautious and aware of potential abuse and extended duration of patients' medication needs. a. Pain medications are for your comfort and to assist with sleep and rest so that the tissue can heal. They are not provided in order to return to normal activity and should not be used through the day. To do so or worsening pain at night can result from ongoing tissue damage and development of tolerance to the prescribed medicine. 6. Please allow 2-3 days to process refills. Prescriptions will not be mailed but must be picked up at the office. FOLLOW UP VISIT: Keep your scheduled follow-up appointment. Any questions, please call the office at . Addtl Woods Warden Provider Instructions: You need repeat outpatient lab work, including complete blood count (CBC), within the next week to closely monitor your H/H given your acute postoperative blood loss anemia. This can be completed by your primary care provider (PCP), Dr. Resendez. Please call his office to arrange this @ [phone]. Pending Studies at Discharge: No Stand-Alone Forms: My [facility], Smoking Cessation Medications and DC Order Prescriptions: New tramadol 50 mg tablet 50 mg PO Q6H PRN (Reason: pain, moderate) Qty: 30 0RF oxycodone 5 mg tablet 5 mg PO Q6H PRN (Reason: pain) Qty: 30 0RF Continued atorvastatin 20 mg Tablet 20 mg PO HS valsartan [Diovan] 80 mg Tablet 80 mg PO HS metformin 1,000 mg Tablet 1,000 mg PO BID atenolol 50 mg Tablet 50 mg PO HS Jardiance 10 mg Tablet 10 mg PO QAM Ozempic 0.25 mg or 0.5 mg (2 mg/3 mL) Pen Injector 0.5 mg SUBCUT WK acetaminophen 500 mg Tablet 500 mg PO QID PRN (Reason: Pain) Discontinued naproxen sodium [Aleve] 220 mg Tablet 220 mg PO BID PRN (Reason: Pain) Discharge Orders: Discharge Order (Routine); Ordered 02/18/25 Ordered By: Silver Esteban Admission Data Admit Date/Time: 02/13/25 15:01 Attending Provider: Silver Esteban Admit Provider: Silver Esteban Primary Care Provider: Calvin Resendez Other Providers: Dee Jacobson; Yolette Herrmann; Aidan Mann
--- NOTE | 2025-02-18 10:38 | Hospitalist Progress Note ---
<Statement entered by Aidan Mann, - 02/18/25 12:08> I have seen and examined the patient and have discussed the case with the advance practice provider. I have reviewed the advanced practitioner's documentation, and I agree with, and take responsibility for that plan of care. Patient asymptomatic, ambulating the halls. Looking forward to going home. Hemoglobin reviewed, slightly improved Agreeable with plans for discharge Further plan of care as outlined below I spent a total of 10 minutes coordinating, documenting, and providing care for this patient excluding time spent by another provider/QHP. Date of Service February 18, 2025 Assessment & Plan (1) Spinal stenosis, lumbar region with neurogenic claudication: (2) Status post lumbar spine operative procedure for decompression of spinal cord: Plan: Alexi Freeman is an 79y/o M with PMHx significant for DMII, HLD, HTN, AAA, CKD stage IIIa, anemia of chronic disease and history of prostate cancer who is being seen in routine postoperative medical consultation after undergoing elective hardware removal L3-S1, decompression L2-L3 and L5-S1 and fusion L2-S1 performed by Dr. Esteban on 02/13/2025. Was previously hypotensive s/p above operation and was resuscitated with 2600cc of NSS and 500cc of albumin with notable BP improvement. Pain under good control on current regimen - continue as per primary service. Reports feeling well - denies any lightheadedness/dizziness, CP or SOB. (3) Acute blood loss as cause of postoperative anemia: Plan: Significant amount of intraoperative blood loss totaling 1250cc. Notably anemic postoperatively with Hgb downtrending to 6.1 on 02/17 s/p dose of IV Venofer on 02/16. Above IVF resuscitation with additional dilutional effect. Also received an additional 1L NSS on 02/15 ISO LUC as per below. Patient reports h/o significant blood transfusion reaction after his first lumbar surgery during which he also had a significant amount of blood loss. Will hold off on blood transfusion for now per discussion with patient and Dr. Esteban as he remains asymptomatic in this regard. Repeat H/H this morning remains very low but overall stable at 6.9; encouraged to f/u with PCP within the next week for repeat CBC to closely monitor his H/H - patient expressed understanding of such. (4) Acute kidney injury superimposed on stage 3a chronic kidney disease: Plan: Appreciate nephrology consult. Suspect LUC 2/2 ischemic ATN ISO hypotension postoperatively. Holding ARB, SGLT2 inhibitor and metformin. Now improving s/p IVF resuscitation as per above. Cr now improved, baseline Cr around 1.1-1.3 per chart review. No indication for further IVF at this point and no particular indication for XR and renal imaging unless there is decline. Avoid nephrotoxic medications when able. Monitor renal function closely with daily AM labs and renally dose medications when able. Can resume above home medications on discharge. Encouraged to increase his fluid intake. (5) Diabetes mellitus, type 2: Plan: Hold home agents, SSI regimen while inpatient. BSG stable. Continue BSG checks ACHS. Hgb A1c was 7.5% last month. (6) Hypertension: Plan: Continue to hold valsartan 2/2 softer BP - encouraged patient to hold this until his PCP f/u appointment. Continue decreased atenolol dose of 25mg HS as ordered by nephrology. Continue routine BP monitoring. Other Chronic Medical Conditions: HLD - Continue statin. DVT Prophylaxis: SCDs/TEDs only for now ISO anemia as per above. Code Status: FULL CODE PCP: Calvin Resendez MD Disposition: Discharge plans per primary service. Patient expressed understanding in regard to arranging a PCP f/u appointment. Offered to arrange this for him but states he will call. We will follow the patient with you during their hospital stay. You [facility] via [employer]. Patient seen in collaboration with Dr. Mann. Please see addendum. I spent a total of 35 minutes coordinating, documenting, and providing care for this patient excluding time spent in the performance of separately billed services or time spent by another provider/QHP. This included personally reviewing all current laboratories and imaging studies, medical reconciliation, outpatient chart review and discussion with specialists. This chart was completed in part utilizing Speech Voice Recognition Software. Grammatical errors, random word insertions, pronoun errors, and incomplete sentences are an occasional consequence of this system due to software limitations, ambient noise, and hardware issues. Any formal questions or concerns about the content, text, or information contained within the body of this dictation should be directly addressed to the provider for clarification. Admission and Anticipated Discharge Date Admission Date: February 13, 2025 Subjective Patient seen and examined in room W356-2. NAEO. Feeling very well this morning. Discussed low but stable H/H. He remains completely asymptomatic in this regard. Denies any lightheadedness/dizziness, SOB or chest pain. Had ZBIGNIEW drain removed yesterday. Surgical bandaging C/D/I. Encouraged to f/u with PCP within the next week for repeat CBC to closely monitor his H/H to which he expressed understanding of. Review of Systems Review of Systems: At least ten systems reviewed and negative, except as noted in the subjective section. Physical Exam Physical Exam: General: WD/WN. NAD. Sitting up in bed. Very pleasant. + somewhat pale coloration. A+Ox3. Appears comfortable. HEENT: Normocephalic, atraumatic. Conjunctivae normal. External ear and nose normal, oropharynx normal. Respiratory: Normal respiratory effort, lungs clear to auscultation bilaterally. No accessory muscle use. Cardiovascular: Regular rate and rhythm. Normal peripheral pulses. No BLE edema. Abdomen/GI: Normal bowel sounds, soft, nondistended, nontender to palpation in all quadrants. Extremities/MSK: Surgical dressing C/D/I. Able to actively move all extremities. Neurologic: No overt focal deficits, CN's II-XI not formally tested but appear grossly intact bilaterally. Results & Data Results & Data Vital Signs (Past 12 Hours) Vital Signs Temp Pulse Resp BP Pulse Ox O2 Del Method 02/18/25 07:37 36.7 C 64 18 122/66 100 Room Air Laboratory Results Short CBC 02/17/25 02/18/25 Range/Units 16:55 07:28 WBC 8.61 7.72 (4.8-10.8) K/ul Hgb 6.9 L* 6.9 L* (14.0-18.0) g/dl Hct 20.1 L* 20.6 L* (42.0-52.0) % Plt Count 186 197 (130-400) K/uL BMP 02/18/25 07:28 Sodium 138 Potassium 4.0 Chloride 108 H Carbon Dioxide 25 BUN 35 H Creatinine 1.24 Glucose 145 H Calcium 8.4 L (5) Diabetes mellitus, type 2 Diabetes mellitus correction insulin use: without biochemical engineer use Diabetes mellitus complication status: without complication Qualified Code(s): E11.9 - Type 2 diabetes mellitus without complications (6) Hypertension Hypertension type: unspecified Qualified Code(s): I10 - Essential (primary) hypertension
== END 2025-02-18 12:12 | disposition home or self-care (01) | DRG 426 ==
LOC: ASU 09:14 → 3W 15:01